=== PATIENT | male | born 1955 | race American Indian/Alaskan Native ===

== ENCOUNTER 2017-05-24 15:01 | Emergency (ER) | payer MEDICAID ==
[2017-05-24] MEDS ORDERED: WATER FOR INJ (PF) 10 ML ONE (19:52)
[2017-05-24 21:01] LABS: Bacteria,Urine 4+ /HPF (Negative); Bilirubin,Urine NEG (Negative); Blood,Urine SM (Negative); Color,Urine Yellow (Yellow); Mucus,Urine 3+ /HPF
[2017-05-24 21:03] LABS: WBC,Urine > 182.0 /HPF (0.0-6.0)
--- NOTE | 2017-05-24 22:23 | Emergency Department Report ---
ED General Adult HPI - General Chief complaint: Tube Replacement Stated complaint: CATH DISPLACED Time Seen by Provider: 05/24/17 19:29 Source: patient, EMS Mode of arrival: Stretcher Limitations: Physical Limitation - History of Present Illness Initial comments: Patient is a 62-year-old Afro-Irish male with a past medical history of advanced MS who is bedbound. Patient has a suprapubic catheter that is no longer draining. Patient complaining of suprapubic fullness. The patient denies fevers chills nausea vomiting diarrhea at this time. The patient has had multiple upper GI bleeds in the past however he is not having a bleeding symptoms at this time. Radiation: abdomen Severity scale (0 -10): 4 Consistency: constant Associated Symptoms: denies: confusion, chest pain, cough, diaphoresis, nausea/ vomiting, rash, shortness of breath, syncope, weakness - Related Data Home Medications Medication Instructions Recorded Confirmed Last Taken ALBUTEROL Inhaler [ProAir HFA 2 puff IH QID PRN 12/20/13 09/10/16 04/14/15 Inhaler] Polyethylene Glycol 3350 [Miralax 17 gm PO QDAY 12/22/14 09/11/16 04/14/15 3350] Ascorbic Acid [Vitamin C] 500 mg PO QDAY 05/04/15 09/11/16 Unknown Multivit with Iron,Minerals 1 each PO QAM 05/04/15 09/11/16 Unknown [Spectravite Senior] Sennosides/Docusate Sodium [Senna 2 each PO QHS 05/04/15 09/11/16 Unknown S Tablet] Carisoprodol [Soma] 350 mg PO TID PRN 01/15/16 09/11/16 Unknown Pregabalin [Lyrica] 100 mg PO BID 01/15/16 09/11/16 Unknown Protein Supplement [Promod] 30 ml PO TID 01/15/16 09/11/16 Unknown guaiFENesin [Guaifenesin ER] 1,200 mg PO Q12H PRN 01/15/16 09/11/16 Unknown Acetaminophen [Acetaminophen TAB] 650 mg PO Q4H PRN 09/10/16 09/10/16 Unknown Baclofen 20 mg PO TID PRN 09/10/16 09/10/16 Unknown Diazepam [Valium] 10 mg PO Q6H PRN 09/11/16 09/11/16 Unknown Furosemide [Lasix TAB] 1 tab PO BID PRN 09/11/16 09/11/16 Unknown Mirtazapine [Remeron] 15 mg PO QHS 09/11/16 09/11/16 Unknown Alpine-3/Dha/Epa/Fish Oil [Alpine 3 1,000 mg PO BID 09/11/16 09/11/16 Unknown 500 Softgel] Potassium Chloride [K-Tab ER] 1 tab PO QDAY 09/11/16 09/11/16 Unknown Warfarin Sodium [Coumadin] 4 mg PO QPM 09/11/16 09/11/16 Unknown Previous Rx's Medication Instructions Recorded Last Taken Type Ciprofloxacin HCl [Cipro] 500 mg PO BID #14 tablet 05/24/17 Unknown Rx Allergies Allergy/AdvReac Type Severity Reaction Status Date / Time carbamazepine [From Tegretol] Allergy Itching Verified 04/27/14 15:30 ketorolac tromethamine Allergy Itching Verified 05/10/14 17:55 [From Toradol] tramadol Allergy Itching Verified 04/27/14 15:30 ED Review of Systems ROS: Stated complaint: CATH DISPLACED Other details as noted in HPI Comment: All other systems reviewed and negative ED Past Medical Hx - Past Medical History Hx Hypertension: Yes Hx Diabetes: Yes Hx Deep Vein Thrombosis: Yes Additional medical history: MS, chronic pain, peripheral neuropathy, upper GI bleed - Surgical History Hx Cholecystectomy: Yes Additional Surgical History: maria del carmen filter, left foot. ana-cath - Social History Smoking Status: Former Smoker Substance Use Type: None - Medications Home Medications: Home Medications Medication Instructions Recorded Confirmed Last Taken Type ALBUTEROL Inhaler [ProAir HFA 2 puff IH QID PRN 12/20/13 09/10/16 04/14/15 History Inhaler] Polyethylene Glycol 3350 [Miralax 17 gm PO QDAY 12/22/14 09/11/16 04/14/15 History 3350] Ascorbic Acid [Vitamin C] 500 mg PO QDAY 05/04/15 09/11/16 Unknown History Multivit with Iron,Minerals 1 each PO QAM 05/04/15 09/11/16 Unknown History [Spectravite Senior] Sennosides/Docusate Sodium [Senna 2 each PO QHS 05/04/15 09/11/16 Unknown History S Tablet] Carisoprodol [Soma] 350 mg PO TID PRN 01/15/16 09/11/16 Unknown History Pregabalin [Lyrica] 100 mg PO BID 01/15/16 09/11/16 Unknown History Protein Supplement [Promod] 30 ml PO TID 01/15/16 09/11/16 Unknown History guaiFENesin [Guaifenesin ER] 1,200 mg PO Q12H PRN 01/15/16 09/11/16 Unknown History Acetaminophen [Acetaminophen TAB] 650 mg PO Q4H PRN 09/10/16 09/10/16 Unknown History Baclofen 20 mg PO TID PRN 09/10/16 09/10/16 Unknown History Diazepam [Valium] 10 mg PO Q6H PRN 09/11/16 09/11/16 Unknown History Furosemide [Lasix TAB] 1 tab PO BID PRN 09/11/16 09/11/16 Unknown History Mirtazapine [Remeron] 15 mg PO QHS 09/11/16 09/11/16 Unknown History Alpine-3/Dha/Epa/Fish Oil [Alpine 3 1,000 mg PO BID 09/11/16 09/11/16 Unknown History 500 Softgel] Potassium Chloride [K-Tab ER] 1 tab PO QDAY 09/11/16 09/11/16 Unknown History Warfarin Sodium [Coumadin] 4 mg PO QPM 09/11/16 09/11/16 Unknown History Ciprofloxacin HCl [Cipro] 500 mg PO BID #14 tablet 05/24/17 Unknown Rx ED Physical Exam - General Limitations: Physical Limitation General appearance: alert, in no apparent distress - Head Head exam: Present: atraumatic, normocephalic - Eye Eye exam: Present: normal appearance - ENT ENT exam: Present: mucous membranes moist - Neck Neck exam: Present: normal inspection - Respiratory Respiratory exam: Present: normal lung sounds bilaterally. Absent: respiratory distress - Cardiovascular Cardiovascular Exam: Present: regular rate, normal rhythm. Absent: systolic murmur, diastolic murmur, rubs, gallop - GI/Abdominal GI/Abdominal exam: Present: soft, tenderness (suprapubic), normal bowel sounds. Absent: distended, guarding, rebound - Rectal Rectal exam: Present: deferred - Extremities Exam Extremities exam: Present: normal inspection - Back Exam Back exam: Present: normal inspection - Neurological Exam Neurological exam: Present: alert, oriented X3 - Psychiatric Psychiatric exam: Present: normal affect, normal mood - Skin Skin exam: Present: warm, dry, intact, normal color. Absent: rash ED Course Vital Signs 05/24/17 05/24/17 05/24/17 16:26 16:30 16:45 Temperature Pulse Rate Respiratory Rate Blood Pressure 125/72 115/72 120/71 Blood Pressure [Right] O2 Sat by Pulse 98 Oximetry 05/24/17 05/24/17 05/24/17 17:00 17:15 17:30 Temperature Pulse Rate Respiratory Rate Blood Pressure 115/70 115/70 111/68 Blood Pressure [Right] O2 Sat by Pulse 96 97 99 Oximetry 05/24/17 05/24/17 05/24/17 17:45 18:00 18:15 Temperature Pulse Rate Respiratory Rate Blood Pressure 113/65 110/73 104/67 Blood Pressure [Right] O2 Sat by Pulse 99 99 Oximetry 05/24/17 05/24/17 05/24/17 18:30 18:45 19:00 Temperature Pulse Rate Respiratory Rate Blood Pressure 102/69 107/67 106/63 Blood Pressure [Right] O2 Sat by Pulse 99 Oximetry 05/24/17 05/24/17 05/24/17 19:05 19:15 19:26 Temperature 98.3 F 98.5 F Pulse Rate 75 Respiratory 17 Rate Blood Pressure 105/68 Blood Pressure 112/74 [Right] O2 Sat by Pulse 97 100 Oximetry 05/24/17 05/24/17 05/24/17 20:00 21:00 22:00 Temperature Pulse Rate Respiratory Rate Blood Pressure 116/77 110/65 109/68 Blood Pressure [Right] O2 Sat by Pulse 98 98 97 Oximetry ED Medical Decision Making - Lab Data Lab Results 05/24/17 Range/Units 20:30 Urine Color Yellow (Yellow) Urine Turbidity Cloudy (Clear) Urine pH 5.0 (5.0-7.0) Ur Specific [place] 1.020 (1.003-1.030) Urine Protein 30 mg/dl (Negative) mg/dL Urine Glucose (UA) Neg (Negative) mg/dL Urine Ketones Neg (Negative) mg/dL Urine Blood Sm (Negative) Urine Nitrite Neg (Negative) Urine Bilirubin Neg (Negative) Urine Urobilinogen 2.0 (<2.0) mg/dL Ur Leukocyte Esterase Lg (Negative) Urine WBC (Auto) > 182.0 H (0.0-6.0) /HPF Urine RBC (Auto) 24.0 (0.0-6.0) /HPF Urine Bacteria (Auto) 4+ (Negative) /HPF Urine WBC Clumps 1+ /HPF Urine Mucus 3+ /HPF - Medical Decision Making Patient suprapubic catheter was exchanged there is good urine flow of clear yellow urine after the exchange. Critical care attestation.: If time is entered above; I have spent that time in minutes in the direct care of this critically ill patient, excluding procedure time. ED Disposition Clinical Impression: UTI (lower urinary tract infection), Urinary retention Disposition: DC- TO HOME OR SELFCARE Is pt being admited?: No Does the pt Need Aspirin: No Condition: Fair Prescriptions: Ciprofloxacin HCl [Cipro] 500 mg PO BID #14 tablet Referrals: PATI PALACIOS MD [Primary Care Provider] - 3-5 Days
[2017-05-25 06:36] VITALS: BP 105/70
== END 2017-05-25 09:00 | disposition home or self-care (01) ==
LOC: ED 15:01
DX: N39.0 Urinary tract infection, site not specified (principal); R33.8 Other retention of urine; I10 Essential (primary) hypertension; E11.42 Type 2 diabetes mellitus with diabetic polyneuropathy; I82.409 Acute embolism and thrombosis of unspecified deep veins of unspecified lower extremity; G89.29 Other chronic pain; Z90.49 Acquired absence of other specified parts of digestive tract; Z88.8 Allergy status to other drugs, medicaments and biological substances; Z87.891 Personal history of nicotine dependence
CPT/HCPCS: 81001; 99283

== ENCOUNTER 2017-06-26 10:32 | Outpatient (CLI) | payer MEDICAID ==
--- NOTE | 2017-06-26 11:30 | Cat Scan Report ---
CT cervical spine without contrast: Neck pain. Transverse images were obtained from the posterior fossa through T2. Coronal and sagittal 2-D reformatted images included. C1-2, C2-3, and C3-4 are unremarkable. Mild degenerative apophyseal joint changes are noted bilaterally at C4-5 with no foraminal stenosis. Anterior bridging spurs however are present with slight narrowing of the interspace. At C5-6 interspace is collapsed and marked apophyseal joint proliferation is noted with moderate bilateral foraminal stenoses. Although the spinal canal may be compromised there does not appear to be significant stenosis. At C6-7 there is also narrowing of the disc space with marked uncal spurring and mild compromise of the left neural foramen. There is no prevertebral swelling. When compared to her comparable exam in December 2015 there are no changes identified. Impressions: Significant degenerative changes at C5-6 and C6-7 as described which appear stable.
== END 2017-06-26 10:33 | disposition home or self-care (01) ==
LOC: CT 10:32
PROVIDERS: ATTEND Internal Medicine
DX: M47.892 Other spondylosis, cervical region (principal)
CPT/HCPCS: 72125

== ENCOUNTER 2019-06-07 13:47 | Emergency (ER) | payer MEDICAID ==
[2019-06-07 16:03] LABS: INR 1.39 (0.87-1.13)
[2019-06-07 16:05] LABS: Basophils % (Auto) 0.5 % (0.0-1.8); Eosinophils # (Auto) 0.1 K/mm3 (0.0-0.4); Lymphocytes # (Auto) 1.7 K/mm3 (1.2-5.4); Lymphocytes % (Auto) 17.5 % (13.4-35.0); Mean Corpuscular HGB Conc 29 % (32-34); Monocytes # (Auto) 0.9 K/mm3 (0.0-0.8); Monocytes % (Auto) 9.2 % (0.0-7.3); Platelet Count 563 K/mm3 (140-440); Red Blood Count 4.51 M/mm3 (3.65-5.03)
[2019-06-07 16:06] LABS: Hematocrit 26.5 % (35.5-45.6); Hemoglobin 7.7 gm/dl (11.8-15.2)
[2019-06-07 16:07] LABS: Mean Corpuscular Volume 59 fl (84-94); Red Cell Distribution Width 20.5 % (13.2-15.2)
[2019-06-07 16:12] LABS: BUN/Creatinine Ratio 34; Blood Urea Nitrogen 17 mg/dL (9-20); Hemolysis Index 2
[2019-06-07] MEDS ORDERED: HYDROcodone/ACETAMINOPHEN 5-325 MG TAB PO ONE (16:15)
[2019-06-07] MEDS ORDERED: diphenhydrAMINE 25 MG CAP PO ONE (16:15)
--- NOTE | 2019-06-07 16:19 | Emergency Department Report ---
ED General Adult HPI - General Chief complaint: Medical Clearance Stated complaint: LOW HEMOGLOBIN Time Seen by Provider: 06/07/19 14:34 Source: EMS Mode of arrival: Stretcher Limitations: No Limitations - History of Present Illness Initial comments: 64-year-old male with a past medical history of multiple sclerosis, chronic pain, chronic pressure ulcers, diabetes, DVT on Coumadin and has a Maria [place] Carmen filter, and hypertension presents to the hospital from [facility] long-term for hemoglobin. As per labs from long-term that were drawn and reported today shows a hemoglobin of 6.7 and a hematocrit of 23.7. Patient complains of chronic back and arm pain secondary to pressure ulcers. No reports from long-term of melena, hematochezia or hematemesis. Patient was sent here for similar complaints in April a repeat hemoglobin was normal and patient was discharged from the ER. Patient states he is [place] and will not accept blood. Severity scale (0 -10): 0 - Related Data Home Medications Medication Instructions Recorded Confirmed Last Taken Albuterol INH(or & Nicu Only) 2 puff IH QID PRN 12/20/13 09/10/16 04/14/15 [ProAir HFA Inhaler] Polyethylene Glycol 3350 [Miralax 17 gm PO QDAY 12/22/14 09/11/16 04/14/15 3350] Ascorbic Acid [Vitamin C] 500 mg PO QDAY 05/04/15 09/11/16 Unknown Multivit with Iron,Minerals 1 each PO QAM 05/04/15 09/11/16 Unknown [Spectravite Senior] Sennosides/Docusate Sodium 2 each PO QHS 05/04/15 09/11/16 Unknown [Senna-S Tablet] Pregabalin [Lyrica] 100 mg PO BID 01/15/16 09/11/16 Unknown Protein Supplement [Promod] 30 ml PO TID 01/15/16 09/11/16 Unknown carisoprodoL [Soma] 350 mg PO TID PRN 01/15/16 09/11/16 Unknown guaiFENesin [Guaifenesin ER] 1,200 mg PO Q12H PRN 01/15/16 09/11/16 Unknown Acetaminophen [Acetaminophen TAB] 650 mg PO Q4H PRN 09/10/16 09/10/16 Unknown Baclofen 20 mg PO TID PRN 09/10/16 09/10/16 Unknown Diazepam [Valium] 10 mg PO Q6H PRN 09/11/16 09/11/16 Unknown Furosemide [Lasix TAB] 1 tab PO BID PRN 09/11/16 09/11/16 Unknown Mirtazapine [Remeron] 15 mg PO QHS 09/11/16 09/11/16 Unknown Caroleen-3/Dha/Epa/Fish Oil [Caroleen 3 1,000 mg PO BID 09/11/16 09/11/16 Unknown 500 Softgel] Potassium Chloride [K-Tab ER] 1 tab PO QDAY 09/11/16 09/11/16 Unknown Warfarin Sodium [Coumadin] 4 mg PO QPM 09/11/16 09/11/16 Unknown Previous Rx's Medication Instructions Recorded Last Taken Type Ciprofloxacin HCl [Cipro] 500 mg PO BID #14 tablet 05/24/17 Unknown Rx Allergies Allergy/AdvReac Type Severity Reaction Status Date / Time carbamazepine [From Tegretol] Allergy Itching Verified 04/27/14 15:30 ketorolac tromethamine Allergy Itching Verified 05/10/14 17:55 [From Toradol] tramadol Allergy Itching Verified 04/27/14 15:30 ED Review of Systems ROS: Stated complaint: LOW HEMOGLOBIN Other details as noted in HPI Comment: All other systems reviewed and negative ED Past Medical Hx - Past Medical History Previous Medical History?: Yes Hx Hypertension: Yes Hx Diabetes: Yes Hx Deep Vein Thrombosis: Yes Additional medical history: MS, chronic pain, peripheral neuropathy, upper GI bleed - Surgical History Past Surgical History?: Yes Hx Cholecystectomy: Yes Additional Surgical History: maria del carmen filter, left foot. ana-cath - Social History Smoking Status: Never Smoker Substance Use Type: None - Medications Home Medications: Home Medications Medication Instructions Recorded Confirmed Last Taken Type Albuterol INH(or & Nicu Only) 2 puff IH QID PRN 12/20/13 09/10/16 04/14/15 History [ProAir HFA Inhaler] Polyethylene Glycol 3350 [Miralax 17 gm PO QDAY 12/22/14 09/11/16 04/14/15 History 3350] Ascorbic Acid [Vitamin C] 500 mg PO QDAY 05/04/15 09/11/16 Unknown History Multivit with Iron,Minerals 1 each PO QAM 05/04/15 09/11/16 Unknown History [Spectravite Senior] Sennosides/Docusate Sodium 2 each PO QHS 05/04/15 09/11/16 Unknown History [Senna-S Tablet] Pregabalin [Lyrica] 100 mg PO BID 01/15/16 09/11/16 Unknown History Protein Supplement [Promod] 30 ml PO TID 01/15/16 09/11/16 Unknown History carisoprodoL [Soma] 350 mg PO TID PRN 01/15/16 09/11/16 Unknown History guaiFENesin [Guaifenesin ER] 1,200 mg PO Q12H PRN 01/15/16 09/11/16 Unknown History Acetaminophen [Acetaminophen TAB] 650 mg PO Q4H PRN 09/10/16 09/10/16 Unknown History Baclofen 20 mg PO TID PRN 09/10/16 09/10/16 Unknown History Diazepam [Valium] 10 mg PO Q6H PRN 09/11/16 09/11/16 Unknown History Furosemide [Lasix TAB] 1 tab PO BID PRN 09/11/16 09/11/16 Unknown History Mirtazapine [Remeron] 15 mg PO QHS 09/11/16 09/11/16 Unknown History Caroleen-3/Dha/Epa/Fish Oil [Caroleen 3 1,000 mg PO BID 09/11/16 09/11/16 Unknown History 500 Softgel] Potassium Chloride [K-Tab ER] 1 tab PO QDAY 09/11/16 09/11/16 Unknown History Warfarin Sodium [Coumadin] 4 mg PO QPM 09/11/16 09/11/16 Unknown History Ciprofloxacin HCl [Cipro] 500 mg PO BID #14 tablet 05/24/17 Unknown Rx ED Physical Exam - General Limitations: No Limitations - Other Other exam information: General: Chronic physical limitation Head exam: Atraumatic, normocephalic Eyes exam: Normal appearance ENT: Moist mucous membrane Neck exam: Normal inspection Respiratory exam: Clear to auscultation bilateral, no wheezes, rales, crackles Cardiovascular: Normal rate and rhythm Abdomen: Soft, nondistended, and nontender, with normal bowel sounds, no rebound, or guarding, suprapubic cath. Rectal: Light brown stool without melena or hematochezia guaiac-negative Extremity: Patient is a functional quadriplegia Back: Sacral pressure ulcer Neurologic: Alert, oriented x3, beats clear, functional quadriplegic with minimal movement of extremities Psychiatric: normal affect, normal mood Skin: Multiple chronic pressure ulcers including sacral area and left arm ED Course Vital Signs 06/07/19 06/07/19 14:22 14:27 Temperature 99.2 F Pulse Rate 107 H 107 H Respiratory 18 18 Rate Blood Pressure 121/74 Blood Pressure 121/74 [Right] O2 Sat by Pulse 94 95 Oximetry - Consultations Consultation #1: 06/07/19 16:25 case d/w Dr palacios, informed pt will be sent back to [place] since h/h normal ED Medical Decision Making - Lab Data Result diagrams: 06/07/19 15:18 06/07/19 15:18 Lab Results 06/07/19 06/07/19 06/07/19 Range/Units 15:18 15:18 15:18 WBC 9.8 (4.5-11.0) K/mm3 RBC 4.51 (3.65-5.03) M/mm3 Hgb 7.7 L (11.8-15.2) gm/dl Hct 26.5 L (35.5-45.6) % MCV 59 L (84-94) fl MCH 17 L (28-32) pg MCHC 29 L (32-34) % RDW 20.5 H (13.2-15.2) % Plt Count 563 H (140-440) K/mm3 Lymph % (Auto) 17.5 (13.4-35.0) % [place] % (Auto) 9.2 H (0.0-7.3) % Eos % (Auto) 1.0 (0.0-4.3) % Baso % (Auto) 0.5 (0.0-1.8) % Lymph # 1.7 (1.2-5.4) K/mm3 [place] # 0.9 H (0.0-0.8) K/mm3 Eos # 0.1 (0.0-0.4) K/mm3 Baso # 0.0 (0.0-0.1) K/mm3 Seg Neutrophils % 71.8 H (40.0-70.0) % Seg Neutrophils # 7.0 (1.8-7.7) K/mm3 PT 17.3 H (12.2-14.9) Sec. INR 1.39 H (0.87-1.13) APTT 39.0 H (24.2-36.6) Sec. Sodium 134 L (137-145) mmol/L Potassium 3.7 (3.6-5.0) mmol/L Chloride 97.4 L (98-107) mmol/L Carbon Dioxide 25 (22-30) mmol/L Anion Gap 15 mmol/L BUN 17 (9-20) mg/dL Creatinine 0.5 L (0.8-1.5) mg/dL Estimated GFR > 60 ml/min BUN/Creatinine Ratio 34 % Glucose 130 H (75-100) mg/dL Calcium 9.0 (8.4-10.2) mg/dL Blood Type 06/07/19 Range/Units 15:18 WBC (4.5-11.0) K/mm3 RBC (3.65-5.03) M/mm3 Hgb (11.8-15.2) gm/dl Hct (35.5-45.6) % MCV (84-94) fl MCH (28-32) pg MCHC (32-34) % RDW (13.2-15.2) % Plt Count (140-440) K/mm3 Lymph % (Auto) (13.4-35.0) % [place] % (Auto) (0.0-7.3) % Eos % (Auto) (0.0-4.3) % Baso % (Auto) (0.0-1.8) % Lymph # (1.2-5.4) K/mm3 [place] # (0.0-0.8) K/mm3 Eos # (0.0-0.4) K/mm3 Baso # (0.0-0.1) K/mm3 Seg Neutrophils % (40.0-70.0) % Seg Neutrophils # (1.8-7.7) K/mm3 PT (12.2-14.9) Sec. INR (0.87-1.13) APTT (24.2-36.6) Sec. Sodium (137-145) mmol/L Potassium (3.6-5.0) mmol/L Chloride (98-107) mmol/L Carbon Dioxide (22-30) mmol/L Anion Gap mmol/L BUN (9-20) mg/dL Creatinine (0.8-1.5) mg/dL Estimated GFR ml/min BUN/Creatinine Ratio % Glucose (75-100) mg/dL Calcium (8.4-10.2) mg/dL Blood Type A POSITIVE - Medical Decision Making Patient's hemoglobin is at his baseline. INR is subtherapeutic. No signs of acute active reading. Patient also would not accept leg due to visible lesion. Patient complaining of chronic pain and provided [place] and Benadryl in the ED. Will be discharged home to follow-up with PMD. - Differential Diagnosis anemia, GI bleed, coagulopathy Critical Care Time: No Critical care attestation.: If time is entered above; I have spent that time in minutes in the direct care of this critically ill patient, excluding procedure time. ED Disposition Clinical Impression: Subtherapeutic international normalized ratio (INR), Chronic anemia, Chronic pain Disposition: DC- TO HOME OR SELFCARE Is pt being admited?: No Does the pt Need Aspirin: No Condition: Stable Instructions: Chronic Pain (ED), Anemia (ED) Additional Instructions: Follow-up with your doctor. Return is symptoms worsen as indicated by your discharge instructions. Referrals: PATI PALACIOS MD [Primary Care Provider] - 3-5 Days Time of Disposition: 16:26
[2019-06-07 17:23] VITALS: BP 104/64
== END 2019-06-07 19:52 | disposition home or self-care (01) ==
LOC: ED 13:47
DX: D53.9 Nutritional anemia, unspecified (principal); G89.29 Other chronic pain; R79.1 Abnormal coagulation profile; I10 Essential (primary) hypertension; E11.21 Type 2 diabetes mellitus with diabetic nephropathy; Z90.49 Acquired absence of other specified parts of digestive tract; Z88.8 Allergy status to other drugs, medicaments and biological substances; Z79.899 Other long term (current) drug therapy; Z98.890 Other specified postprocedural states
CPT/HCPCS: 36415; 80048; 82271; 85025; 85610; 85730; 86850; 86900; 86901; 99283; 99284

== ENCOUNTER 2019-11-30 07:54 | Outpatient (CLI) | payer MEDICAID ==
[2019-12-01 16:39] LABS: INR 4.25 (0.87-1.13)
== END 2019-11-30 07:55 | disposition home or self-care (01) ==
LOC: LABHHL 07:54
PROVIDERS: ATTEND Internal Medicine
DX: I82.502 Chronic embolism and thrombosis of unspecified deep veins of left lower extremity (principal)
CPT/HCPCS: 36415; 85610

== ENCOUNTER 2021-11-13 08:22 | Inpatient (IN) | payer MEDICARE ==
[2021-11-13] MEDS ORDERED: SODIUM CHLORIDE 0.9% 1000 ML 1,000 ML ONE (08:51)
[2021-11-13] MEDS ORDERED: ONDANSETRON 4 MG/2 ML INJ IV ONE (08:54)
[2021-11-13] MEDS ORDERED: SODIUM CHLORIDE 0.9% 1000 ML 1,000 ML IV ONE (08:54)
[2021-11-13] MEDS ORDERED: ETOMIDATE 20 MG/10 ML INJ IV ONE ×2 (09:19→09:31)
[2021-11-13] MEDS ORDERED: MIDAZOLAM 2 MG/2 ML INJ ONE (09:19)
[2021-11-13] MEDS ORDERED: ROCURONIUM 50 MG/5 ML INJ IV ONE ×3 (09:20→09:31)
[2021-11-13] MEDS: PANTOPRAZOLE 80 MG in SODIUM CHLORIDE 0.9% 100 ML IV SCH ×2 (09:21→23:14)
[2021-11-13] MEDS ORDERED: MIDAZOLAM 5 MG/5 ML INJ MDV IV ONE (09:32)
[2021-11-13] MEDS ORDERED: NORepinephrine/NS 8 MG-250 ML 8 MG/250 ML INFUS..BTL IV ONE (09:33)
[2021-11-13 09:35] LABS: Hemoglobin 6.2 gm/dl (11.8-15.2); Mean Corpuscular HGB Conc 31 % (32-34); Mean Corpuscular Volume 73 fl (84-94); Platelet Count 656 K/mm3 (140-440); Red Blood Count 2.74 M/mm3 (3.65-5.03)
[2021-11-13] MEDS: NORepinephrine/NS 8 MG-250 ML 8 MG/250 ML INFUS..BTL IV SCH ×2 (09:40→21:54)
[2021-11-13 09:47] LABS: Red Cell Distribution Width 20.9 % (13.2-15.2)
--- NOTE | 2021-11-13 09:50 | Emergency Department Report ---
ED Shortness of Breath HPI - General Chief Complaint: Dyspnea/Respdistress Stated Complaint: FAILURE TO THRIVE Time Seen by Provider: 11/13/21 08:53 Source: EMS Mode of arrival: Stretcher Limitations: Other - History of Present Illness Initial Comments: 66 yo M with h/o Paraplegia [place] [facility] with difficulty breathing that started yesterday and progressively getting worse. Pt according to NH and EMS aspirate on his food yesterday and symptoms has been worsening since then. He has failed to thrive with h/o Dementia, HTn, DM and GERD. Pt denies any abdominal pain or chest pain but confirm the sob. He initially says no to intubation or resuscitation and immediately said he is not sure. Pt's medical record reviewed from halfway and noted to be full code. No other modifying or associated factors reported. - Related Data Home Medications Medication Instructions Recorded Confirmed Last Taken Albuterol Mdi (or & Nicu Only) 2 puff IH QID PRN 12/20/13 09/10/16 04/14/15 [ProAir HFA Inhaler] polyethylene glycoL 3350 [Miralax 17 gm PO QDAY 12/22/14 09/11/16 04/14/15 3350] Ascorbic Acid [Vitamin C] 500 mg PO QDAY 05/04/15 09/11/16 Unknown Multivit with Iron,Minerals 1 each PO QAM 05/04/15 09/11/16 Unknown [Spectravite Senior] Sennosides/Docusate Sodium 2 each PO QHS 05/04/15 09/11/16 Unknown [Senna-S Tablet] Pregabalin [Lyrica] 100 mg PO BID 01/15/16 09/11/16 Unknown Protein Supplement [Promod] 30 ml PO TID 01/15/16 09/11/16 Unknown carisoprodoL [Soma] 350 mg PO TID PRN 01/15/16 09/11/16 Unknown guaiFENesin [Guaifenesin ER] 1,200 mg PO Q12H PRN 01/15/16 09/11/16 Unknown Acetaminophen [Acetaminophen TAB] 650 mg PO Q4H PRN 09/10/16 09/10/16 Unknown Baclofen 20 mg PO TID PRN 09/10/16 09/10/16 Unknown Diazepam [Valium] 10 mg PO Q6H PRN 09/11/16 09/11/16 Unknown Furosemide [Lasix TAB] 1 tab PO BID PRN 09/11/16 09/11/16 Unknown Mirtazapine [Remeron] 15 mg PO QHS 09/11/16 09/11/16 Unknown [place]-3/Dha/Epa/Fish Oil [[place] 3 1,000 mg PO BID 09/11/16 09/11/16 Unknown 500 Softgel] Potassium Chloride [K-Tab ER] 1 tab PO QDAY 09/11/16 09/11/16 Unknown Warfarin Sodium [Coumadin] 4 mg PO QPM 09/11/16 09/11/16 Unknown Ascorbic Acid [Vitamin C] 500 mg PO BID 02/04/20 02/14/20 Unknown Dextran 70/Hypromellose 1 each OP DAILY 02/04/20 02/14/20 Unknown [Artificial Tears] Ferrous Sulfate [Feosol 325 MG tab] 325 mg PO BID 02/04/20 02/14/20 Unknown Mirtazapine 7.5 mg PO QHS 02/04/20 02/14/20 Unknown Pregabalin [Lyrica] 100 mg PO BID 02/04/20 02/14/20 Unknown Protein Supplement [Promod] 30 ml PO TID 02/04/20 02/14/20 Unknown Warfarin [Coumadin] 5 mg PO QDAY 02/04/20 02/14/20 Unknown fentaNYL [Fentanyl] 1 each TD DAILY 02/04/20 02/14/20 Unknown Previous Rx's Medication Instructions Recorded Last Taken Type Ciprofloxacin HCl [Cipro] 500 mg PO BID #14 tablet 05/24/17 Unknown Rx Pantoprazole [Protonix TAB] 40 mg PO BIDAC #60 tablet 02/18/20 Unknown Rx Vancomycin 125 mg PO Q6HR 10 Days 02/18/20 Unknown Rx Cefepime 1 gm IV Q24H 7 Days vial 02/23/21 Unknown Rx Allergies Allergy/AdvReac Type Severity Reaction Status Date / Time carbamazepine [From Tegretol] Allergy Itching Verified 08/14/21 06:58 ketorolac tromethamine Allergy Itching Verified 08/14/21 06:58 [From Toradol] tramadol Allergy Itching Verified 08/14/21 06:58 hydromorphone AdvReac Unknown Verified 08/14/21 06:58 ketorolac [From Toradol] AdvReac Unknown Verified 08/14/21 06:58 meperidine AdvReac Unknown Verified 08/14/21 06:58 ED Review of Systems ROS: Stated complaint: FAILURE TO THRIVE Other details as noted in HPI Comment: All other systems reviewed and negative Constitutional: weakness Respiratory: orthopnea, shortness of breath ED Past Medical Hx - Past Medical History Hx Hypertension: Yes Hx Diabetes: Yes Hx Deep Vein Thrombosis: Yes Hx GERD: Yes Hx Asthma: Yes Hx Dementia: Yes Additional medical history: Paraplegia. Multiple Sclerosis. Depression. UTI. Dysphagia/Oropharangeal Phase. Constipation - Surgical History Hx Cholecystectomy: Yes Additional Surgical History: [employer]ia [place] [employer] filter, left foot. ana-cath - Social History Smoking Status: Unknown if ever smoked - Medications Home Medications: Home Medications Medication Instructions Recorded Confirmed Last Taken Type Albuterol Mdi (or & Nicu Only) 2 puff IH QID PRN 12/20/13 09/10/16 04/14/15 History [ProAir HFA Inhaler] polyethylene glycoL 3350 [Miralax 17 gm PO QDAY 12/22/14 09/11/16 04/14/15 History 3350] Ascorbic Acid [Vitamin C] 500 mg PO QDAY 05/04/15 09/11/16 Unknown History Multivit with Iron,Minerals 1 each PO QAM 05/04/15 09/11/16 Unknown History [Spectravite Senior] Sennosides/Docusate Sodium 2 each PO QHS 05/04/15 09/11/16 Unknown History [Senna-S Tablet] Pregabalin [Lyrica] 100 mg PO BID 01/15/16 09/11/16 Unknown History Protein Supplement [Promod] 30 ml PO TID 01/15/16 09/11/16 Unknown History carisoprodoL [Soma] 350 mg PO TID PRN 01/15/16 09/11/16 Unknown History guaiFENesin [Guaifenesin ER] 1,200 mg PO Q12H PRN 01/15/16 09/11/16 Unknown History Acetaminophen [Acetaminophen TAB] 650 mg PO Q4H PRN 09/10/16 09/10/16 Unknown History Baclofen 20 mg PO TID PRN 09/10/16 09/10/16 Unknown History Diazepam [Valium] 10 mg PO Q6H PRN 09/11/16 09/11/16 Unknown History Furosemide [Lasix TAB] 1 tab PO BID PRN 09/11/16 09/11/16 Unknown History Mirtazapine [Remeron] 15 mg PO QHS 09/11/16 09/11/16 Unknown History [place]-3/Dha/Epa/Fish Oil [[place] 3 1,000 mg PO BID 09/11/16 09/11/16 Unknown History 500 Softgel] Potassium Chloride [K-Tab ER] 1 tab PO QDAY 09/11/16 09/11/16 Unknown History Warfarin Sodium [Coumadin] 4 mg PO QPM 09/11/16 09/11/16 Unknown History Ciprofloxacin HCl [Cipro] 500 mg PO BID #14 tablet 05/24/17 Unknown Rx Ascorbic Acid [Vitamin C] 500 mg PO BID 02/04/20 02/14/20 Unknown History Dextran 70/Hypromellose 1 each OP DAILY 02/04/20 02/14/20 Unknown History [Artificial Tears] Ferrous Sulfate [Feosol 325 MG tab] 325 mg PO BID 02/04/20 02/14/20 Unknown H istory Mirtazapine 7.5 mg PO QHS 02/04/20 02/14/20 Unknown History Pregabalin [Lyrica] 100 mg PO BID 02/04/20 02/14/20 Unknown History Protein Supplement [Promod] 30 ml PO TID 02/04/20 02/14/20 Unknown History Warfarin [Coumadin] 5 mg PO QDAY 02/04/20 02/14/20 Unknown History fentaNYL [Fentanyl] 1 each TD DAILY 02/04/20 02/14/20 Unknown History Pantoprazole [Protonix TAB] 40 mg PO BIDAC #60 tablet 02/18/20 Unknown Rx Vancomycin 125 mg PO Q6HR 10 Days 02/18/20 Unknown Rx Cefepime 1 gm IV Q24H 7 Days vial 02/23/21 Unknown Rx ED Physical Exam - General Limitations: Other (dementia and clinical presentation ) General appearance: lethargic, in distress (due to dyspnea) - Head Head exam: Present: atraumatic - Eye Eye exam: Present: normal appearance - ENT ENT exam: Present: mucous membranes dry - Neck Neck exam: Absent: tenderness, thyromegaly - Respiratory Respiratory exam: Present: respiratory distress (mild to moderate ), other (distance heart sound ) - Cardiovascular Cardiovascular Exam: Present: tachycardia - GI/Abdominal GI/Abdominal exam: Present: soft, normal bowel sounds. Absent: distended, t enderness, guarding - Extremities Exam Extremities exam: Present: pedal edema (+1 bilaterally with and paraplegic ) - Back Exam Back exam: Absent: tenderness - Neurological Exam Neurological exam: Present: alert, oriented X3 - Psychiatric Psychiatric exam: Present: normal affect - Skin Skin exam: Present: warm, dry ED Course Vital Signs 11/13/21 11/13/21 11/13/21 08:40 08:46 08:49 Temperature Pulse Rate 136 H 135 H 138 H Respiratory 43 H 51 H 48 H Rate Blood Pressure Blood Pressure 81/51 [Left] O2 Sat by Pulse 85 94 85 Oximetry 11/13/21 11/13/21 11/13/21 09:00 09:23 09:25 Temperature Pulse Rate 134 H 135 H 132 H Respiratory 47 H 49 H 42 H Rate Blood Pressure 93/74 Blood Pressure 90/52 [Left] O2 Sat by Pulse 100 Oximetry 11/13/21 11/13/21 11/13/21 09:30 09:45 10:00 Temperature Pulse Rate 123 H 129 H 131 H Respiratory 23 21 17 Rate Blood Pressure 93/49 93/58 110/67 Blood Pressure [Left] O2 Sat by Pulse 100 Oximetry 11/13/21 11/13/21 11/13/21 10:15 10:30 10:45 Temperature 96.5 F L Pulse Rate 133 H 132 H 132 H Respiratory 16 16 16 Rate Blood Pressure 106/70 100/70 105/71 Blood Pressure [Left] O2 Sat by Pulse 100 100 Oximetry 11/13/21 11/13/21 11/13/21 11:00 11:15 11:24 Temperature Pulse Rate 127 H 124 H 124 H Respiratory 15 16 Rate Blood Pressure 102/68 105/69 111/69 Blood Pressure [Left] O2 Sat by Pulse 100 100 100 Oximetry 11/13/21 11/13/21 11/13/21 11:30 11:45 12:00 Temperature Pulse Rate 126 H 117 H 118 H Respiratory 16 16 16 Rate Blood Pressure 117/73 81/50 93/56 Blood Pressure [Left] O2 Sat by Pulse 100 100 Oximetry 11/13/21 11/13/21 11/13/21 12:15 12:30 12:45 Temperature Pulse Rate 119 H 121 H 128 H Respiratory 16 16 16 Rate Blood Pressure 97/62 94/63 80/58 Blood Pressure [Left] O2 Sat by Pulse 100 Oximetry - Consultations Consultation #1: 11/13/21 13:00 Dr Mckeon consulted who wanted Dr Corbin notified-- he was called Consultation #2: 11/13/21 13:00 Dr Corbin consulted who wanted patient started on vancomycin and cefepime--he suggested central line-- but patient already have 2 peripheral IV line,and a Port with IJ. 11/13/21 13:01 11/13/21 13:02 - Intubation Time Out Performed: Yes Sedative: Etomidate Mg Given: 20 Paralytic: Rocuronium Mg Given: 60 Laryngoscope: Johnson Size: 4 ET Tube Size: 7.5 Tube Secured Depth (cm): 23 Tube Secured Location: lips Tube Placement Confirmation: visualized tube passing t Patient Tolerated Procedure: well, no complications Intubation Complications: none Additional Comments: pt tolerated procedure well--with no obvious complication ED Medical Decision Making - Lab Data Result diagrams: 11/13/21 09:03 11/13/21 09:03 - EKG Data -: EKG Interpreted by Ne EKG shows normal: sinus rhythm Rate: tachycardia - EKG Data 11/13/21 10:15 Noted with sinus tachycardia at the rate of 135 beats per minutes, nonspecific ST abnormality with normal QTC in this abnormal ECG. - Radiology Data FINDINGS: SUPPORT DEVICES: ET tube tip is about 7 cm above the sofiya. Right IJ central venous catheter in appropriate position. HEART / MEDIASTINUM: No significant abnormality. LUNGS / PLEURA: There is a moderate left pleural effusion with left basilar a telectasis. No appreciable pneumothorax. ADDITIONAL FINDINGS: No significant additional findings. - Medical Decision Making Here with shortness of breath--this is likely aspirated pneumonia/pneumonitis considering the even during eating yesterday-- but among other differential diagnosis could be but not limited to myocardiac infarction, pulmonary embolism, acute exacerbation of asthma, pneumothorax, pneumonia or Viral or Bacterial Upper/Lower respiratory tract infection or other systemic infection.--To rule out the above will go ahead and order EKG, cardiac enzyme including troponin, BNP, CKMB, chest x-ray, CBC, CMP, UA and or D-dimer. In the meantime we will go ahead and start aggressive ivf hydration with ns considering hypotension with tachycardia--which raises concern for sepsis in this critical patient-- Will also start levophed for the hypotension since it was not responding to the pressured bag ns. I witnessed patient desat on non rebreather with 10 L so after confirming this patient to be full code will immediately plan to intubate. Please see procedure note for details. Will wait for other labs to support sepsis and then start antibiotics. Source is likely pulmonary. CXR shows ET above the sofiya but with no significant pulmonary infiltrate but moderate left pleural effusion-- that could be contributing to his difficulty breathing but not likely the main culprit-- will continue to monitor and digging in for other source-- UA still pending at this time. Noted with leukocytosis with a white count of more than 19,000, BUN and creatinine of 45/0.7 likely as a result of dehydration--also noted with low H&H of 6.2/20--with no sign of bleeding but with history of anemia that likely worsening--we will go ahead and order 1 unit of red blood cells and continue to monitor. At this point Dr. Mckeon who is the hospitalist on-call was paged and patient discussed and accepted patient for further evaluation and treatment. He however wanted Dr. Corbin to be consulted for possible ICU placement. Critical Care Time: Yes (120) Critical care time in (mins) excluding proc time.: 120 Critical care attestation.: If time is entered above; I have spent that time in minutes in the direct care of this critically ill patient, excluding procedure time. Patient brought in with dyspnea and noted to be tachycardic and hypotensive and lethargic and due to high probability of clinically significant, life threatening deterioration, this patient required my highest level of preparedness to intervene emergently and I personally spent this critical care time directly and personally managing this patient. This critical care time included obtaining a history; examining this patient; pulse oximetry ; ordering and review of studies ; arranging urgent treatment with development of a management plan ; evaluation of patient's response to treatment ; frequent reassessment ; and, discussion with other providers. This critical care time was performed to assess and manage the high probability of imminent, life- threatening deterioration that could result in multiple organ damage if not done in a timely fashion. Critical Care Time: 120 ED Disposition Clinical Impression: Tachycardia, Hypotensive episode, Pleural effusion, left Dyspnea Qualifiers: Dyspnea type: acute respiratory distress Qualified Code(s): R06.03 - Acute respiratory distress Anemia Qualifiers: Anemia type: unspecified type Qualified Code(s): D64.9 - Anemia, unspecified Disposition: 09 ADMITTED INPATIENT Is pt being admited?: No Does the pt Need Aspirin: No Condition: Stable Time of Disposition: 13:03 (Dr Mckeon and Emerald consulted )
[2021-11-13 09:51] LABS: Alanine Aminotransferase 10 units/L (7-56); Albumin 2.5 g/dL (3.9-5); Blood Urea Nitrogen 45 mg/dL (9-20); Calcium 8.5 mg/dL (8.4-10.2); Hemolysis Index 2; INR 1.2 (0.87-1.13)
[2021-11-13 09:52] LABS: BUN/Creatinine Ratio 64
--- NOTE | 2021-11-13 09:56 | XRay Report ---
CHEST 1 VIEW 11/13/2021 8:50 AM INDICATION / CLINICAL INFORMATION: Shortness of breath. COMPARISON: 02/21/2021 FINDINGS: SUPPORT DEVICES: ET tube tip is about 7 cm above the sofiya. Right IJ central venous catheter in appr opriate position. HEART / MEDIASTINUM: No significant abnormality. LUNGS / PLEURA: There is a moderate left pleural effusion with left basilar atelectasis. No appreciab le pneumothorax. ADDITIONAL FINDINGS: No significant additional findings. Signer Name: Forrest Webster MD Signed: 11/13/2021 9:52 AM Workstation Name: [id number]
[2021-11-13 09:57] LABS: Free T4 (Free Thyroxine) 1.27 ng/dL (0.76-1.46)
[2021-11-13] MEDS ORDERED: fentaNYL 100 MCG/2 ML INJ IV PRN (10:42)
[2021-11-13 10:52] LABS: ABG Base Excess 1.1 mmol/L (-2.0-3.0); ABG HCO3 25.3 mmol/L (20.0-26.0); ABG Methemoglobin 0.5 % (0.0-1.5); ABG Oxygen Saturation 99.5 % (95.0-99.0); ABG PCO2 37.8 mm Hg; ABG PH 7.443 pH Units (7.350-7.450)
[2021-11-13 10:54] LABS: ABG PO2 284.1 mm Hg (80.0-90.0)
[2021-11-13 11:06] LABS: Basophils % (Manual) 0 % (0.0-1.8); Eosinophils % (Manual) 0 % (0.0-4.3); Total Cells Counted 100
[2021-11-13 11:07] LABS: Anisocytosis 2+; Hypochromasia 1+; Platelet Estimate Consistent w Auto
[2021-11-13] MEDS: fentaNYL DRIP Premix 2,000 MCG/100 ML BAG IV SCH ×2 (11:37→18:00)
[2021-11-13 12:55] LABS: Color,Urine Yellow (Yellow)
[2021-11-13 12:58] LABS: Blood,Urine Large (Negative)
[2021-11-13 13:00] LABS: Bilirubin,Urine Negative (Negative)
[2021-11-13] MEDS ORDERED: CEFEPIME/NS 1 GM/100 ML 1 GM/100 ML BAG IV ONE (13:06)
[2021-11-13] MEDS ORDERED: ACETAMINOPHEN 650 MG RECT SUPP PR PRN (13:07)
[2021-11-13 13:13] LABS: RBC,Urine > 182.0 /HPF (0.0-6.0); WBC,Urine > 182.0 /HPF (0.0-6.0)
[2021-11-13 13:19] LABS: Bacteria,Urine 2+ /HPF (Negative)
[2021-11-13 13:41] LABS: Chol/HDL Ratio 4.1 %
[2021-11-13] MEDS ORDERED: SODIUM CHLORIDE 0.9% 500 ML 500 ML IV ONE (13:41)
--- NOTE | 2021-11-13 14:04 | XRay Report ---
ABDOMEN 1 VIEW(S) INDICATION / CLINICAL INFORMATION: NG tube verification. COMPARISON: None available. FINDINGS: TUBES / LINES: Esophagogastric tube tip and side-port are within the stomach. BOWEL GAS PATTERN: There is mild gaseous distention of small bowel. Mild constipation is noted. FREE AIR / EXTRALUMINAL GAS: None seen. ADDITIONAL FINDINGS: IVC filter is noted. IMPRESSION: 1. Esophagogastric tube is in satisfactory position. 2. In addition to constipation with probable rectal fecal impaction, there is mild gaseous distention of small bowel diffusely. Signer Name: Quincy Bentley MD Signed: 11/13/2021 1:59 PM Workstation Name: [email or web address]
[2021-11-13] MEDS: VANCOMYCIN/NS 1 GM/250 ML 1 GM/250 ML BAG IV ONE ×2 (16:35→22:29)
[2021-11-13] MEDS ORDERED: ONDANSETRON 4 MG/2 ML INJ IV PRN (21:18)
[2021-11-13] MEDS ORDERED: METOCLOPRAMIDE 10 MG/2 ML INJ IV PRN (21:18)
[2021-11-13] MEDS ORDERED: ACETAMINOPHEN 325 MG TAB PO PRN (21:18)
[2021-11-13] MEDS ORDERED: IPRATROPIUM/ALBUTEROL SULFATE 3 ML AMPUL.NEB IH PRN (21:21)
--- NOTE | 2021-11-13 21:22 | History and Physical Report ---
History of Present Illness Date of examination: 11/13/21 Date of admission: 11/13/21 13:11 Chief complaint: Increasing shortness of breath for 1 day History of present illness: 66-year-old male with multiple medical problems and from custodial facility with past medical history of paraplegia severe malnutrition COPD and congestive heart failure sent in for increasing shortness of breath since last night. Patient also has failure to thrive with history of dementia. Patient was in severe respiratory distress and patient was intubated in the emergency room. No fever or chills. Patient was hypoxic at the time of intubation. - Past Medical History --Hypertension: Yes --Diabetes: Yes --Deep Vein Thrombosis: Yes --GERD: Yes --Asthma: Yes --Dementia: Yes --Additional medical history: Paraplegia. Multiple Sclerosis. Depression. UTI. Dysphagia/Oropharangeal Phase. Constipation - Surgical History --Cholecystectomy: Yes --Additional Surgical History: maria del carmen filter, left foot. ana-cath - Social History --Smoking Status: Unknown if ever smoked Review of Systems ROS: Stated complaint: FAILURE TO THRIVE Other details as noted in HPI Comment: All other systems reviewed and negative Constitutional: weakness Respiratory: orthopnea, shortness of breath Medications and Allergies Allergies Allergy/AdvReac Type Severity Reaction Status Date / Time carbamazepine [From Tegretol] Allergy Itching Verified 08/14/21 06:58 ketorolac tromethamine Allergy Itching Verified 08/14/21 06:58 [From Toradol] tramadol Allergy Itching Verified 08/14/21 06:58 hydromorphone AdvReac Unknown Verified 08/14/21 06:58 ketorolac [From Toradol] AdvReac Unknown Verified 08/14/21 06:58 meperidine AdvReac Unknown Verified 08/14/21 06:58 Home Medications Medication Instructions Recorded Confirmed Last Taken Type Albuterol Mdi (or & Nicu Only) 2 puff IH QID PRN 12/20/13 09/10/16 04/14/15 History [ProAir HFA Inhaler] polyethylene glycoL 3350 [Miralax 17 gm PO QDAY 12/22/14 09/11/16 04/14/15 History 3350] Ascorbic Acid [Vitamin C] 500 mg PO QDAY 05/04/15 09/11/16 Unknown History Multivit with Iron,Minerals 1 each PO QAM 05/04/15 09/11/16 Unknown History [Spectravite Senior] Sennosides/Docusate Sodium 2 each PO QHS 05/04/15 09/11/16 Unknown History [Senna-S Tablet] Pregabalin [Lyrica] 100 mg PO BID 01/15/16 09/11/16 Unknown History Protein Supplement [Promod] 30 ml PO TID 01/15/16 09/11/16 Unknown History carisoprodoL [Soma] 350 mg PO TID PRN 01/15/16 09/11/16 Unknown History guaiFENesin [Guaifenesin ER] 1,200 mg PO Q12H PRN 01/15/16 09/11/16 Unknown History Acetaminophen [Acetaminophen TAB] 650 mg PO Q4H PRN 09/10/16 09/10/16 Unknown History Baclofen 20 mg PO TID PRN 09/10/16 09/10/16 Unknown History Diazepam [Valium] 10 mg PO Q6H PRN 09/11/16 09/11/16 Unknown History Furosemide [Lasix TAB] 1 tab PO BID PRN 09/11/16 09/11/16 Unknown History Mirtazapine [Remeron] 15 mg PO QHS 09/11/16 09/11/16 Unknown History [place]-3/Dha/Epa/Fish Oil [[place] 3 1,000 mg PO BID 09/11/16 09/11/16 Unknown History 500 Softgel] Potassium Chloride [K-Tab ER] 1 tab PO QDAY 09/11/16 09/11/16 Unknown History Warfarin Sodium [Coumadin] 4 mg PO QPM 09/11/16 09/11/16 Unknown History Ciprofloxacin HCl [Cipro] 500 mg PO BID #14 tablet 05/24/17 Unknown Rx Ascorbic Acid [Vitamin C] 500 mg PO BID 02/04/20 02/14/20 Unknown History Dextran 70/Hypromellose 1 each OP DAILY 02/04/20 02/14/20 Unknown History [Artificial Tears] Ferrous Sulfate [Feosol 325 MG tab] 325 mg PO BID 02/04/20 02/14/20 Unknown History Mirtazapine 7.5 mg PO QHS 02/04/20 02/14/20 Unknown History Pregabalin [Lyrica] 100 mg PO BID 02/04/20 02/14/20 Unknown History Protein Supplement [Promod] 30 ml PO TID 02/04/20 02/14/20 Unknown History Warfarin [Coumadin] 5 mg PO QDAY 02/04/20 02/14/20 Unknown History fentaNYL [Fentanyl] 1 each TD DAILY 02/04/20 02/14/20 Unknown History Pantoprazole [Protonix TAB] 40 mg PO BIDAC #60 tablet 02/18/20 Unknown Rx Vancomycin 125 mg PO Q6HR 10 Days 02/18/20 Unknown Rx Cefepime 1 gm IV Q24H 7 Days vial 02/23/21 Unknown Rx Active Meds: Active Medications Acetaminophen (Acetaminophen 650 Mg Rect Supp) 650 mg AL Q6H PRN PRN Reason: Pain MILD(1-3)/Fever >100.5/CHIU Fentanyl (Fentanyl 100 Mcg/2 Ml Inj) 50 mcg IV Q10MIN PRN PRN Reason: ANALGESIA Last Admin: 11/13/21 10:49 Dose: 50 mcg Pantoprazole Sodium 80 mg/ (Sodium Chloride) 100 mls @ 10 mls/hr IV DIRECT YE Last Admin: 11/13/21 09:21 Dose: 8 mg/hr, 10 mls/hr NORepinephrine/NS 8 MG-250 ML (Norepinephrine/Ns 8 Mg-250 Ml (Double Conc)) 8 mg in 250 mls @ 3.75 mls/hr IV TITRATE YE; Protocol Last Titration: 11/13/21 19:58 Dose: Infused Propofol (Diprivan 10 Mg/Ml) 1,000 mg in 100 mls @ 2.041 mls/hr IV TITR YE; Pr otocol Last Titration: 11/13/21 13:55 Dose: 20 mcg/kg/min, 8.165 mls/hr Fentanyl Citrate (Fentanyl Drip Premix) 2,000 mcg in 100 mls @ 3.402 mls/hr IV TITR YE; Protocol Last Admin: 11/13/21 18:00 Dose: 3 mcg/kg/hr, 10.206 mls/hr Morphine Sulfate (Morphine 2 Mg/1 Ml Inj) 2 mg IV Q4H PRN PRN Reason: Pain, Moderate (4-6) Sodium Chloride (Sodium Chloride 0.9% 10 Ml Flush Syringe) 10 ml IV PRN PRN PRN Reason: LINE FLUSH Sodium Chloride (Sodium Chloride 0.9% 10 Ml Flush Syringe) 10 ml IV BID YE Exam - Constitutional Vitals: Temp Pulse Resp BP Pulse Ox 99.4 F 126 H 16 86/58 100 11/13/21 20:40 11/13/21 19:45 11/13/21 19:45 11/13/21 19:45 11/13/21 19:45 General appearance: Present: severe distress, well-nourished - EENT Eyes: Present: PERRL ENT: hearing intact, clear oral mucosa - Neck Neck: Present: supple, normal ROM - Respiratory Respiratory effort: normal Respiratory: bilateral: CTA - Cardiovascular Heart rate: 78 Rhythm: regular Heart Sounds: Present: S1 & S2. Absent: rub, click - Extremities Extremities: pulses symmetrical, No edema Peripheral Pulses: within normal limits - Abdominal General gastrointestinal: Present: soft, non-tender, non-distended, normal bowel sounds Male genitourinary: Present: normal - Integumentary Integumentary: Present: clear, warm, dry - Musculoskeletal Musculoskeletal: generalized weakness - Psychiatric Psychiatric: other (Decreased responsiveness) - Neurologic Neurologic: moves all extremities, other (Contractures of both lower extremities) - Allied Health Allied health notes reviewed: nursing, case management HEART Score - HEART Score Troponin: Troponin T 0.050 ng/mL (0.00-0.029) H 11/13/21 11:33 Results - Labs CBC & Chem 7: 11/14/21 05:30 11/14/21 05:30 Labs: Laboratory Last Values WBC 19.5 K/mm3 (4.5-11.0) H 11/13/21 09:03 RBC 2.74 M/mm3 (3.65-5.03) L 11/13/21 09:03 Hgb 6.2 gm/dl (11.8-15.2) L 11/13/21 09:03 Hct 20.0 % (35.5-45.6) L 11/13/21 09:03 MCV 73 fl (84-94) L 11/13/21 09:03 MCH 23 pg (28-32) L 11/13/21 09:03 MCHC 31 % (32-34) L 11/13/21 09:03 RDW 20.9 % (13.2-15.2) H 11/13/21 09:03 Plt Count 656 K/mm3 (140-440) H 11/13/21 09:03 Add Manual Diff Complete 11/13/21 09:03 Total Counted 100 11/13/21 09:03 Seg Neutrophils % [place] [employer] 11/13/21 09:03 Seg Neuts % (Manual) 97.0 % (40.0-70.0) H 11/13/21 09:03 Band Neutrophils % 0 % 11/13/21 09:03 Lymphocytes % (Manual) 1.0 % (13.4-35.0) L 11/13/21 09:03 Reactive Lymphs % (Man) 0 % 11/13/21 09:03 Monocytes % (Manual) 2.0 % (0.0-7.3) 11/13/21 09:03 Eosinophils % (Manual) 0 % (0.0-4.3) 11/13/21 09:03 Basophils % (Manual) 0 % (0.0-1.8) 11/13/21 09:03 Metamyelocytes % 0 % 11/13/21 09:03 Myelocytes % 0 % 11/13/21 09:03 Promyelocytes % 0 % 11/13/21 09:03 Blast Cells % 0 % 11/13/21 09:03 Nucleated RBC % Not Reportable 11/13/21 09:03 Seg Neutrophils # Man 18.9 K/mm3 (1.8-7.7) H 11/13/21 09:03 Band Neutrophils # 0.0 K/mm3 11/13/21 09:03 Lymphocytes # (Manual) 0.2 K/mm3 (1.2-5.4) L 11/13/21 09:03 Abs React Lymphs (Man) 0.0 K/mm3 11/13/21 09:03 Monocytes # (Manual) 0.4 K/mm3 (0.0-0.8) 11/13/21 09:03 Eosinophils # (Manual) 0.0 K/mm3 (0.0-0.4) 11/13/21 09:03 Basophils # (Manual) 0.0 K/mm3 (0.0-0.1) 11/13/21 09:03 Metamyelocytes # 0.0 K/mm3 11/13/21 09:03 Myelocytes # 0.0 K/mm3 11/13/21 09:03 Promyelocytes # 0.0 K/mm3 11/13/21 09:03 Blast Cells # 0.0 K/mm3 11/13/21 09:03 WBC Morphology Not Reportable 11/13/21 09:03 Hypersegmented Neuts Not Reportable 11/13/21 09:03 Hyposegmented Neuts Not Reportable 11/13/21 09:03 Hypogranular Neuts Not Reportable 11/13/21 09:03 Smudge Cells Not Reportable 11/13/21 09:03 Toxic Granulation Not Reportable 11/13/21 09:03 Toxic Vacuolation Not Reportable 11/13/21 09:03 Dohle Bodies Not Reportable 11/13/21 09:03 Pelger-Huet Anomaly Not Reportable 11/13/21 09:03 Agata Rods Not Reportable 11/13/21 09:03 Platelet Estimate Consistent w auto 11/13/21 09:03 Clumped Platelets Not Reportable 11/13/21 09:03 Plt Clumps, EDTA Not Reportable 11/13/21 09:03 Large Platelets Not Reportable 11/13/21 09:03 Giant Platelets Not Reportable 11/13/21 09:03 Platelet Satelliting Not Reportable 11/13/21 09:03 Plt Morphology Comment Not Reportable 11/13/21 09:03 RBC Morphology Not Reportable 11/13/21 09:03 Dimorphic RBCs Not Reportable 11/13/21 09:03 Polychromasia Few 11/13/21 09:03 Hypochromasia 1+ 11/13/21 09:03 Poikilocytosis Not Reportable 11/13/21 09:03 Anisocytosis 2+ 11/13/21 09:03 Microcytosis Not Reportable 11/13/21 09:03 Macrocytosis Not Reportable 11/13/21 09:03 Spherocytes Not Reportable 11/13/21 09:03 Pappenheimer Bodies Not Reportable 11/13/21 09:03 Sickle Cells Not Reportable 11/13/21 09:03 Target Cells Not Reportable 11/13/21 09:03 Tear Drop Cells Not Reportable 11/13/21 09:03 Ovalocytes Not Reportable 11/13/21 09:03 Helmet Cells Not Reportable 11/13/21 09:03 [place] Bodies Not Reportable 11/13/21 09:03 [place] Rings Not Reportable 11/13/21 09:03 [place] Cells Not Reportable 11/13/21 09:03 Bite Cells Not Reportable 11/13/21 09:03 Crenated Cell Not Reportable 11/13/21 09:03 Elliptocytes Not Reportable 11/13/21 09:03 Acanthocytes (Spur) Not Reportable 11/13/21 09:03 Rouleaux Not Reportable 11/13/21 09:03 Hemoglobin C Crystals Not Reportable 11/13/21 09:03 Schistocytes Not Reportable 11/13/21 09:03 Malaria parasites Not Reportable 11/13/21 09:03 [place] Bodies Not Reportable 11/13/21 09:03 Hem Pathologist Commnt No 11/13/21 09:03 PT 16.9 Sec. (12.2-14.9) H 11/13/21 09:03 INR 1.20 (0.87-1.13) H 11/13/21 09:03 APTT 32.0 Sec. (24.2-36.6) 11/13/21 09:03 ABG pH 7.443 pH Units (7.350-7.450) 11/13/21 10:22 ABG pCO2 37.8 mm Hg 11/13/21 10:22 ABG pO2 284.1 mm Hg (80.0-90.0) H 11/13/21 10:22 ABG HCO3 25.3 mmol/L (20.0-26.0) 11/13/21 10:22 ABG O2 Saturation 99.5 % (95.0-99.0) H 11/13/21 10:22 ABG O2 Content 9.3 (0.0-44) 11/13/21 10:22 ABG Base Excess 1.1 mmol/L (-2.0-3.0) 11/13/21 10:22 ABG Hemoglobin 6.2 gm/dl (14.0-18.0) L 11/13/21 10:22 ABG Carboxyhemoglobin 1.5 % (0.0-5.0) 11/13/21 10:22 ABG Methemoglobin 0.5 % (0.0-1.5) 11/13/21 10:22 Oxyhemoglobin 97.5 % (95.0-99.0) 11/13/21 10:22 FiO2 100 % 11/13/21 10:22 Sodium 139 mmol/L (137-145) 11/13/21 09:03 Potassium 4.2 mmol/L (3.6-5.0) 11/13/21 09:03 Chloride 100.6 mmol/L (98-107) 11/13/21 09:03 Carbon Dioxide 21 mmol/L (22-30) L 11/13/21 09:03 Anion Gap 22 mmol/L 11/13/21 09:03 BUN 45 mg/dL (9-20) H 11/13/21 09:03 Creatinine 0.7 mg/dL (0.8-1.3) L 11/13/21 09:03 Estimated GFR > 60 ml/min 11/13/21 09:03 BUN/Creatinine Ratio 64 % 11/13/21 09:03 Glucose 173 mg/dL (75-100) H 11/13/21 09:03 Calcium 8.5 mg/dL (8.4-10.2) 11/13/21 09:03 Total Bilirubin 0.20 mg/dL (0.1-1.2) 11/13/21 09:03 AST 9 units/L (5-40) 11/13/21 09:03 ALT 10 units/L (7-56) 11/13/21 09:03 Alkaline Phosphatase 84 units/L (35-129) 11/13/21 09:03 Troponin T 0.050 ng/mL (0.00-0.029) H 11/13/21 11:33 NT-Pro-B Natriuret Pep 1118 pg/mL (0-900) H 11/13/21 09:03 Total Protein 7.1 g/dL (6.3-8.2) 11/13/21 09:03 Albumin 2.5 g/dL (3.9-5) L 11/13/21 09:03 Albumin/Globulin Ratio 0.5 % 11/13/21 09:03 Triglycerides 96 mg/dL (2-149) 11/13/21 11:33 Cholesterol 115 mg/dL (50-199) 11/13/21 11:33 LDL Cholesterol Direct 61 mg/dL (50-130) 11/13/21 11:33 HDL Cholesterol 28 mg/dL (40-59) L 11/13/21 11:33 Cholesterol/HDL Ratio 4.10 % 11/13/21 11:33 TSH 1.680 mlU/mL (0.270-4.200) 11/13/21 09:03 Free T4 1.27 ng/dL (0.76-1.46) 11/13/21 09:03 Urine Color Yellow (Yellow) 11/13/21 11:12 Urine Turbidity Cloudy (Clear) 11/13/21 11:12 Urine pH 6.0 (5.0-7.0) 11/13/21 11:12 Ur Specific [place] 1.015 (1.003-1.030) 11/13/21 11:12 Urine Protein 100 mg/dl mg/dL (Negative) 11/13/21 11:12 Urine Glucose (UA) Negative mg/dL (Negative) 11/13/21 11:12 Urine Ketones 15 mg/dL (Negative) 11/13/21 11:12 Urine Blood Large (Negative) A 11/13/21 11:12 Urine Nitrite Negative (Negative) 11/13/21 11:12 Urine Bilirubin Negative (Negative) 11/13/21 11:12 Urine Urobilinogen 0.0 mg/dL (<2.0) 11/13/21 11:12 Ur Leukocyte Esterase Moderate (Negative) 11/13/21 11:12 Urine WBC (Auto) > 182.0 /HPF (0.0-6.0) H 11/13/21 11:12 Urine RBC (Auto) > 182.0 /HPF (0.0-6.0) 11/13/21 11:12 Urine Bacteria (Auto) 2+ /HPF (Negative) 11/13/21 11:12 Ur Yeast w [place] Few /HPF 11/13/21 11:12 Urine Yeast (Budding) Few /HPF 11/13/21 11:12 Blood Type A POSITIVE 11/13/21 09:08 Antibody Screen Negative 11/13/21 09:08 Crossmatch See Detail 11/13/21 09:08 Short CBC 11/13/21 11/14/21 Range/Units 09:03 05:30 WBC 19.5 H 26.0 H (4.5-11.0) K/mm3 Hgb 6.2 L 6.4 L (11.8-15.2) gm/dl Hct 20.0 L 21.2 L (35.5-45.6) % Plt Count 656 H 535 H (140-440) K/mm3 BMP 11/13/21 11/14/21 09:03 05:30 Sodium 139 143 Potassium 4.2 3.9 Chloride 100.6 109.3 H Carbon Dioxide 21 L 20 L BUN 45 H 35 H Creatinine 0.7 L 0.5 L Glucose 173 H 149 H Calcium 8.5 7.9 L Cardiac Enzymes 11/13/21 Range/Units 11:33 Troponin T 0.050 H (0.00-0.029) ng/mL Liver Function 11/13/21 11/14/21 Range/Units 09:03 05:30 Total Bilirubin 0.20 0.30 (0.1-1.2) mg/dL AST 9 14 (5-40) units/L ALT 10 9 (7-56) units/L Alkaline Phosphatase 84 80 (35-129) units/L Albumin 2.5 L 2.1 L (3.9-5) g/dL Urine 11/13/21 Range/Units 11:12 Urine Color Yellow (Yellow) Urine pH 6.0 (5.0-7.0) Ur Specific [place] 1.015 (1.003-1.030) Urine Protein 100 mg/dl (Negative) mg/dL Urine Glucose (UA) Negative (Negative) mg/dL - Imaging and Cardiology Imaging and Cardiology: Chest x-ray There is moderate left pleural effusion with left basilar atelectasis No appreciable pneumothorax Abdominal x-ray NG tube in place constipation Probable rectal fecal impaction There is mild gaseous distention of small bowel diffusely Assessment and Plan Assessment and plan: Critical care statement The high probability OF a clinically significant sudden or life-threatening deterioration of the cardiorespiratory system and endocrine system required my full and direct attention, intervention and postoperative management. The aggregate critical care time was 40 minutes. The time is in addition to time spent performing reported procedures but includes the followin: Data review and interpretation 2: Patient assessment and monitoring of vital signs 3: Documentation 4:: Medication orders and management Advance Directives: Yes (Full code) VTE prophylaxis?: Chemical Plan of care discussed with patient/family: Yes - Patient Problems (1) Sepsis Current Visit: Yes Status: Acute Plan to address problem: Patient is septic from his urinary tract infection Patient initiated on cefepime and vancomycin ID consult requested (2) Acute respiratory failure with hypoxia Current Visit: Yes Status: Acute Plan to address problem: Severe hypoxemia Patient intubated Vent management 12 protocol Forest Ranger Technician consult requested (3) Acute metabolic encephalopathy Current Visit: Yes Status: Acute Plan to address problem: Multifactorial secondary to sepsis and respiratory failure Management of sepsis and hypoxia (4) Symptomatic anemia Current Visit: Yes Status: Acute Plan to address problem: Transfuse 1 to 2 units of blood Nutritional Iron studies and B12 and folic acid (5) Paraplegia Current Visit: Yes Status: Chronic Plan to address problem: Supportive care Prevent decubitus ulcers (6) Malnutrition Current Visit: Yes Status: Chronic Qualifiers: Protein-calorie malnutrition severity: moderate Plan to address problem: Dietary consult requested for tube feeding and dietary supplementation (7) DVT prophylaxis Current Visit: Yes Status: Acute Plan to address problem: On heparin and GI prophylaxis (8) Advance care planning Current Visit: Yes Status: Acute Plan to address problem: Could not be done because of the patient's condition
[2021-11-13] MEDS ORDERED: VANCOMYCIN PHARMACY TO DOSE IV SCH (22:00)
[2021-11-13] MEDS: SODIUM CHLORIDE 0.9% 1000 ML 1,000 ML IV SCH (22:06)
[2021-11-13] MEDS: CEFEPIME/NS 2 GM/100 ML 2 GM/100 ML BAG IV SCH (22:41)
[2021-11-13] MEDS: FAMOTIDINE 20 MG/2 ML INJ IV SCH (22:41)
[2021-11-13] MEDS: methylPREDNISolone Sod Succinate 40 MG/1 ML INJ IV SCH (22:41)
[2021-11-14] MEDS: NORepinephrine/NS 8 MG-250 ML 8 MG/250 ML INFUS..BTL IV SCH ×2 (02:38→07:29)
[2021-11-14 04:04] LABS: ABG HCO3 20.7 mmol/L (20.0-26.0); ABG Methemoglobin 0.6 % (0.0-1.5); ABG Oxygen Saturation 98.1 % (95.0-99.0); ABG PCO2 35.5 mm Hg; ABG PH 7.384 pH Units (7.350-7.450); ABG PO2 112.8 mm Hg (80.0-90.0)
[2021-11-14] MEDS: fentaNYL DRIP Premix 2,000 MCG/100 ML BAG IV SCH (05:01)
[2021-11-14] MEDS: methylPREDNISolone Sod Succinate 40 MG/1 ML INJ IV SCH (05:10)
[2021-11-14] MEDS: CEFEPIME/NS 2 GM/100 ML 2 GM/100 ML BAG IV SCH ×3 (05:10→21:11)
[2021-11-14 05:55] LABS: Hematocrit 21.2 % (35.5-45.6); Hemoglobin 6.4 gm/dl (11.8-15.2); Mean Corpuscular HGB Conc 30 % (32-34); Mean Corpuscular Volume 76 fl (84-94); Platelet Count 535 K/mm3 (140-440); Red Blood Count 2.79 M/mm3 (3.65-5.03)
[2021-11-14 05:57] LABS: Red Cell Distribution Width 21.1 % (13.2-15.2)
[2021-11-14] MEDS: VANCOMYCIN/NS 1 GM/250 ML 1 GM/250 ML BAG IV SCH ×2 (06:06→18:05)
[2021-11-14 06:10] LABS: Alanine Aminotransferase 9 units/L (7-56); Albumin 2.1 g/dL (3.9-5); Blood Urea Nitrogen 35 mg/dL (9-20); Calcium 7.9 mg/dL (8.4-10.2); Hemolysis Index 16
[2021-11-14 06:11] LABS: BUN/Creatinine Ratio 70
[2021-11-14 06:39] LABS: Total Cells Counted 100
[2021-11-14 06:40] LABS: Anisocytosis 1+; Basophils % (Manual) 0 % (0.0-1.8); Eosinophils % (Manual) 0 % (0.0-4.3); Hypochromasia 1+; Monocytes % (Manual) 0 % (0.0-7.3)
[2021-11-14 06:41] LABS: Ovalocytes Few; Platelet Estimate Consistent w Auto
[2021-11-14] MEDS: PANTOPRAZOLE 80 MG in SODIUM CHLORIDE 0.9% 100 ML IV SCH (07:49)
[2021-11-14] MEDS: SODIUM CHLORIDE 0.9% 1000 ML 1,000 ML IV SCH ×2 (07:53→18:08)
[2021-11-14] MEDS ORDERED: SODIUM CHLORIDE 0.9% 500 ML 500 ML IV NR (08:42)
[2021-11-14] MEDS: IPRATROPIUM/ALBUTEROL SULFATE 3 ML AMPUL.NEB IH SCH ×4 (08:46→21:45)
[2021-11-14] MEDS ORDERED: LACTATED RINGERS 1,000 ML IV ONE (09:00)
[2021-11-14] MEDS ORDERED: VASOPRESSIN 20 UNIT in SODIUM CHLORIDE 0.9% 100 ML IV SCH (09:00)
--- NOTE | 2021-11-14 09:37 | Electrocardiograph Report ---
[facility], [place] Test Date: 2021-11-13 Test Time: 08:37:04 Pat Name: AKIN MAO Department: Room: A262 1 Gender: M Housekeeping Department Worker: DEEPAK : 1955 Requested By: ZEINAB STEVENS Order Number: [id number] Reading MD: Jorge A Wylie Measurements Intervals [place] Rate: 135 P: 69 OR: 146 QRS: 25 QRSD: 68 T: 194 QT: 283 QTc: 425 Interpretive Statements Sinus tachycardia Low voltage, extremity leads Nonspecific repol abnormality, diffuse leads Compared to ECG 02/23/2021 07:26:28 Low QRS voltage now present Early repolarization now present T-wave abnormality no longer present Prolonged QT interval no longer present Electronically Signed On 11-14-2021 9:37:10 EDT by Jorge A Wylie
[2021-11-14] MEDS: DOCUSATE SODIUM 100 MG/10 ML ORAL LIQD FEEDTUBE SCH ×2 (10:42→21:11)
[2021-11-14] MEDS: SENNOSIDES 8.6 MG TAB FEEDTUBE SCH ×2 (10:42→21:11)
--- NOTE | 2021-11-14 12:08 | Consultation ---
History of Present Illness Consult date: 11/14/21 Requesting physician: ZEINAB STEVENS Reason for consult: hypoxemia, other (sepsis) History of present illness: 66 y/o male paraplegic admitted from senior living with sepsis, acute respiratory failure, hypotension and now possible gi bleed. Patient currently intubated but off sedation. Awake and alert and following commands. Minimal vent settings. HgB is 6. Vitals are stable Past History Past Medical History: other (unable to obtain) Past Surgical History: Other (unable to obtain) Social history: other (unable to obtain) Family history: other (obtain) Medications and Allergies Allergies Allergy/AdvReac Type Severity Reaction Status Date / Time carbamazepine [From Tegretol] Allergy Itching Verified 08/14/21 06:58 ketorolac tromethamine Allergy Itching Verified 08/14/21 06:58 [From Toradol] tramadol Allergy Itching Verified 08/14/21 06:58 hydromorphone AdvReac Unknown Verified 08/14/21 06:58 ketorolac [From Toradol] AdvReac Unknown Verified 08/14/21 06:58 meperidine AdvReac Unknown Verified 08/14/21 06:58 Home Medications Medication Instructions Recorded Confirmed Last Taken Type Albuterol Mdi (or & Nicu Only) 2 puff IH QID PRN 12/20/13 09/10/16 04/14/15 History [ProAir HFA Inhaler] polyethylene glycoL 3350 [Miralax 17 gm PO QDAY 12/22/14 09/11/16 04/14/15 History 3350] Ascorbic Acid [Vitamin C] 500 mg PO QDAY 05/04/15 09/11/16 Unknown History Multivit with Iron,Minerals 1 each PO QAM 05/04/15 09/11/16 Unknown History [Spectravite Senior] Sennosides/Docusate Sodium 2 each PO QHS 05/04/15 09/11/16 Unknown History [Senna-S Tablet] Pregabalin [Lyrica] 100 mg PO BID 01/15/16 09/11/16 Unknown History Protein Supplement [Promod] 30 ml PO TID 01/15/16 09/11/16 Unknown History carisoprodoL [Soma] 350 mg PO TID PRN 01/15/16 09/11/16 Unknown History guaiFENesin [Guaifenesin ER] 1,200 mg PO Q12H PRN 01/15/16 09/11/16 Unknown History Acetaminophen [Acetaminophen TAB] 650 mg PO Q4H PRN 09/10/16 09/10/16 Unknown History Baclofen 20 mg PO TID PRN 09/10/16 09/10/16 Unknown History Diazepam [Valium] 10 mg PO Q6H PRN 09/11/16 09/11/16 Unknown History Furosemide [Lasix TAB] 1 tab PO BID PRN 09/11/16 09/11/16 Unknown History Mirtazapine [Remeron] 15 mg PO QHS 09/11/16 09/11/16 Unknown History [place]-3/Dha/Epa/Fish Oil [[place] 3 1,000 mg PO BID 09/11/16 09/11/16 Unknown History 500 Softgel] Potassium Chloride [K-Tab ER] 1 tab PO QDAY 09/11/16 09/11/16 Unknown History Warfarin Sodium [Coumadin] 4 mg PO QPM 09/11/16 09/11/16 Unknown History Ciprofloxacin HCl [Cipro] 500 mg PO BID #14 tablet 05/24/17 Unknown Rx Ascorbic Acid [Vitamin C] 500 mg PO BID 02/04/20 02/14/20 Unknown History Dextran 70/Hypromellose 1 each OP DAILY 02/04/20 02/14/20 Unknown History [Artificial Tears] Ferrous Sulfate [Feosol 325 MG tab] 325 mg PO BID 02/04/20 02/14/20 Unknown History Mirtazapine 7.5 mg PO QHS 02/04/20 02/14/20 Unknown History Pregabalin [Lyrica] 100 mg PO BID 02/04/20 02/14/20 Unknown History Protein Supplement [Promod] 30 ml PO TID 02/04/20 02/14/20 Unknown History Warfarin [Coumadin] 5 mg PO QDAY 02/04/20 02/14/20 Unknown History fentaNYL [Fentanyl] 1 each TD DAILY 02/04/20 02/14/20 Unknown History Pantoprazole [Protonix TAB] 40 mg PO BIDAC #60 tablet 02/18/20 Unknown Rx Vancomycin 125 mg PO Q6HR 10 Days 02/18/20 Unknown Rx Cefepime 1 gm IV Q24H 7 Days vial 02/23/21 Unknown Rx Active Meds: Active Medications Acetaminophen (Acetaminophen 650 Mg Rect Supp) 650 mg ME Q6H PRN PRN Reason: Pain MILD(1-3)/Fever >100.5/CHIU Acetaminophen (Acetaminophen 325 Mg Tab) 650 mg PO Q4H PRN PRN Reason: Pain MILD(1-3)/Fever >100.5/CHIU Albuterol/Ipratropium (Ipratropium/Albuterol Sulfate 3 Ml Ampul.Neb) 1 ampul IH QIDRT [facility] Last Admin: 11/14/21 08:46 Dose: 1 ampul Bisacodyl (Bisacodyl 10 Mg Rect Supp) 10 mg ME ONCE@1030 [facility] Stop: 11/14/21 14:30 Last Admin: 11/14/21 10:42 Dose: 10 mg Docusate Sodium (Docusate Sodium 100 Mg/10 Ml Oral Liqd) 100 mg FEEDTUBE BID YE Last Admin: 11/14/21 10:42 Dose: 100 mg Fentanyl (Fentanyl 100 Mcg/2 Ml Inj) 50 mcg IV Q10MIN PRN PRN Reason: ANALGESIA Last Admin: 11/13/21 10:49 Dose: 50 mcg Pantoprazole Sodium 80 mg/ (Sodium Chloride) 100 mls @ 10 mls/hr IV DIRECT YE Last Admin: 11/14/21 07:49 Dose: 8 mg/hr, 10 mls/hr NORepinephrine/NS 8 MG-250 ML (Norepinephrine/Ns 8 Mg-250 Ml (Double Conc)) 8 mg in 250 mls @ 3.75 mls/hr IV TITRATE YE; Protocol Last Titration: 11/14/21 10:55 Dose: 4 mcg/min, 7.5 mls/hr Propofol (Diprivan 10 Mg/Ml) 1,000 mg in 100 mls @ 2.041 mls/hr IV TITR YE; Protocol Last Titration: 11/14/21 07:31 Dose: 0 mcg/kg/min, 0 mls/hr Fentanyl Citrate (Fentanyl Drip Premix) 2,000 mcg in 100 mls @ 3.402 mls/hr IV TITR YE; Protocol Last Titration: 11/14/21 07:57 Dose: 0 mcg/kg/hr, 0 mls/hr Sodium Chloride (Nacl 0.9% 1000 Ml) 1,000 mls @ 125 mls/hr IV DIRECT YE Last Admin: 11/14/21 07:53 Dose: 125 mls/hr Cefepime HCl (Cefepime/Ns 2 Gm/100 Ml) 2 gm in 100 mls @ 200 mls/hr IV Q8H [facility]; Protocol Last Infusion: 11/14/21 07:49 Dose: Infused Vancomycin HCl (Vancomycin/Ns 1 Gm/250 Ml) 1 gm in 250 mls @ 250 mls/hr IV Q12H [facility] Last Infusion: 11/14/21 07:49 Dose: Infused Vasopressin 20 unit/ Sodium (Chloride) 101 mls @ 9.09 mls/hr IV TITR [facility]; Protocol Sodium Chloride (Nacl 0.9% 500 Ml) 500 mls @ 0 mls/hr IV ONCE NR Stop: 11/14/21 23:59 Metoclopramide HCl (Metoclopramide 10 Mg/2 Ml Inj) 10 mg IV Q6H PRN PRN Reason: Nausea And Vomiting Morphine Sulfate (Morphine 2 Mg/1 Ml Inj) 2 mg IV Q4H PRN PRN Reason: Pain, Moderate (4-6) Ondansetron HCl (Ondansetron 4 Mg/2 Ml Inj) 4 mg IV Q3H PRN PRN Reason: Nausea And Vomiting Senna (Sennosides 8.6 Mg Tab) 17.2 mg FEEDTUBE BID [facility] Last Admin: 11/14/21 10:42 Dose: 17.2 mg Sodium Chloride (Sodium Chloride 0.9% 10 Ml Flush Syringe) 10 ml IV BID [facility] Last Admin: 11/13/21 22:42 Dose: 10 ml Sodium Chloride (Sodium Chloride 0.9% 10 Ml Flush Syringe) 10 ml IV PRN PRN PRN Reason: LINE FLUSH Review of Systems ROS unobtainable: due to endotracheal tube Physical Examination Vital signs: Vital Signs Pulse Resp Pulse Ox 136 H 48 H 89 11/13/21 08:40 11/13/21 08:40 11/13/21 08:40 General appearance: no acute distress, alert ENT: other (orally intubated, not sedated) Neck: supple Effort: normal Ascultation: Bilateral: clear Results - Laboratory Findings CBC and BMP: 11/14/21 05:30 11/14/21 05:30 ABG ABG pH 7.384 pH Units (7.350-7.450) 11/14/21 03:45 ABG pCO2 35.5 mm Hg 11/14/21 03:45 ABG pO2 112.8 mm Hg (80.0-90.0) H 11/14/21 03:45 ABG O2 Saturation 98.1 % (95.0-99.0) 11/14/21 03:45 PT/INR, D-dimer PT 16.9 Sec. (12.2-14.9) H 11/13/21 09:03 INR 1.20 (0.87-1.13) H 11/13/21 09:03 Abnormal lab findings: Abnormal Labs 11/13/21 11/13/21 11/13/21 09:03 09:03 09:03 WBC 19.5 H RBC 2.74 L Hgb 6.2 L Hct 20.0 L MCV 73 L MCH 23 L MCHC 31 L RDW 20.9 H Plt Count 656 H Seg Neuts % (Manual) 97.0 H Lymphocytes % (Manual) 1.0 L Nucleated RBC % Seg Neutrophils # Man 18.9 H Lymphocytes # (Manual) 0.2 L PT 16.9 H INR 1.20 H ABG pO2 ABG O2 Saturation ABG Base Excess ABG Hemoglobin Chloride Carbon Dioxide 21 L BUN 45 H Creatinine 0.7 L Glucose 173 H Calcium Troponin T NT-Pro-B Natriuret Pep 1118 H Total Protein Albumin 2.5 L HDL Cholesterol Urine Blood Urine WBC (Auto) Crossmatch 11/13/21 11/13/21 11/13/21 09:08 10:22 11:12 WBC RBC Hgb Hct MCV MCH MCHC RDW Plt Count Seg Neuts % (Manual) Lymphocytes % (Manual) Nucleated RBC % Seg Neutrophils # Man Lymphocytes # (Manual) PT INR ABG pO2 284.1 H ABG O2 Saturation 99.5 H ABG Base Excess ABG Hemoglobin 6.2 L Chloride Carbon Dioxide BUN Creatinine Glucose Calcium Troponin T NT-Pro-B Natriuret Pep Total Protein Albumin HDL Cholesterol Urine Blood Large A Urine WBC (Auto) > 182.0 H Crossmatch See Detail 11/13/21 11/14/21 11/14/21 11:33 03:45 05:30 WBC 26.0 H RBC 2.79 L Hgb 6.4 L Hct 21.2 L MCV 76 L MCH 23 L MCHC 30 L RDW 21.1 H Plt Count 535 H Seg Neuts % (Manual) 100.0 H Lymphocytes % (Manual) 0 L Nucleated RBC % 1.0 H Seg Neutrophils # Man 26.0 H Lymphocytes # (Manual) 0.0 L PT INR ABG pO2 112.8 H ABG O2 Saturation ABG Base Excess -4.0 L ABG Hemoglobin 6.6 L Chloride Carbon Dioxide BUN Creatinine Glucose Calcium Troponin T 0.050 H NT-Pro-B Natriuret Pep Total Protein Albumin HDL Cholesterol 28 L Urine Blood Urine WBC (Auto) Crossmatch 11/14/21 05:30 WBC RBC Hgb Hct MCV MCH MCHC RDW Plt Count Seg Neuts % (Manual) Lymphocytes % (Manual) Nucleated RBC % Seg Neutrophils # Man Lymphocytes # (Manual) PT INR ABG pO2 ABG O2 Saturation ABG Base Excess ABG Hemoglobin Chloride 109.3 H Carbon Dioxide 20 L BUN 35 H Creatinine 0.5 L Glucose 149 H Calcium 7.9 L Troponin T NT-Pro-B Natriuret Pep Total Protein 6.2 L Albumin 2.1 L HDL Cholesterol Urine Blood Urine WBC (Auto) Crossmatch - Diagnostic Findings Chest x-ray: image reviewed Assessment and Plan 66 y/o male with acute respiratory failure secondary to sepsis, possibly from infected wounds vs aspiration 1. Extubate today 2. Continue broad spec abx 3. Can likely stop steroids 4. Wound care consult for wounds 5. GI consult, bowel movement given abdominal imaging 6. Guarded prognosis. CCT 31 minutes.
--- NOTE | 2021-11-14 16:22 | Progress Note ---
<CRUZKENDALL LorenaBen - Last Filed: 11/14/21 16:30> Assessment and Plan Assessment and plan: This is a 66-year-old female with paraplegia, HTN, DM, DVT s/p [place] filter, GERD, asthma, dementia, MS, depression, FIT, chronic constipation and dysphagia admitted with sepsis, symptomatic anemia and acute hypoxic respiratory failure Neuro:h/o dementia, MS, paraplegia, depression -Sedation stopped by day RN -Reorientation as needed -Maintain sleep-wake cycle -Aspiration precautions -As needed analgesia -Hold home baclofen, soma, diazepam, fentanyl patch, remeron, lyrica for now -likely restart in AM Cardiac: Hypotension, h/o HTN -Cardiology consulted, appreciate recommendations -Blood pressure monitoring per protocol -Vasopressor support with levophed, vaso if needed -MAP goal greater than 65 -02/22/2021 echocardiogram shows LVEF 50% Respiratory: Acute hypoxic respiratory failure, h/o asthma -CCM consulted, appreciate recommendations -Intubated on 11/13 with 7.5 OETT at 23 at the lips -A.m. vent settings: AC Rate 12, TV 500, Peep 6, 35% FiO2 -See RT notes for titration -extubated 11/14 -A.m. ABG and CXR noted -VAP bundle -SPO2 monitoring GI: GIB, h/o dysphagia, GERD, chronic constipation, Failure to thrive -Per RN note patient had projectile vomiting in care home per EMS report -GI consulted, appreciate recommendations -s/p Protonix gtt -Restarted on lansoprazole -KUB shows severe constipation -NGT -Gastric aspirate occult positive -BR: Senokot S, Colace, MiraLAX, Dulcolax suppository -Patient was digitally disimpacted by GI today who also recommended GoLytely : h/o suprapubic catheter -Monitor intake and output -Renally dose medications -Avoid nephrotoxic medications -Trend BMP ID: Septic shock -Presented with leukocytosis, hypotension, dirty UA, multiple decubitus ulcers scattered on body -S/p 2 L normal saline bolus in the ED, 1 L LR bolus in the ICU -Antibiotic therapy with cefepime and vancomycin -f/u blood culture and urine culture -UA noted -Monitor WBC and temperature curve Endo: h/o DM -Avoid hypoglycemia -SSI -Accu-Cheks q. every 6 Heme: Symptomatic anemia, r/o DVT s/p [place] filter -Presented with H/H of 6.2/20.0 -S/p 1 unit PRBC -H/H 6.4/21.2 -2 unit PRBC -Obtain H/H 2 hours post transfusion -Hold home warfarin -Avoid chemical anticoagulation in setting of severe anemia -q6hr H/H -Trend CBC -Transfuse hemoglobin less than 7 -SCDs to BLE while in bed The high probability of a clinically significant, sudden or life threatening deterioration of the [multi] system(s) required my full and direct attention, intervention and personal management. The aggregate critical care time was [60] minutes. This time is in addition to time spent performing reported procedures but includes the following: [x] Data Review and interpretation [x] Patient assessment and monitoring of vital signs [x] Documentation [x] Medication orders and management Disposition Plan: icu Total Time Spent with Patient (Minutes): 60 History Interval history: This is a 66 year old male who is a paraplegic, HTN, DM, DVT s/p Herlinda filter, GERD, asthma, dementia, MS, depression, UTI, Adult failure to thrive, suprapubic catheter, chronic constipation and dysphagia who presented to emergency department on 11/13 from his care home with increasing shortness of breath. In the emergency department patient received IV hydration per sepsis protocol for hypotension and tachycardia and started on Levophed and he was hypoxic and was placed in nonrebreather. Patient was intubated for respiratory distress. He was also started on antibiotics and CXR showed left pleural effusion. Work-up in the ED also showed leukocytosis and anemia with a hemoglobin of 6.2 and hematocrit of 20 and 1 unit PRBC was ordered. Patient was admitted to the hospitalist service with consults to [facility] with acute hypoxic respiratory failure, symptomatic anemia, sepsis. Hospital course to date: 11/14: H/H did not respond adequately to PRBC and we ordered to 1 unit of PRBC. Was on high-dose Levophed and vasopressin was ordered. 1 L LR bolus. Patient was started on bowel regimen, urine culture was sent. Sitter was discontinued. Patient will be on every 6 H&H and n.p.o. for now however will get meds through [facility] tube. GI was consulted who digitally disimpacted the patient at bedside. Gastric occult positive. Hospitalist Physical - Constitutional Vitals: Temp Pulse Resp BP Pulse Ox 98.4 F 115 H 19 91/58 99 11/14/21 14:37 11/14/21 15:15 11/14/21 15:15 11/14/21 15:15 11/14/21 15:15 General appearance: Present: no acute distress, cachectic - EENT Eyes: Present: PERRL, EOM intact ENT: poor dentition - Neck Neck: Present: normal ROM - Respiratory Respiratory effort: normal Respiratory: bilateral: diminished - Cardiovascular Rhythm: regular Heart Sounds: Present: S1 & S2. Absent: systolic murmur, diastolic murmur - Extremities Extremities: pulses intact, pulses symmetrical Extremity abnormal: ulceration, deformity Peripheral Pulses: within normal limits - Abdominal General gastrointestinal: soft, non-tender, non-distended, normal bowel sounds - Integumentary Integumentary: Present: dry - Psychiatric Psychiatric: other - Neurologic Neurologic: other (intact cough/gag, PERRL, no response to verbal stimuli) - Allied Health Allied health notes reviewed: nursing, RT, social work HEART Score - HEART Score Troponin: Troponin T 0.050 ng/mL (0.00-0.029) H 11/13/21 11:33 Results - Labs CBC & Chem 7: 11/14/21 05:30 11/14/21 05:30 Labs: Laboratory Last Values WBC 26.0 K/mm3 (4.5-11.0) H 11/14/21 05:30 RBC 2.79 M/mm3 (3.65-5.03) L 11/14/21 05:30 Hgb 6.4 gm/dl (11.8-15.2) L 11/14/21 05:30 Hct 21.2 % (35.5-45.6) L 11/14/21 05:30 MCV 76 fl (84-94) L 11/14/21 05:30 MCH 23 pg (28-32) L 11/14/21 05:30 MCHC 30 % (32-34) L 11/14/21 05:30 RDW 21.1 % (13.2-15.2) H 11/14/21 05:30 Plt Count 535 K/mm3 (140-440) H 11/14/21 05:30 Add Manual Diff Complete 11/14/21 05:30 Total Counted 100 11/14/21 05:30 Seg Neutrophils % Change Lead 11/14/21 05:30 Seg Neuts % (Manual) 100.0 % (40.0-70.0) H 11/14/21 05:30 Band Neutrophils % 0 % 11/14/21 05:30 Lymphocytes % (Manual) 0 % (13.4-35.0) L 11/14/21 05:30 Reactive Lymphs % (Man) 0 % 11/14/21 05:30 Monocytes % (Manual) 0 % (0.0-7.3) 11/14/21 05:30 Eosinophils % (Manual) 0 % (0.0-4.3) 11/14/21 05:30 Basophils % (Manual) 0 % (0.0-1.8) 11/14/21 05:30 Metamyelocytes % 0 % 11/14/21 05:30 Myelocytes % 0 % 11/14/21 05:30 Promyelocytes % 0 % 11/14/21 05:30 Blast Cells % 0 % 11/14/21 05:30 Nucleated RBC % 1.0 % (0.0-0.9) H 11/14/21 05:30 Seg Neutrophils # Man 26.0 K/mm3 (1.8-7.7) H 11/14/21 05:30 Band Neutrophils # 0.0 K/mm3 11/14/21 05:30 Lymphocytes # (Manual) 0.0 K/mm3 (1.2-5.4) L 11/14/21 05:30 Abs React Lymphs (Man) 0.0 K/mm3 11/14/21 05:30 Monocytes # (Manual) 0.0 K/mm3 (0.0-0.8) 11/14/21 05:30 Eosinophils # (Manual) 0.0 K/mm3 (0.0-0.4) 11/14/21 05:30 Basophils # (Manual) 0.0 K/mm3 (0.0-0.1) 11/14/21 05:30 Metamyelocytes # 0.0 K/mm3 11/14/21 05:30 Myelocytes # 0.0 K/mm3 11/14/21 05:30 Promyelocytes # 0.0 K/mm3 11/14/21 05:30 Blast Cells # 0.0 K/mm3 11/14/21 05:30 WBC Morphology Not Reportable 11/14/21 05:30 Hypersegmented Neuts Not Reportable 11/14/21 05:30 Hyposegmented Neuts Not Reportable 11/14/21 05:30 Hypogranular Neuts Not Reportable 11/14/21 05:30 Smudge Cells Not Reportable 11/14/21 05:30 Toxic Granulation Not Reportable 11/14/21 05:30 Toxic Vacuolation Not Reportable 11/14/21 05:30 Dohle Bodies Not Reportable 11/14/21 05:30 Pelger-Huet Anomaly Not Reportable 11/14/21 05:30 Agata Rods Not Reportable 11/14/21 05:30 Platelet Estimate Consistent w auto 11/14/21 05:30 Clumped Platelets Not Reportable 11/14/21 05:30 Plt Clumps, EDTA Not Reportable 11/14/21 05:30 Large Platelets Not Reportable 11/14/21 05:30 Giant Platelets Not Reportable 11/14/21 05:30 Platelet Satelliting Not Reportable 11/14/21 05:30 Plt Morphology Comment Not Reportable 11/14/21 05:30 RBC Morphology Not Reportable 11/14/21 05:30 Dimorphic RBCs Not Reportable 11/14/21 05:30 Polychromasia Not Reportable 11/14/21 05:30 Hypochromasia 1+ 11/14/21 05:30 Poikilocytosis Not Reportable 11/14/21 05:30 Anisocytosis 1+ 11/14/21 05:30 Microcytosis Not Reportable 11/14/21 05:30 Macrocytosis Not Reportable 11/14/21 05:30 Spherocytes Not Reportable 11/14/21 05:30 Pappenheimer Bodies Not Reportable 11/14/21 05:30 Sickle Cells Not Reportable 11/14/21 05:30 Target Cells Not Reportable 11/14/21 05:30 Tear Drop Cells Not Reportable 11/14/21 05:30 Ovalocytes Few 11/14/21 05:30 Helmet Cells Not Reportable 11/14/21 05:30 Cha-Poinciana Bodies Not Reportable 11/14/21 05:30 [place] Rings Not Reportable 11/14/21 05:30 [place] Cells Not Reportable 11/14/21 05:30 Bite Cells Not Reportable 11/14/21 05:30 Crenated Cell Not Reportable 11/14/21 05:30 Elliptocytes Not Reportable 11/14/21 05:30 Acanthocytes (Spur) Not Reportable 11/14/21 05:30 Rouleaux Not Reportable 11/14/21 05:30 Hemoglobin C Crystals Not Reportable 11/14/21 05:30 Schistocytes Not Reportable 11/14/21 05:30 Malaria parasites Not Reportable 11/14/21 05:30 Joshua Bodies Not Reportable 11/14/21 05:30 Hem Pathologist Commnt No 11/14/21 05:30 PT 16.9 Sec. (12.2-14.9) H 11/13/21 09:03 INR 1.20 (0.87-1.13) H 11/13/21 09:03 APTT 32.0 Sec. (24.2-36.6) 11/13/21 09:03 ABG pH 7.384 pH Units (7.350-7.450) 11/14/21 03:45 ABG pCO2 35.5 mm Hg 11/14/21 03:45 ABG pO2 112.8 mm Hg (80.0-90.0) H 11/14/21 03:45 ABG HCO3 20.7 mmol/L (20.0-26.0) 11/14/21 03:45 ABG O2 Saturation 98.1 % (95.0-99.0) 11/14/21 03:45 ABG O2 Content 9.1 (0.0-44) 11/14/21 03:45 ABG Base Excess -4.0 mmol/L (-2.0-3.0) L 11/14/21 03:45 ABG Hemoglobin 6.6 gm/dl (14.0-18.0) L 11/14/21 03:45 ABG Carboxyhemoglobin 1.7 % (0.0-5.0) 11/14/21 03:45 ABG Methemoglobin 0.6 % (0.0-1.5) 11/14/21 03:45 Oxyhemoglobin 95.8 % (95.0-99.0) 11/14/21 03:45 FiO2 40 % 11/14/21 03:45 Sodium 143 mmol/L (137-145) 11/14/21 05:30 Potassium 3.9 mmol/L (3.6-5.0) 11/14/21 05:30 Chloride 109.3 mmol/L (98-107) H 11/14/21 05:30 Carbon Dioxide 20 mmol/L (22-30) L 11/14/21 05:30 Anion Gap 18 mmol/L 11/14/21 05:30 BUN 35 mg/dL (9-20) H 11/14/21 05:30 Creatinine 0.5 mg/dL (0.8-1.3) L 11/14/21 05:30 Estimated GFR > 60 ml/min 11/14/21 05:30 BUN/Creatinine Ratio 70 % 11/14/21 05:30 Glucose 149 mg/dL (75-100) H 11/14/21 05:30 Calcium 7.9 mg/dL (8.4-10.2) L 11/14/21 05:30 Total Bilirubin 0.30 mg/dL (0.1-1.2) 11/14/21 05:30 AST 14 units/L (5-40) 11/14/21 05:30 ALT 9 units/L (7-56) 11/14/21 05:30 Alkaline Phosphatase 80 units/L (35-129) 11/14/21 05:30 Troponin T 0.050 ng/mL (0.00-0.029) H 11/13/21 11:33 NT-Pro-B Natriuret Pep 1118 pg/mL (0-900) H 11/13/21 09:03 Total Protein 6.2 g/dL (6.3-8.2) L 11/14/21 05:30 Albumin 2.1 g/dL (3.9-5) L 11/14/21 05:30 Albumin/Globulin Ratio 0.5 % 11/14/21 05:30 Triglycerides 96 mg/dL (2-149) 11/13/21 11:33 Cholesterol 115 mg/dL (50-199) 11/13/21 11:33 LDL Cholesterol Direct 61 mg/dL (50-130) 11/13/21 11:33 HDL Cholesterol 28 mg/dL (40-59) L 11/13/21 11:33 Cholesterol/HDL Ratio 4.10 % 11/13/21 11:33 TSH 1.680 mlU/mL (0.270-4.200) 11/13/21 09:03 Free T4 1.27 ng/dL (0.76-1.46) 11/13/21 09:03 Urine Color Yellow (Yellow) 11/13/21 11:12 Urine Turbidity Cloudy (Clear) 11/13/21 11:12 Urine pH 6.0 (5.0-7.0) 11/13/21 11:12 Ur Specific [place] 1.015 (1.003-1.030) 11/13/21 11:12 Urine Protein 100 mg/dl mg/dL (Negative) 11/13/21 11:12 Urine Glucose (UA) Negative mg/dL (Negative) 11/13/21 11:12 Urine Ketones 15 mg/dL (Negative) 11/13/21 11:12 Urine Blood Large (Negative) A 11/13/21 11:12 Urine Nitrite Negative (Negative) 11/13/21 11:12 Urine Bilirubin Negative (Negative) 11/13/21 11:12 Urine Urobilinogen 0.0 mg/dL (<2.0) 11/13/21 11:12 Ur Leukocyte Esterase Moderate (Negative) 11/13/21 11:12 Urine WBC (Auto) > 182.0 /HPF (0.0-6.0) H 11/13/21 11:12 Urine RBC (Auto) > 182.0 /HPF (0.0-6.0) 11/13/21 11:12 Urine Bacteria (Auto) 2+ /HPF (Negative) 11/13/21 11:12 Ur Yeast w [place] Few /HPF 11/13/21 11:12 Urine Yeast (Budding) Few /HPF 11/13/21 11:12 Blood Type A POSITIVE 11/13/21 09:08 Antibody Screen Negative 11/13/21 09:08 Crossmatch See Detail 11/13/21 09:08 Microbiology: Microbiology 11/14/21 12:31 Gatric Aspirate Gastric Occult Blood - Final 11/14/21 09:25 Peripheral/Venous Blood Culture - Preliminary Culture in Progress 11/14/21 09:25 Peripheral/Venous Blood Culture - Preliminary Culture in Progress [place]/IV: Voiding Method Suprapubic catheter Active Medications - Current Medications Current Medications: Generic Name Dose Route Start Last Admin Trade Name Freq PRN Reason Stop Dose Admin Acetaminophen 650 mg 11/13/21 13:07 Acetaminophen 650 Mg Rect Supp DE Q6H PRN Pain MILD(1-3)/Fever >100.5/CHIU Acetaminophen 650 mg 11/13/21 21:18 Acetaminophen 325 Mg Tab PO Q4H PRN Pain MILD(1-3)/Fever >100.5/CHIU Albuterol/Ipratropium 1 ampul 11/14/21 08:00 11/14/21 13:30 Ipratropium/Albuterol Sulfate 3 Ml Ampul.Neb IH 1 ampul QIDRT YE Administration Docusate Sodium 100 mg 11/14/21 11:00 11/14/21 10:42 Docusate Sodium 100 Mg/10 Ml Oral Liqd FEEDTUBE 100 mg BID YE Administration Fentanyl 50 mcg 11/13/21 10:42 11/13/21 10:49 Fentanyl 100 Mcg/2 Ml Inj IV 50 mcg Q10MIN PRN Administration ANALGESIA Pantoprazole Sodium 80 mg/ 100 mls @ 10 mls/hr 11/13/21 09:30 11/14/21 07:49 Sodium Chloride IV 8 mg/hr DIRECT YE 10 mls/hr Administration 8 MG/HR NORepinephrine/NS 8 MG-250 ML 8 mg in 250 mls @ 3.75 mls/hr 11/13/21 09:30 11/14/21 10:55 Norepinephrine/Ns 8 Mg-250 Ml (Double Conc) IV 4 mcg/min TITRATE YE 7.5 mls/hr Titration Protocol 2 MCG/MIN Propofol 1,000 mg in 100 mls @ 2.041 mls/hr 11/13/21 10:00 11/14/21 07:31 Diprivan 10 Mg/Ml IV 0 mcg/kg/min TITR YE 0 mls/hr Titration Protocol 5 MCG/KG/MIN Fentanyl Citrate 2,000 mcg in 100 mls @ 3.402 mls/hr 11/13/21 11:00 11/14/21 07:57 Fentanyl Drip Premix IV 0 mcg/kg/hr TITR YE 0 mls/hr Titration Protocol 1 MCG/KG/HR Sodium Chloride 1,000 mls @ 125 mls/hr 11/13/21 21:30 11/14/21 07:53 Nacl 0.9% 1000 Ml IV 125 mls/hr DIRECT YE Administration Cefepime HCl 2 gm in 100 mls @ 200 mls/hr 11/13/21 22:00 11/14/21 13:09 Cefepime/Ns 2 Gm/100 Ml IV 200 mls/hr Q8H YE Administration Protocol Vancomycin HCl 1 gm in 250 mls @ 250 mls/hr 11/14/21 06:00 11/14/21 07:49 Vancomycin/Ns 1 Gm/250 Ml IV Infused Q12H YE Infusion Vasopressin 20 unit/ Sodium 101 mls @ 9.09 mls/hr 11/14/21 09:00 Chloride IV TITR YE Protocol 0.03 UNITS/MIN Sodium Chloride 500 mls @ 0 mls/hr 11/14/21 08:42 Nacl 0.9% 500 Ml IV 11/14/21 23:59 ONCE NR As Directed Metoclopramide HCl 10 mg 11/13/21 21:18 Metoclopramide 10 Mg/2 Ml Inj IV Q6H PRN Nausea And Vomiting Morphine Sulfate 2 mg 11/13/21 13:11 Morphine 2 Mg/1 Ml Inj IV Q4H PRN Pain, Moderate (4-6) Ondansetron HCl 4 mg 11/13/21 21:18 Ondansetron 4 Mg/2 Ml Inj IV Q3H PRN Nausea And Vomiting Polyethylene Glycol 17 gm 11/15/21 10:00 Polyethylene Glycol 3350 17 Gm Powder PO QDAY YE Polyethylene Glycol/Electrolytes 4,000 ml 11/14/21 16:05 Polyethylene Glycol/Elect Soln 4000 Ml PO 11/14/21 16:06 ONCE ONE Senna 17.2 mg 11/14/21 11:00 11/14/21 10:42 Sennosides 8.6 Mg Tab FEEDTUBE 17.2 mg BID YE Administration Sodium Chloride 10 ml 11/13/21 22:00 11/14/21 10:05 Sodium Chloride 0.9% 10 Ml Flush Syringe IV 10 ml BID YE Administration Sodium Chloride 10 ml 11/13/21 21:18 Sodium Chloride 0.9% 10 Ml Flush Syringe IV PRN PRN LINE FLUSH <DALTON DE LEON - Last Filed: 11/22/21 12:22> Assessment and Plan Assessment and plan: I saw and evaluated the patient. Discussed with the nurse practitioner and agree with their findings and plan as documented in this note. Hospitalist Physical - Constitutional Vitals: Temp Pulse Resp BP Pulse Ox 97.8 F 112 H 24 92/56 95 11/20/21 16:30 11/20/21 16:30 11/20/21 16:30 11/20/21 16:30 11/20/21 16:30 HEART Score - HEART Score Troponin: Troponin T 0.050 ng/mL (0.00-0.029) H 11/13/21 11:33 Results - Labs CBC & Chem 7: 11/19/21 10:00 11/19/21 10:00 Labs: Laboratory Last Values WBC 9.7 K/mm3 (4.5-11.0) 11/19/21 10:00 RBC 3.54 M/mm3 (3.65-5.03) L 11/19/21 10:00 Hgb 8.9 gm/dl (11.8-15.2) L 11/19/21 10:00 Hct 27.5 % (35.5-45.6) L 11/19/21 10:00 MCV 78 fl (84-94) L 11/19/21 10:00 MCH 25 pg (28-32) L 11/19/21 10:00 MCHC 32 % (32-34) 11/19/21 10:00 RDW 21.8 % (13.2-15.2) H 11/19/21 10:00 Plt Count 519 K/mm3 (140-440) H 11/19/21 10:00 Lymph % (Auto) 11.5 % (13.4-35.0) L 11/19/21 10:00 [place] % (Auto) 8.8 % (0.0-7.3) H 11/19/21 10:00 Eos % (Auto) 1.8 % (0.0-4.3) 11/19/21 10:00 Baso % (Auto) 0.4 % (0.0-1.8) 11/19/21 10:00 Lymph # (Auto) 1.1 K/mm3 (1.2-5.4) L 11/19/21 10:00 [place] # (Auto) 0.9 K/mm3 (0.0-0.8) H 11/19/21 10:00 Eos # (Auto) 0.2 K/mm3 (0.0-0.4) 11/19/21 10:00 Baso # (Auto) 0.0 K/mm3 (0.0-0.1) 11/19/21 10:00 Add Manual Diff Complete 11/14/21 05:30 Total Counted 100 11/14/21 05:30 Seg Neutrophils % 77.5 % (40.0-70.0) H 11/19/21 10:00 Seg Neuts % (Manual) 100.0 % (40.0-70.0) H 11/14/21 05:30 Band Neutrophils % 0 % 11/14/21 05:30 Lymphocytes % (Manual) 0 % (13.4-35.0) L 11/14/21 05:30 Reactive Lymphs % (Man) 0 % 11/14/21 05:30 Monocytes % (Manual) 0 % (0.0-7.3) 11/14/21 05:30 Eosinophils % (Manual) 0 % (0.0-4.3) 11/14/21 05:30 Basophils % (Manual) 0 % (0.0-1.8) 11/14/21 05:30 Metamyelocytes % 0 % 11/14/21 05:30 Myelocytes % 0 % 11/14/21 05:30 Promyelocytes % 0 % 11/14/21 05:30 Blast Cells % 0 % 11/14/21 05:30 Nucleated RBC % 1.0 % (0.0-0.9) H 11/14/21 05:30 Seg Neutrophils # 7.5 K/mm3 (1.8-7.7) 11/19/21 10:00 Seg Neutrophils # Man 26.0 K/mm3 (1.8-7.7) H 11/14/21 05:30 Band Neutrophils # 0.0 K/mm3 11/14/21 05:30 Lymphocytes # (Manual) 0.0 K/mm3 (1.2-5.4) L 11/14/21 05:30 Abs React Lymphs (Man) 0.0 K/mm3 11/14/21 05:30 Monocytes # (Manual) 0.0 K/mm3 (0.0-0.8) 11/14/21 05:30 Eosinophils # (Manual) 0.0 K/mm3 (0.0-0.4) 11/14/21 05:30 Basophils # (Manual) 0.0 K/mm3 (0.0-0.1) 11/14/21 05:30 Metamyelocytes # 0.0 K/mm3 11/14/21 05:30 Myelocytes # 0.0 K/mm3 11/14/21 05:30 Promyelocytes # 0.0 K/mm3 11/14/21 05:30 Blast Cells # 0.0 K/mm3 11/14/21 05:30 WBC Morphology Not Reportable 11/14/21 05:30 Hypersegmented Neuts Not Reportable 11/14/21 05:30 Hyposegmented Neuts Not Reportable 11/14/21 05:30 Hypogranular Neuts Not Reportable 11/14/21 05:30 Smudge Cells Not Reportable 11/14/21 05:30 Toxic Granulation Not Reportable 11/14/21 05:30 Toxic Vacuolation Not Reportable 11/14/21 05:30 Dohle Bodies Not Reportable 11/14/21 05:30 Pelger-Huet Anomaly Not Reportable 11/14/21 05:30 Agata Rods Not Reportable 11/14/21 05:30 Platelet Estimate Consistent w auto 11/14/21 05:30 Clumped Platelets Not Reportable 11/14/21 05:30 Plt Clumps, EDTA Not Reportable 11/14/21 05:30 Large Platelets Not Reportable 11/14/21 05:30 Giant Platelets Not Reportable 11/14/21 05:30 Platelet Satelliting Not Reportable 11/14/21 05:30 Plt Morphology Comment Not Reportable 11/14/21 05:30 RBC Morphology Not Reportable 11/14/21 05:30 Dimorphic RBCs Not Reportable 11/14/21 05:30 Polychromasia Not Reportable 11/14/21 05:30 Hypochromasia 1+ 11/14/21 05:30 Poikilocytosis Not Reportable 11/14/21 05:30 Anisocytosis 1+ 11/14/21 05:30 Microcytosis Not Reportable 11/14/21 05:30 Macrocytosis Not Reportable 11/14/21 05:30 Spherocytes Not Reportable 11/14/21 05:30 Pappenheimer Bodies Not Reportable 11/14/21 05:30 Sickle Cells Not Reportable 11/14/21 05:30 Target Cells Not Reportable 11/14/21 05:30 Tear Drop Cells Not Reportable 11/14/21 05:30 Ovalocytes Few 11/14/21 05:30 Helmet Cells Not Reportable 11/14/21 05:30 Cha-Poinciana Bodies Not Reportable 11/14/21 05:30 [place] Rings Not Reportable 11/14/21 05:30 [place] Cells Not Reportable 11/14/21 05:30 Bite Cells Not Reportable 11/14/21 05:30 Crenated Cell Not Reportable 11/14/21 05:30 Elliptocytes Not Reportable 11/14/21 05:30 Acanthocytes (Spur) Not Reportable 11/14/21 05:30 Rouleaux Not Reportable 11/14/21 05:30 Hemoglobin C Crystals Not Reportable 11/14/21 05:30 Schistocytes Not Reportable 11/14/21 05:30 Malaria parasites Not Reportable 11/14/21 05:30 Joshua Bodies Not Reportable 11/14/21 05:30 Hem Pathologist Commnt No 11/14/21 05:30 PT 16.9 Sec. (12.2-14.9) H 11/13/21 09:03 INR 1.20 (0.87-1.13) H 11/13/21 09:03 APTT 32.0 Sec. (24.2-36.6) 11/13/21 09:03 ABG pH 7.384 pH Units (7.350-7.450) 11/14/21 03:45 ABG pCO2 35.5 mm Hg 11/14/21 03:45 ABG pO2 112.8 mm Hg (80.0-90.0) H 11/14/21 03:45 ABG HCO3 20.7 mmol/L (20.0-26.0) 11/14/21 03:45 ABG O2 Saturation 98.1 % (95.0-99.0) 11/14/21 03:45 ABG O2 Content 9.1 (0.0-44) 11/14/21 03:45 ABG Base Excess -4.0 mmol/L (-2.0-3.0) L 11/14/21 03:45 ABG Hemoglobin 6.6 gm/dl (14.0-18.0) L 11/14/21 03:45 ABG Carboxyhemoglobin 1.7 % (0.0-5.0) 11/14/21 03:45 ABG Methemoglobin 0.6 % (0.0-1.5) 11/14/21 03:45 Oxyhemoglobin 95.8 % (95.0-99.0) 11/14/21 03:45 FiO2 40 % 11/14/21 03:45 Sodium 145 mmol/L (137-145) D 11/19/21 10:00 Potassium 2.9 mmol/L (3.6-5.0) L* 11/19/21 10:00 Chloride 112.0 mmol/L (98-107) H 11/19/21 10:00 Carbon Dioxide 24 mmol/L (22-30) 11/19/21 10:00 Anion Gap 12 mmol/L 11/19/21 10:00 BUN 10 mg/dL (9-20) 11/19/21 10:00 Creatinine 0.4 mg/dL (0.8-1.3) L 11/19/21 10:00 Estimated GFR > 60 ml/min 11/19/21 10:00 BUN/Creatinine Ratio 25 % 11/19/21 10:00 Glucose 85 mg/dL (75-100) 11/19/21 10:00 POC Glucose 70 mg/dL (70-105) 11/20/21 16:02 Calcium 8.3 mg/dL (8.4-10.2) L 11/19/21 10:00 Phosphorus 2.10 mg/dL (2.5-4.5) L 11/16/21 04:00 Magnesium 1.60 mg/dL (1.7-2.3) L 11/16/21 04:00 Iron 9 ug/dL (49-181) L 11/14/21 17:59 TIBC 155 mcg/dL (250-450) L 11/14/21 17:59 Total Bilirubin 0.30 mg/dL (0.1-1.2) 11/14/21 05:30 AST 14 units/L (5-40) 11/14/21 05:30 ALT 9 units/L (7-56) 11/14/21 05:30 Alkaline Phosphatase 80 units/L (35-129) 11/14/21 05:30 Troponin T 0.050 ng/mL (0.00-0.029) H 11/13/21 11:33 NT-Pro-B Natriuret Pep 1118 pg/mL (0-900) H 11/13/21 09:03 Total Protein 6.2 g/dL (6.3-8.2) L 11/14/21 05:30 Albumin 2.1 g/dL (3.9-5) L 11/14/21 05:30 Albumin/Globulin Ratio 0.5 % 11/14/21 05:30 Triglycerides 96 mg/dL (2-149) 11/13/21 11:33 Cholesterol 115 mg/dL (50-199) 11/13/21 11:33 LDL Cholesterol Direct 61 mg/dL (50-130) 11/13/21 11:33 HDL Cholesterol 28 mg/dL (40-59) L 11/13/21 11:33 Cholesterol/HDL Ratio 4.10 % 11/13/21 11:33 Vitamin B12 483.5 pg/mL (211-911) 11/14/21 17:59 TSH 1.680 mlU/mL (0.270-4.200) 11/13/21 09:03 Free T4 1.27 ng/dL (0.76-1.46) 11/13/21 09:03 Urine Color Yellow (Yellow) 11/13/21 11:12 Urine Turbidity Cloudy (Clear) 11/13/21 11:12 Urine pH 6.0 (5.0-7.0) 11/13/21 11:12 Ur Specific [place] 1.015 (1.003-1.030) 11/13/21 11:12 Urine Protein 100 mg/dl mg/dL (Negative) 11/13/21 11:12 Urine Glucose (UA) Negative mg/dL (Negative) 11/13/21 11:12 Urine Ketones 15 mg/dL (Negative) 11/13/21 11:12 Urine Blood Large (Negative) A 11/13/21 11:12 Urine Nitrite Negative (Negative) 11/13/21 11:12 Urine Bilirubin Negative (Negative) 11/13/21 11:12 Urine Urobilinogen 0.0 mg/dL (<2.0) 11/13/21 11:12 Ur Leukocyte Esterase Moderate (Negative) 11/13/21 11:12 Urine WBC (Auto) > 182.0 /HPF (0.0-6.0) H 11/13/21 11:12 Urine RBC (Auto) > 182.0 /HPF (0.0-6.0) 11/13/21 11:12 Urine Bacteria (Auto) 2+ /HPF (Negative) 11/13/21 11:12 Ur Yeast w Hyphae Few /HPF 11/13/21 11:12 Urine Yeast (Budding) Few /HPF 11/13/21 11:12 Vancomycin Trough 26.4 ug/mL (5.0-20.0) H 11/17/21 Unknown SARS-CoV-2 (PCR) Negative (Negative) 11/20/21 11:30 Blood Type A POSITIVE 11/13/21 09:08 Antibody Screen Negative 11/13/21 09:08 Crossmatch See Detail 11/13/21 09:08 [place]/IV: Voiding Method Suprapubic catheter Nutrition/Malnutrition Assess - Dietary Evaluation Nutrition/Malnutrition Findings: Nutrition Notes Start: 11/14/21 16:07 Freq: Status: Discharge Protocol: Document 11/16/21 11:20 MERRY (Rec: 11/16/21 11:39 MERRY [id number]) Nutrition Notes Initial or Follow up Brief Note Current Diagnosis COPD,Sepsis,Hypertension, Respiratory Failure, Malnutrition Other Pertinent Diagnosis COPD, CHF, Metabolic Encephalopathy, Dysphagia, Anemia, Hypotension, ... Current Diet TF-Vital AF 1.2 Darvin @ 65 ml/hr (from D 11/15). Height 6 ft Weight 75.9 kg [place] Body Weight (kg) 80.90 BMI 22.6 Weight change and time frame Discrepancy of 7.861 Kg body weight gain reporterd in 1 day . Weight Status Appropriate Subjective/Other Information RD consult for write/manage TF . TF was prescribed and order yesterday on 11/15. Pt was temporarly on NPO for PEG tube placement today 11/16 , according to RN notes. ADVENTURE THER[employer]IST note on 11/16/21 09:14: Modified Barium Swallow study has been conducted. Patient presents with significantly reduced A-P bolus propulsion with premature spillage of all consistencies. Swallow reflex is delayed with some residuals in the pharynx, however, with a second swallow , residuals cleared. Laryngeal penetration was identified with thins. Although no aspiration was identified, the patient if not fed properly, is at significant risk for aspiration due to the factors stated above. He does not desire to be placed in an upright position and if fed rapidly or with a significant amount of food placed in the oral cavity without adequate clearance, the potential for aspiration is extremely high will will result in aspiration pneumonia. If the patient is fed under ideal conditions with small bolus volumes of food and liquids at a slow rate and allowed to effectively clear, the potential for aspiration is lessened. With the presence of lung diseases, it is vital that these precautions be strictly adhered to in the prevention of aspiration. Recommend a pureed diet with nectar thickened liquids. Patient should be fed upright at 90 degrees regardless of his resistance. Small bites and sips should be given, allowing the him to clear prior to additional boluses. NO STRAWS SHOULD BE USED. Patient must remain upright 30 minutes following the completion of a meal. A swallowing precaution sign will be placed above the patient's bed. THESE GUIDELINES MUST BE STRICTLY FOLLOWED OR THERE IS A POTENTIAL FOR THE PATIENT TO ASPIRATE. The patient's capacity to swallow will progressively digress based on his diagnoses; therefore, he will be followed to ensure continued safety.- END OF NOTE . Percent of energy/protein needs met: Prescribed TF-Vital AF 1.2 Darvin @ 65 ml/hr provides for energy/protein needs (1,885 Kcal/118 g) during LOS, 84% Kcal; 100% AA. #2 Nutrition Diagnosis Swallowing difficulty Diagnosis Progress(for reassessment Continues documentation) #1 Nutrition Diagnosis Malnutrition Diagnosis Progress(for reassessment Continues documentation) Is patient on ventilator? No Is Patient Ambulatory and/or Out of Bed No REE-([facility]-confined to bed) 1891.920 Kcal/Kg value to use for calculation 30 Approximate Energy Requirements Using 2277 kcal/Kg Calculation Used for Recommendations Kcal/kg Additional Notes Protein: 1.2-1.5 g/Kg IBW; 97- 122 g/day. Fluids: 1 ml/Kcal, or as per MD. Nutrition Intervention Nutrition Support: When pertinet (after PEG placement), resume TF-Vital AF 1.2 Darvin @ 65 ml/hr. Flush: 160 ml water Q 4 hr, or as per MD. Kcal 1,885 Protein (gm) 118 Carbohydrates (gm) 174 Fat (gm) 85 Fluid (mL) 1,274 Fiber (gm) 8 % RDI: 84% Kcal; 100% AA. Goal #1 Provide at least 75% of energy /protein needs through Enteral Feeding during LOS. Goal #2 Adjust the dietary intervention to better serve Pt's needs and clinical conditions during LOS. Follow-Up By: 11/23/21 Additional Comments When pertinent, continue monitoring TF tolerance and BM .
[2021-11-14] MEDS ORDERED: ALBUTEROL 8.5 GM MDI INHALATION IH PRN (16:33)
[2021-11-14] MEDS ORDERED: ACETAMINOPHEN 325 MG TAB FEEDTUBE PRN (16:41)
[2021-11-14] MEDS ORDERED: POLYETHYLENE GLYCOL/ELECT SOLN 4000 ML PO SCH (17:00)
--- NOTE | 2021-11-14 17:00 | Consultation ---
History of Present Illness - Reason for Consult Consult date: 11/14/21 Constipation Requesting physician: RAJ MACIAS - History of Present Illness Mr. Umaña is a 66-year-old man with a history of multiple sclerosis, paraplegia, COPD, who is a [facility] resident. He was brought to the hospital after a bout of aspiration, and intubated overnight. He is now extubated and doing well. He has known chronic anemia with a hemoglobin of 6.2-7 routinely. He has undergone an upper endoscopy by me in February 15, 2020 which showed 3 duodenal ulcers. He also has a history of chronic constipation, and was to have been on a bowel regimen previously. Patient states he still has constipation and denies abdominal discomfort. CT scan showed fecal impaction, and GI consultation is obtained. No known history of GI bleed. Medications reviewed. 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) Family history: other (obtain) Medications and Allergies Allergies Allergy/AdvReac Type Severity Reaction Status Date / Time carbamazepine [From Tegretol] Allergy Itching Verified 08/14/21 06:58 ketorolac tromethamine Allergy Itching Verified 08/14/21 06:58 [From Toradol] tramadol Allergy Itching Verified 08/14/21 06:58 hydromorphone AdvReac Unknown Verified 08/14/21 06:58 ketorolac [From Toradol] AdvReac Unknown Verified 08/14/21 06:58 meperidine AdvReac Unknown Verified 08/14/21 06:58 Home Medications Medication Instructions Recorded Confirmed Last Taken Type Albuterol Mdi (or & Nicu Only) 2 puff IH QID PRN 12/20/13 09/10/16 04/14/15 History [ProAir HFA Inhaler] polyethylene glycoL 3350 [Miralax 17 gm PO QDAY 12/22/14 09/11/16 04/14/15 History 3350] Ascorbic Acid [Vitamin C] 500 mg PO QDAY 05/04/15 09/11/16 Unknown History Multivit with Iron,Minerals 1 each PO QAM 05/04/15 09/11/16 Unknown History [Spectravite Senior] Sennosides/Docusate Sodium 2 each PO QHS 05/04/15 09/11/16 Unknown History [Senna-S Tablet] Pregabalin [Lyrica] 100 mg PO BID 01/15/16 09/11/16 Unknown History Protein Supplement [Promod] 30 ml PO TID 01/15/16 09/11/16 Unknown History carisoprodoL [Soma] 350 mg PO TID PRN 01/15/16 09/11/16 Unknown History guaiFENesin [Guaifenesin ER] 1,200 mg PO Q12H PRN 01/15/16 09/11/16 Unknown History Acetaminophen [Acetaminophen TAB] 650 mg PO Q4H PRN 09/10/16 09/10/16 Unknown History Baclofen 20 mg PO TID PRN 09/10/16 09/10/16 Unknown History Diazepam [Valium] 10 mg PO Q6H PRN 09/11/16 09/11/16 Unknown History Furosemide [Lasix TAB] 1 tab PO BID PRN 09/11/16 09/11/16 Unknown History Mirtazapine [Remeron] 15 mg PO QHS 09/11/16 09/11/16 Unknown History Maljamar-3/Dha/Epa/Fish Oil [Maljamar 3 1,000 mg PO BID 09/11/16 09/11/16 Unknown History 500 Softgel] Potassium Chloride [K-Tab ER] 1 tab PO QDAY 09/11/16 09/11/16 Unknown History Warfarin Sodium [Coumadin] 4 mg PO QPM 09/11/16 09/11/16 Unknown History Ciprofloxacin HCl [Cipro] 500 mg PO BID #14 tablet 05/24/17 Unknown Rx Ascorbic Acid [Vitamin C] 500 mg PO BID 02/04/20 02/14/20 Unknown History Dextran 70/Hypromellose 1 each OP DAILY 02/04/20 02/14/20 Unknown History [Artificial Tears] Ferrous Sulfate [Feosol 325 MG tab] 325 mg PO BID 02/04/20 02/14/20 Unknown History Mirtazapine 7.5 mg PO QHS 02/04/20 02/14/20 Unknown History Pregabalin [Lyrica] 100 mg PO BID 02/04/20 02/14/20 Unknown History Protein Supplement [Promod] 30 ml PO TID 02/04/20 02/14/20 Unknown History Warfarin [Coumadin] 5 mg PO QDAY 02/04/20 02/14/20 Unknown History fentaNYL [Fentanyl] 1 each TD DAILY 02/04/20 02/14/20 Unknown History Pantoprazole [Protonix TAB] 40 mg PO BIDAC #60 tablet 02/18/20 Unknown Rx Vancomycin 125 mg PO Q6HR 10 Days 02/18/20 Unknown Rx Cefepime 1 gm IV Q24H 7 Days vial 02/23/21 Unknown Rx Active Meds: Active Medications Acetaminophen (Acetaminophen 650 Mg Rect Supp) 650 mg TN Q6H PRN PRN Reason: Pain MILD(1-3)/Fever >100.5/CHIU Acetaminophen (Acetaminophen 325 Mg Tab) 650 mg FEEDTUBE Q4H PRN PRN Reason: Pain MILD(1-3)/Fever >100.5/CHIU Albuterol (Albuterol 2.5 Mg/3 Ml Nebu) 2.5 mg IH QIDRT PRN PRN Reason: Shortness Of Breath Albuterol/Ipratropium (Ipratropium/Albuterol Sulfate 3 Ml Ampul.Neb) 1 ampul IH QIDRT YE Last Admin: 11/14/21 16:53 Dose: 1 ampul Artificial Tears (Hypromellose 0.5% Ophth Soln 15 Ml) 1 drops OU QDAY YE Ascorbic Acid (Ascorbic Acid 500 Mg Tab) 500 mg FEEDTUBE QDAY YE Docusate Sodium (Docusate Sodium 100 Mg/10 Ml Oral Liqd) 100 mg FEEDTUBE BID YE Last Admin: 11/14/21 10:42 Dose: 100 mg Ferrous Sulfate (Ferrous Sulfate 300 Mg (60mg Elemental Iron) / 5 Ml Oral Liqd) 300 mg PO QDAY YE NORepinephrine/NS 8 MG-250 ML (Norepinephrine/Ns 8 Mg-250 Ml (Double Conc)) 8 mg in 250 mls @ 3.75 mls/hr IV TITRATE YE; Protocol Last Titration: 11/14/21 10:55 Dose: 4 mcg/min, 7.5 mls/hr Sodium Chloride (Nacl 0.9% 1000 Ml) 1,000 mls @ 125 mls/hr IV DIRECT YE Last Admin: 11/14/21 07:53 Dose: 125 mls/hr Cefepime HCl (Cefepime/Ns 2 Gm/100 Ml) 2 gm in 100 mls @ 200 mls/hr IV Q8H [facility]; Protocol Last Infusion: 11/14/21 13:40 Dose: Infused Vancomycin HCl (Vancomycin/Ns 1 Gm/250 Ml) 1 gm in 250 mls @ 250 mls/hr IV Q12H [facility] Last Infusion: 11/14/21 07:49 Dose: Infused Vasopressin 20 unit/ Sodium (Chloride) 101 mls @ 9.09 mls/hr IV TITR YE; Protocol Sodium Chloride (Nacl 0.9% 500 Ml) 500 mls @ 0 mls/hr IV ONCE NR Stop: 11/14/21 23:59 Lansoprazole (Lansoprazole 30 Mg Solutab) 30 mg FEEDTUBE QDAY YE Metoclopramide HCl (Metoclopramide 10 Mg/2 Ml Inj) 10 mg IV Q6H PRN PRN Reason: Nausea And Vomiting Miscellaneous Medication (Multivit With Iron,Minerals [Spectravite Senior]) 1 each PO QAM [facility] Miscellaneous Medication (Maljamar-3/Dha/Epa/Fish Oil [Maljamar 3 500 Softgel]) 1,000 mg FEEDTUBE BID [facility] Morphine Sulfate (Morphine 2 Mg/1 Ml Inj) 2 mg IV Q4H PRN PRN Reason: Pain, Moderate (4-6) Ondansetron HCl (Ondansetron 4 Mg/2 Ml Inj) 4 mg IV Q3H PRN PRN Reason: Nausea And Vomiting Polyethylene Glycol (Polyethylene Glycol 3350 17 Gm Powder) 17 gm FEEDTUBE QDAY [facility] Polyethylene Glycol/Electrolytes (Polyethylene Glycol/Elect Soln 4000 Ml) 4,000 ml PO ONCE@1700 [facility] Stop: 11/14/21 22:00 Senna (Sennosides 8.6 Mg Tab) 17.2 mg FEEDTUBE BID [facility] Last Admin: 11/14/21 10:42 Dose: 17.2 mg Sodium Chloride (Sodium Chloride 0.9% 10 Ml Flush Syringe) 10 ml IV BID [facility] Last Admin: 11/14/21 10:05 Dose: 10 ml Sodium Chloride (Sodium Chloride 0.9% 10 Ml Flush Syringe) 10 ml IV PRN PRN PRN Reason: LINE FLUSH Review of Systems ROS unobtainable: due to mental status Exam - Constitutional Vitals: Temp Pulse Resp BP Pulse Ox 98.0 F 118 H 17 93/53 97 06/29/22 16:55 11/14/21 16:54 11/14/21 16:54 11/14/21 16:30 11/14/21 16:30 General appearance: Present: no acute distress, cachectic, other (Laconic with slow speech) - EENT Eyes: Present: PERRL, EOM intact ENT: hearing intact - Respiratory Respiratory effort: normal Respiratory: negative: other (Gurgling upper airway sounds with) - Cardiovascular Rhythm: regular Heart Sounds: Present: S1 & S2 - Extremities Extremities: No edema - Abdominal General gastrointestinal: Present: soft, non-tender - Rectal Rectal Exam: other (Patient manually disimpacted with copious amounts of dark brown claylike stool removed. No anson blood or masses) Results - Labs CBC & Chem 7: 11/14/21 05:30 11/14/21 05:30 Labs: Abnormal lab results 11/13/21 11/14/21 11/14/21 Range/Units 09:08 03:45 05:30 WBC 26.0 H (4.5-11.0) K/mm3 RBC 2.79 L (3.65-5.03) M/mm3 Hgb 6.4 L (11.8-15.2) gm/dl Hct 21.2 L (35.5-45.6) % MCV 76 L (84-94) fl MCH 23 L (28-32) pg MCHC 30 L (32-34) % RDW 21.1 H (13.2-15.2) % Plt Count 535 H (140-440) K/mm3 Seg Neuts % (Manual) 100.0 H (40.0-70.0) % Lymphocytes % (Manual) 0 L (13.4-35.0) % Nucleated RBC % 1.0 H (0.0-0.9) % Seg Neutrophils # Man 26.0 H (1.8-7.7) K/mm3 Lymphocytes # (Manual) 0.0 L (1.2-5.4) K/mm3 ABG pO2 112.8 H (80.0-90.0) mm Hg ABG Base Excess -4.0 L (-2.0-3.0) mmol/L ABG Hemoglobin 6.6 L (14.0-18.0) gm/dl Chloride (98-107) mmol/L Carbon Dioxide (22-30) mmol/L BUN (9-20) mg/dL Creatinine (0.8-1.3) mg/dL Glucose (75-100) mg/dL Calcium (8.4-10.2) mg/dL Total Protein (6.3-8.2) g/dL Albumin (3.9-5) g/dL Crossmatch See Detail 11/14/21 Range/Units 05:30 WBC (4.5-11.0) K/mm3 RBC (3.65-5.03) M/mm3 Hgb (11.8-15.2) gm/dl Hct (35.5-45.6) % MCV (84-94) fl MCH (28-32) pg MCHC (32-34) % RDW (13.2-15.2) % Plt Count (140-440) K/mm3 Seg Neuts % (Manual) (40.0-70.0) % Lymphocytes % (Manual) (13.4-35.0) % Nucleated RBC % (0.0-0.9) % Seg Neutrophils # Man (1.8-7.7) K/mm3 Lymphocytes # (Manual) (1.2-5.4) K/mm3 ABG pO2 (80.0-90.0) mm Hg ABG Base Excess (-2.0-3.0) mmol/L ABG Hemoglobin (14.0-18.0) gm/dl Chloride 109.3 H (98-107) mmol/L Carbon Dioxide 20 L (22-30) mmol/L BUN 35 H (9-20) mg/dL Creatinine 0.5 L (0.8-1.3) mg/dL Glucose 149 H (75-100) mg/dL Calcium 7.9 L (8.4-10.2) mg/dL Total Protein 6.2 L (6.3-8.2) g/dL Albumin 2.1 L (3.9-5) g/dL Crossmatch - Imaging and Cardiology CT scan - abdomen: report reviewed Assessment and Plan 1. Fecal impactiondisimpacted. Patient needs to be on a better bowel regimen at the [facility] to ensure that he is having bowel movements at least 3 times a week. Here, I would give him GoLytely to ensure that he is well cleaned out. -GoLytely via NG tube to ensure laxation As outpatient, bowel regimen with MiraLAX or suppositories to ensure BMs at least 3 times a week. 2. Anemiathis is chronic. Patient has known history of peptic ulcer disease and should be on pantoprazole daily. Will check iron studies, as patient may well have multifactorial anemia with anemia of chronic diseases as well. Daily PPI Check iron studies and B12 Monitor hemoglobin and transfuse as needed 3. Malnutrition/aspirationspoke with patient about evaluation for feeding tube placement. Also discussed CODE STATUS with patient. He is thinking it over. If he is willing to consider gastrostomy tube placement, I would obtain a modified barium swallow to check for aspiration, and then if appropriate, consider G-tube placement.
[2021-11-14 17:17] LABS: Hematocrit 26.1 % (35.5-45.6); Hemoglobin 8.3 gm/dl (11.8-15.2)
[2021-11-14 18:08] LABS: Hemoglobin 8.3 gm/dl (11.8-15.2)
[2021-11-14 18:43] LABS: Iron 9 ug/dL (49-181); Total Iron Binding Capacity 155 mcg/dL (250-450)
[2021-11-14] MEDS ORDERED: ALBUTEROL 2.5 MG/3 ML NEBU IH PRN (20:00)
[2021-11-14] MEDS: OMEGA-3 FATTY ACIDS/FISH OIL 1 GRAM CAP PO SCH (21:22)
[2021-11-14] MEDS ORDERED: FERROUS SULFATE 325 MG TAB PO SCH (22:00)
[2021-11-14] MEDS ORDERED: NON-FORMULARY EACH (Omega-3/Dha/Epa/Fish Oil [Omega 3 500 Softgel] 1 EACH Capsule) PO SCH (22:00)
[2021-11-14] MEDS ORDERED: DHA FEEDTUBE SCH (22:00)
[2021-11-14] MEDS ORDERED: FISH OIL FEEDTUBE SCH (22:00)
[2021-11-14] MEDS ORDERED: EPA FEEDTUBE SCH (22:00)
[2021-11-14] MEDS ORDERED: OMEGA FEEDTUBE SCH (22:00)
[2021-11-15 00:35] LABS: Hematocrit 24.7 % (35.5-45.6); Hemoglobin 7.8 gm/dl (11.8-15.2)
[2021-11-15] MEDS: SODIUM CHLORIDE 0.9% 1000 ML 1,000 ML IV SCH ×2 (02:42→12:57)
[2021-11-15 04:28] LABS: Hematocrit 24.6 % (35.5-45.6); Hemoglobin 7.7 gm/dl (11.8-15.2); Mean Corpuscular HGB Conc 31 % (32-34); Mean Corpuscular Volume 79 fl (84-94); Platelet Count 344 K/mm3 (140-440); Red Blood Count 3.12 M/mm3 (3.65-5.03)
[2021-11-15 04:32] LABS: Red Cell Distribution Width 21.4 % (13.2-15.2)
[2021-11-15 04:53] LABS: Blood Urea Nitrogen 23 mg/dL (9-20); Hemolysis Index 0
[2021-11-15 04:57] LABS: BUN/Creatinine Ratio 58
[2021-11-15] MEDS: CEFEPIME/NS 2 GM/100 ML 2 GM/100 ML BAG IV SCH ×3 (05:01→22:59)
[2021-11-15] MEDS: VANCOMYCIN/NS 1 GM/250 ML 1 GM/250 ML BAG IV SCH (05:33)
[2021-11-15] MEDS ORDERED: POTASSIUM CHLORIDE 20 MEQ PACKET FEEDTUBE ONE (05:49)
[2021-11-15] MEDS ORDERED: PANTOPRAZOLE 40 MG TAB PO SCH (07:30)
[2021-11-15] MEDS: IPRATROPIUM/ALBUTEROL SULFATE 3 ML AMPUL.NEB IH SCH ×4 (08:28→21:46)
[2021-11-15] MEDS ORDERED: POTASSIUM PHOSPHATE 45 MMOL in SODIUM CHLORIDE 0.9% 500 ML 500 ML IV ONE (09:00)
[2021-11-15] MEDS: FERROUS SULFATE 300 MG (60MG Elemental Iron) / 5 mL ORAL LIQD PO SCH (09:31)
[2021-11-15] MEDS: HYPROMELLOSE 0.5% OPHTH SOLN 15 ML OU SCH (09:31)
[2021-11-15] MEDS: POLYETHYLENE GLYCOL 3350 17 GM POWDER FEEDTUBE SCH (09:31)
[2021-11-15] MEDS: MULTIVITAMINS,THER W-MINERALS TAB PO SCH (09:32)
[2021-11-15] MEDS: ASCORBIC ACID 500 MG TAB FEEDTUBE SCH (09:32)
[2021-11-15] MEDS: LANSOPRAZOLE 30 MG SOLUTAB FEEDTUBE SCH (09:32)
[2021-11-15] MEDS: OMEGA-3 FATTY ACIDS/FISH OIL 1 GRAM CAP PO SCH ×2 (09:33→22:15)
[2021-11-15] MEDS: DOCUSATE SODIUM 100 MG/10 ML ORAL LIQD FEEDTUBE SCH ×2 (09:34→22:14)
[2021-11-15] MEDS: SENNOSIDES 8.6 MG TAB FEEDTUBE SCH ×2 (09:34→22:15)
[2021-11-15] MEDS ORDERED: DEXTRAN OP SCH (10:00)
[2021-11-15] MEDS ORDERED: HYPROMELLOSE OP SCH (10:00)
[2021-11-15] MEDS ORDERED: ASCORBIC ACID 500 MG TAB PO SCH (10:00)
[2021-11-15] MEDS ORDERED: POLYETHYLENE GLYCOL 3350 17 GM POWDER PO SCH ×2 (10:00)
[2021-11-15] MEDS ORDERED: MULTIVIT WITH IRON MINERALS PO SCH (10:00)
[2021-11-15] MEDS ORDERED: D5W 50 ML IVPB IV PRN (11:43)
--- NOTE | 2021-11-15 12:04 | Progress Note ---
Assessment and Plan 66 y/o male with acute respiratory failure secondary to sepsis, possibly from infected wounds vs aspiration 11/15/21: No scope as of now per GI, however may need peg tube if truly aspirating. MBS to assess. Stable on room air and no other acute critical care issues, will transfer to floor. 1. Extubate today 2. Continue broad spec abx 3. Can likely stop steroids 4. Wound care consult for wounds 5. GI consult, bowel movement given abdominal imaging 6. Guarded prognosis. CCT 31 minutes. Subjective Date of service: 11/15/21 Interval history: Successful extubation on yesterday, now on room air. GI following. They did agree with moving bowels given imaging. had several bowel movements on yesterday. None documented as bloody or black. Gurgly voice but stable on room air. Objective Vital Signs - 12hr 11/15/21 11/15/21 11/15/21 00:00 00:06 00:15 Temperature 98.6 F Pulse Rate 109 H 109 H 108 H Pulse Rate [ Anterior Bilateral] Respiratory 16 18 15 Rate Respiratory Rate [Anterior Bilateral] Blood Pressure 96/59 96/59 100/62 O2 Sat by Pulse 80 L 96 99 Oximetry 11/15/21 11/15/21 11/15/21 00:30 00:45 01:00 Temperature Pulse Rate 107 H 109 H 108 H Pulse Rate [ Anterior Bilateral] Respiratory 17 17 17 Rate Respiratory Rate [Anterior Bilateral] Blood Pressure 97/55 88/59 96/55 O2 Sat by Pulse 99 99 99 Oximetry 11/15/21 11/15/21 11/15/21 01:15 01:30 01:45 Temperature Pulse Rate 106 H 107 H 107 H Pulse Rate [ Anterior Bilateral] Respiratory 16 17 20 Rate Respiratory Rate [Anterior Bilateral] Blood Pressure 102/63 97/65 96/63 O2 Sat by Pulse 99 95 97 Oximetry 11/15/21 11/15/21 11/15/21 02:00 02:15 02:30 Temperature Pulse Rate 112 H 106 H 107 H Pulse Rate [ Anterior Bilateral] Respiratory 20 21 19 Rate Respiratory Rate [Anterior Bilateral] Blood Pressure 83/62 105/71 105/71 O2 Sat by Pulse 97 96 97 Oximetry 11/15/21 11/15/21 11/15/21 02:45 03:00 03:15 Temperature Pulse Rate 103 H 102 H 108 H Pulse Rate [ Anterior Bilateral] Respiratory 17 19 18 Rate Respiratory Rate [Anterior Bilateral] Blood Pressure 107/64 106/63 110/72 O2 Sat by Pulse 97 91 Oximetry 11/15/21 11/15/21 11/15/21 03:30 03:40 03:45 Temperature 98.2 F Pulse Rate 104 H 103 H Pulse Rate [ Anterior Bilateral] Respiratory 19 18 Rate Respiratory Rate [Anterior Bilateral] Blood Pressure 109/67 101/59 O2 Sat by Pulse 99 Oximetry 11/15/21 11/15/21 11/15/21 04:00 04:15 04:30 Temperature Pulse Rate 108 H 106 H 105 H Pulse Rate [ Anterior Bilateral] Respiratory 22 21 18 Rate Respiratory Rate [Anterior Bilateral] Blood Pressure 114/73 92/44 103/69 O2 Sat by Pulse 96 97 95 Oximetry 11/15/21 11/15/21 11/15/21 04:45 05:00 05:15 Temperature Pulse Rate 104 H 104 H 105 H Pulse Rate [ Anterior Bilateral] Respiratory 18 17 16 Rate Respiratory Rate [Anterior Bilateral] Blood Pressure 112/70 115/67 105/67 O2 Sat by Pulse 97 97 96 Oximetry 11/15/21 11/15/21 11/15/21 05:30 05:45 06:00 Temperature Pulse Rate 108 H 108 H 109 H Pulse Rate [ Anterior Bilateral] Respiratory 13 18 19 Rate Respiratory Rate [Anterior Bilateral] Blood Pressure 107/69 110/66 104/67 O2 Sat by Pulse 86 94 93 Oximetry 11/15/21 11/15/21 11/15/21 06:15 06:30 06:45 Temperature Pulse Rate 110 H 106 H 106 H Pulse Rate [ Anterior Bilateral] Respiratory 21 17 17 Rate Respiratory Rate [Anterior Bilateral] Blood Pressure 105/65 101/64 103/66 O2 Sat by Pulse 95 95 97 Oximetry 11/15/21 11/15/21 11/15/21 07:00 07:15 07:30 Temperature Pulse Rate 108 H 108 H 106 H Pulse Rate [ Anterior Bilateral] Respiratory 17 18 17 Rate Respiratory Rate [Anterior Bilateral] Blood Pressure 97/66 101/65 106/64 O2 Sat by Pulse 97 97 96 Oximetry 11/15/21 11/15/21 11/15/21 07:45 08:00 08:05 Temperature 97.3 F L Pulse Rate 107 H 108 H Pulse Rate [ Anterior Bilateral] Respiratory 20 20 Rate Respiratory Rate [Anterior Bilateral] Blood Pressure 108/65 100/67 O2 Sat by Pulse 97 97 Oximetry 11/15/21 11/15/21 11/15/21 08:15 08:28 11:45 Temperature 98.6 F Pulse Rate 110 H Pulse Rate [ 105 H Anterior Bilateral] Respiratory 21 Rate Respiratory 20 Rate [Anterior Bilateral] Blood Pressure 108/65 O2 Sat by Pulse 97 96 Oximetry Constitutional: no acute distress, alert Neck: supple Effort: normal Ascultation: Bilateral: clear CBC and BMP: 11/15/21 04:00 11/15/21 04:00 ABG, PT/INR, D-dimer: ABG ABG pH 7.384 pH Units (7.350-7.450) 11/14/21 03:45 ABG pCO2 35.5 mm Hg 11/14/21 03:45 ABG pO2 112.8 mm Hg (80.0-90.0) H 11/14/21 03:45 ABG O2 Saturation 98.1 % (95.0-99.0) 11/14/21 03:45 PT/INR, D-dimer PT 16.9 Sec. (12.2-14.9) H 11/13/21 09:03 INR 1.20 (0.87-1.13) H 11/13/21 09:03 Abnormal lab findings: Abnormal Labs 11/13/21 11/13/21 11/13/21 09:03 09:03 09:03 WBC 19.5 H RBC 2.74 L Hgb 6.2 L Hct 20.0 L MCV 73 L MCH 23 L MCHC 31 L RDW 20.9 H Plt Count 656 H Seg Neuts % (Manual) 97.0 H Lymphocytes % (Manual) 1.0 L Nucleated RBC % Seg Neutrophils # Man 18.9 H Lymphocytes # (Manual) 0.2 L PT 16.9 H INR 1.20 H ABG pO2 ABG O2 Saturation ABG Base Excess ABG Hemoglobin Sodium Potassium Chloride Carbon Dioxide 21 L BUN 45 H Creatinine 0.7 L Glucose 173 H POC Glucose Calcium Phosphorus Iron TIBC Troponin T NT-Pro-B Natriuret Pep 1118 H Total Protein Albumin 2.5 L HDL Cholesterol Urine Blood Urine WBC (Auto) Crossmatch 11/13/21 11/13/21 11/13/21 09:08 10:22 11:12 WBC RBC Hgb Hct MCV MCH MCHC RDW Plt Count Seg Neuts % (Manual) Lymphocytes % (Manual) Nucleated RBC % Seg Neutrophils # Man Lymphocytes # (Manual) PT INR ABG pO2 284.1 H ABG O2 Saturation 99.5 H ABG Base Excess ABG Hemoglobin 6.2 L Sodium Potassium Chloride Carbon Dioxide BUN Creatinine Glucose POC Glucose Calcium Phosphorus Iron TIBC Troponin T NT-Pro-B Natriuret Pep Total Protein Albumin HDL Cholesterol Urine Blood Large A Urine WBC (Auto) > 182.0 H Crossmatch See Detail 11/13/21 11/14/21 11/14/21 11:33 03:45 05:30 WBC 26.0 H RBC 2.79 L Hgb 6.4 L Hct 21.2 L MCV 76 L MCH 23 L MCHC 30 L RDW 21.1 H Plt Count 535 H Seg Neuts % (Manual) 100.0 H Lymphocytes % (Manual) 0 L Nucleated RBC % 1.0 H Seg Neutrophils # Man 26.0 H Lymphocytes # (Manual) 0.0 L PT INR ABG pO2 112.8 H ABG O2 Saturation ABG Base Excess -4.0 L ABG Hemoglobin 6.6 L Sodium Potassium Chloride Carbon Dioxide BUN Creatinine Glucose POC Glucose Calcium Phosphorus Iron TIBC Troponin T 0.050 H NT-Pro-B Natriuret Pep Total Protein Albumin HDL Cholesterol 28 L Urine Blood Urine WBC (Auto) Crossmatch 11/14/21 11/14/21 11/14/21 05:30 16:42 17:59 WBC RBC Hgb 8.3 L 8.3 L Hct 26.1 L 27.0 L MCV MCH MCHC RDW Plt Count Seg Neuts % (Manual) Lymphocytes % (Manual) Nucleated RBC % Seg Neutrophils # Man Lymphocytes # (Manual) PT INR ABG pO2 ABG O2 Saturation ABG Base Excess ABG Hemoglobin Sodium Potassium Chloride 109.3 H Carbon Dioxide 20 L BUN 35 H Creatinine 0.5 L Glucose 149 H POC Glucose Calcium 7.9 L Phosphorus Iron TIBC Troponin T NT-Pro-B Natriuret Pep Total Protein 6.2 L Albumin 2.1 L HDL Cholesterol Urine Blood Urine WBC (Auto) Crossmatch 11/14/21 11/15/21 11/15/21 17:59 00:00 04:00 WBC 15.6 H RBC 3.12 L Hgb 7.8 L 7.7 L Hct 24.7 L 24.6 L MCV 79 L MCH 25 L MCHC 31 L RDW 21.4 H Plt Count Seg Neuts % (Manual) Lymphocytes % (Manual) Nucleated RBC % Seg Neutrophils # Man Lymphocytes # (Manual) PT INR ABG pO2 ABG O2 Saturation ABG Base Excess ABG Hemoglobin Sodium Potassium Chloride Carbon Dioxide BUN Creatinine Glucose POC Glucose Calcium Phosphorus Iron 9 L TIBC 155 L Troponin T NT-Pro-B Natriuret Pep Total Protein Albumin HDL Cholesterol Urine Blood Urine WBC (Auto) Crossmatch 11/15/21 11/15/21 04:00 11:20 WBC RBC Hgb Hct MCV MCH MCHC RDW Plt Count Seg Neuts % (Manual) Lymphocytes % (Manual) Nucleated RBC % Seg Neutrophils # Man Lymphocytes # (Manual) PT INR ABG pO2 ABG O2 Saturation ABG Base Excess ABG Hemoglobin Sodium 147 H Potassium 3.1 L D Chloride 113.8 H Carbon Dioxide 21 L BUN 23 H Creatinine 0.4 L Glucose 101 H POC Glucose 67 L Calcium 8.0 L Phosphorus 1.80 L Iron TIBC Troponin T NT-Pro-B Natriuret Pep Total Protein Albumin HDL Cholesterol Urine Blood Urine WBC (Auto) Crossmatch
[2021-11-15] MEDS ORDERED: DEXTROSE 50% IN WATER (25GM) 50 ML SYRINGE IV PRN (12:05)
--- NOTE | 2021-11-15 12:16 | Progress Note ---
Assessment and Plan 1. Fecal impactiondisimpacted and cleared with the [facility].. Patient needs to be on a better bowel regimen at the [facility] to ensure that he is having bowel movements at least 3 times a week. As outpatient, bowel regimen with MiraLAX or suppositories to ensure BMs at least 3 times a week. 2. Anemiathis is chronic. Patient has known history of peptic ulcer disease and should be on pantoprazole daily. Will check iron studies, as patient may well have multifactorial anemia with anemia of chronic diseases as well. Daily PPI Check iron studies and B12 Monitor hemoglobin and transfuse as needed 3. Malnutrition/aspirationspoke with patient about evaluation for feeding tube placement. Patient has decided to proceed with G-tube placement if appropriate. -obtain a modified barium swallow to check for aspiration, and then if appropriate, G-tube placement. Subjective Date of service: 11/15/21 Interval history: Patient had good results from [facility] yesterday. No other specific complaints. Want something to drink. Objective - Constitutional Vitals: Vital Signs - 12hr 11/15/21 11/15/21 11/15/21 00:15 00:30 00:45 Temperature Pulse Rate 108 H 107 H 109 H Pulse Rate [ Anterior Bilateral] Respiratory 15 17 17 Rate Respiratory Rate [Anterior Bilateral] Blood Pressure 100/62 97/55 88/59 O2 Sat by Pulse 99 99 99 Oximetry 11/15/21 11/15/21 11/15/21 01:00 01:15 01:30 Temperature Pulse Rate 108 H 106 H 107 H Pulse Rate [ Anterior Bilateral] Respiratory 17 16 17 Rate Respiratory Rate [Anterior Bilateral] Blood Pressure 96/55 102/63 97/65 O2 Sat by Pulse 99 99 95 Oximetry 11/15/21 11/15/21 11/15/21 01:45 02:00 02:15 Temperature Pulse Rate 107 H 112 H 106 H Pulse Rate [ Anterior Bilateral] Respiratory 20 20 21 Rate Respiratory Rate [Anterior Bilateral] Blood Pressure 96/63 83/62 105/71 O2 Sat by Pulse 97 97 96 Oximetry 11/15/21 11/15/21 11/15/21 02:30 02:45 03:00 Temperature Pulse Rate 107 H 103 H 102 H Pulse Rate [ Anterior Bilateral] Respiratory 19 17 19 Rate Respiratory Rate [Anterior Bilateral] Blood Pressure 105/71 107/64 106/63 O2 Sat by Pulse 97 97 Oximetry 11/15/21 11/15/21 11/15/21 03:15 03:30 03:40 Temperature 98.2 F Pulse Rate 108 H 104 H Pulse Rate [ Anterior Bilateral] Respiratory 18 19 Rate Respiratory Rate [Anterior Bilateral] Blood Pressure 110/72 109/67 O2 Sat by Pulse 91 Oximetry 11/15/21 11/15/21 11/15/21 03:45 04:00 04:15 Temperature Pulse Rate 103 H 108 H 106 H Pulse Rate [ Anterior Bilateral] Respiratory 18 22 21 Rate Respiratory Rate [Anterior Bilateral] Blood Pressure 101/59 114/73 92/44 O2 Sat by Pulse 99 96 97 Oximetry 11/15/21 11/15/21 11/15/21 04:30 04:45 05:00 Temperature Pulse Rate 105 H 104 H 104 H Pulse Rate [ Anterior Bilateral] Respiratory 18 18 17 Rate Respiratory Rate [Anterior Bilateral] Blood Pressure 103/69 112/70 115/67 O2 Sat by Pulse 95 97 97 Oximetry 11/15/21 11/15/21 11/15/21 05:15 05:30 05:45 Temperature Pulse Rate 105 H 108 H 108 H Pulse Rate [ Anterior Bilateral] Respiratory 16 13 18 Rate Respiratory Rate [Anterior Bilateral] Blood Pressure 105/67 107/69 110/66 O2 Sat by Pulse 96 86 94 Oximetry 11/15/21 11/15/21 11/15/21 06:00 06:15 06:30 Temperature Pulse Rate 109 H 110 H 106 H Pulse Rate [ Anterior Bilateral] Respiratory 19 21 17 Rate Respiratory Rate [Anterior Bilateral] Blood Pressure 104/67 105/65 101/64 O2 Sat by Pulse 93 95 95 Oximetry 11/15/21 11/15/21 11/15/21 06:45 07:00 07:15 Temperature Pulse Rate 106 H 108 H 108 H Pulse Rate [ Anterior Bilateral] Respiratory 17 17 18 Rate Respiratory Rate [Anterior Bilateral] Blood Pressure 103/66 97/66 101/65 O2 Sat by Pulse 97 97 97 Oximetry 11/15/21 11/15/21 11/15/21 07:30 07:45 08:00 Temperature Pulse Rate 106 H 107 H 108 H Pulse Rate [ Anterior Bilateral] Respiratory 17 20 20 Rate Respiratory Rate [Anterior Bilateral] Blood Pressure 106/64 108/65 100/67 O2 Sat by Pulse 96 97 97 Oximetry 11/15/21 11/15/21 11/15/21 08:05 08:15 08:28 Temperature 97.3 F L Pulse Rate 110 H Pulse Rate [ 105 H Anterior Bilateral] Respiratory 21 Rate Respiratory 20 Rate [Anterior Bilateral] Blood Pressure 108/65 O2 Sat by Pulse 97 96 Oximetry 11/15/21 11/15/21 11:45 12:00 Temperature 98.6 F Pulse Rate Pulse Rate [ 114 H Anterior Bilateral] Respiratory Rate Respiratory 20 Rate [Anterior Bilateral] Blood Pressure O2 Sat by Pulse Oximetry General appearance: Present: no acute distress, cachectic - EENT Eyes: PERRL, EOM intact ENT: hearing intact - Respiratory Respiratory effort: normal, other (With upper airway gurgles) - Gastrointestinal General gastrointestinal: Present: soft, non-tender - Labs CBC & Chem 7: 11/15/21 04:00 11/15/21 04:00 Labs: Abnormal lab results 11/13/21 11/14/21 11/14/21 Range/Units 09:08 16:42 17:59 WBC (4.5-11.0) K/mm3 RBC (3.65-5.03) M/mm3 Hgb 8.3 L 8.3 L (11.8-15.2) gm/dl Hct 26.1 L 27.0 L (35.5-45.6) % MCV (84-94) fl MCH (28-32) pg MCHC (32-34) % RDW (13.2-15.2) % Sodium (137-145) mmol/L Potassium (3.6-5.0) mmol/L Chloride (98-107) mmol/L Carbon Dioxide (22-30) mmol/L BUN (9-20) mg/dL Creatinine (0.8-1.3) mg/dL Glucose (75-100) mg/dL POC Glucose (70-105) mg/dL Calcium (8.4-10.2) mg/dL Phosphorus (2.5-4.5) mg/dL Iron (49-181) ug/dL TIBC (250-450) mcg/dL Crossmatch See Detail 11/14/21 11/15/21 11/15/21 Range/Units 17:59 00:00 04:00 WBC 15.6 H (4.5-11.0) K/mm3 RBC 3.12 L (3.65-5.03) M/mm3 Hgb 7.8 L 7.7 L (11.8-15.2) gm/dl Hct 24.7 L 24.6 L (35.5-45.6) % MCV 79 L (84-94) fl MCH 25 L (28-32) pg MCHC 31 L (32-34) % RDW 21.4 H (13.2-15.2) % Sodium (137-145) mmol/L Potassium (3.6-5.0) mmol/L Chloride (98-107) mmol/L Carbon Dioxide (22-30) mmol/L BUN (9-20) mg/dL Creatinine (0.8-1.3) mg/dL Glucose (75-100) mg/dL POC Glucose (70-105) mg/dL Calcium (8.4-10.2) mg/dL Phosphorus (2.5-4.5) mg/dL Iron 9 L (49-181) ug/dL TIBC 155 L (250-450) mcg/dL Crossmatch 11/15/21 11/15/21 Range/Units 04:00 11:20 WBC (4.5-11.0) K/mm3 RBC (3.65-5.03) M/mm3 Hgb (11.8-15.2) gm/dl Hct (35.5-45.6) % MCV (84-94) fl MCH (28-32) pg MCHC (32-34) % RDW (13.2-15.2) % Sodium 147 H (137-145) mmol/L Potassium 3.1 L D (3.6-5.0) mmol/L Chloride 113.8 H (98-107) mmol/L Carbon Dioxide 21 L (22-30) mmol/L BUN 23 H (9-20) mg/dL Creatinine 0.4 L (0.8-1.3) mg/dL Glucose 101 H (75-100) mg/dL POC Glucose 67 L (70-105) mg/dL Calcium 8.0 L (8.4-10.2) mg/dL Phosphorus 1.80 L (2.5-4.5) mg/dL Iron (49-181) ug/dL TIBC (250-450) mcg/dL Crossmatch Medications & Allergies - Medications Allergies/Adverse Reactions: Allergies carbamazepine [From Tegretol] Allergy (Verified 08/14/21 06:58) Itching ketorolac tromethamine [From Toradol] Allergy (Verified 08/14/21 06:58) Itching tramadol Allergy (Verified 08/14/21 06:58) Itching hydromorphone Adverse Reaction (Verified 08/14/21 06:58) Unknown ketorolac [From Toradol] Adverse Reaction (Verified 08/14/21 06:58) Unknown meperidine Adverse Reaction (Verified 08/14/21 06:58) Unknown Home Medications: Home Medications Medication Instructions Recorded Confirmed Last Taken Type Albuterol Mdi (or & Nicu Only) 2 puff IH QID PRN 12/20/13 09/10/16 04/14/15 History [ProAir HFA Inhaler] polyethylene glycoL 3350 [Miralax 17 gm PO QDAY 12/22/14 09/11/16 04/14/15 History 3350] Ascorbic Acid [Vitamin C] 500 mg PO QDAY 05/04/15 09/11/16 Unknown History Multivit with Iron,Minerals 1 each PO QAM 05/04/15 09/11/16 Unknown History [Spectravite Senior] Sennosides/Docusate Sodium 2 each PO QHS 05/04/15 09/11/16 Unknown History [Senna-S Tablet] Pregabalin [Lyrica] 100 mg PO BID 01/15/16 09/11/16 Unknown History Protein Supplement [Promod] 30 ml PO TID 01/15/16 09/11/16 Unknown History carisoprodoL [Soma] 350 mg PO TID PRN 01/15/16 09/11/16 Unknown History guaiFENesin [Guaifenesin ER] 1,200 mg PO Q12H PRN 01/15/16 09/11/16 Unknown History Acetaminophen [Acetaminophen TAB] 650 mg PO Q4H PRN 09/10/16 09/10/16 Unknown History Baclofen 20 mg PO TID PRN 09/10/16 09/10/16 Unknown History Diazepam [Valium] 10 mg PO Q6H PRN 09/11/16 09/11/16 Unknown History Furosemide [Lasix TAB] 1 tab PO BID PRN 09/11/16 09/11/16 Unknown History Mirtazapine [Remeron] 15 mg PO QHS 09/11/16 09/11/16 Unknown History [place]-3/Dha/Epa/Fish Oil [[place] 3 1,000 mg PO BID 09/11/16 09/11/16 Unknown History 500 Softgel] Potassium Chloride [K-Tab ER] 1 tab PO QDAY 09/11/16 09/11/16 Unknown History Warfarin Sodium [Coumadin] 4 mg PO QPM 09/11/16 09/11/16 Unknown History Ciprofloxacin HCl [Cipro] 500 mg PO BID #14 tablet 05/24/17 Unknown Rx Ascorbic Acid [Vitamin C] 500 mg PO BID 02/04/20 02/14/20 Unknown History Dextran 70/Hypromellose 1 each OP DAILY 02/04/20 02/14/20 Unknown History [Artificial Tears] Ferrous Sulfate [Feosol 325 MG tab] 325 mg PO BID 02/04/20 02/14/20 Unknown History Mirtazapine 7.5 mg PO QHS 02/04/20 02/14/20 Unknown History Pregabalin [Lyrica] 100 mg PO BID 02/04/20 02/14/20 Unknown History Protein Supplement [Promod] 30 ml PO TID 02/04/20 02/14/20 Unknown History Warfarin [Coumadin] 5 mg PO QDAY 02/04/20 02/14/20 Unknown History fentaNYL [Fentanyl] 1 each TD DAILY 02/04/20 02/14/20 Unknown History Pantoprazole [Protonix TAB] 40 mg PO BIDAC #60 tablet 02/18/20 Unknown Rx Vancomycin 125 mg PO Q6HR 10 Days 02/18/20 Unknown Rx Cefepime 1 gm IV Q24H 7 Days vial 02/23/21 Unknown Rx Active Medications: Generic Name Dose Route Start Last Admin Trade Name Freq PRN Reason Stop Dose Admin Acetaminophen 650 mg 11/13/21 13:07 Acetaminophen 650 Mg Rect Supp MS Q6H PRN Pain MILD(1-3)/Fever >100.5/CHIU Acetaminophen 650 mg 11/14/21 16:41 Acetaminophen 325 Mg Tab FEEDTUBE Q4H PRN Pain MILD(1-3)/Fever >100.5/CHIU Albuterol 2.5 mg 11/14/21 20:00 Albuterol 2.5 Mg/3 Ml Nebu IH QIDRT PRN Shortness Of Breath Albuterol/Ipratropium 1 ampul 11/14/21 08:00 11/15/21 12:00 Ipratropium/Albuterol Sulfate 3 Ml Ampul.Neb IH 1 ampul QIDRT YE Administration Artificial Tears 1 drops 11/15/21 10:00 11/15/21 09:31 Hypromellose 0.5% Ophth Soln 15 Ml OU 1 drops QDAY YE Administration Ascorbic Acid 500 mg 11/15/21 10:00 11/15/21 09:32 Ascorbic Acid 500 Mg Tab FEEDTUBE 500 mg QDAY YE Administration Dextrose 50 ml 11/15/21 12:05 Dextrose 50% In Water (25gm) 50 Ml Syringe IV Q30MIN PRN Hypoglycemia Protocol Docusate Sodium 100 mg 11/14/21 11:00 11/15/21 09:34 Docusate Sodium 100 Mg/10 Ml Oral Liqd FEEDTUBE Not Given BID YE Ferrous Sulfate 300 mg 11/15/21 10:00 11/15/21 09:31 Ferrous Sulfate 300 Mg (60mg Elemental Iron) / 5 Ml Oral Liqd PO 300 mg QDAY YE Administration Fish Oil 1,000 mg 11/14/21 22:00 11/15/21 09:33 [place]-3 Fatty Acids/Fish Oil 1 Gram Cap PO 1,000 mg BID YE Administration NORepinephrine/NS 8 MG-250 ML 8 mg in 250 mls @ 3.75 mls/hr 11/13/21 09:30 11/15/21 05:03 Norepinephrine/Ns 8 Mg-250 Ml (Double Conc) IV 0 mcg/min TITRATE YE 0 mls/hr Titration Protocol 2 MCG/MIN Sodium Chloride 1,000 mls @ 125 mls/hr 11/13/21 21:30 11/15/21 02:42 Nacl 0.9% 1000 Ml IV 125 mls/hr DIRECT YE Administration Cefepime HCl 2 gm in 100 mls @ 200 mls/hr 11/13/21 22:00 11/15/21 05:01 Cefepime/Ns 2 Gm/100 Ml IV 200 mls/hr Q8H YE Administration Protocol Vancomycin HCl 1 gm in 250 mls @ 250 mls/hr 11/14/21 06:00 11/15/21 05:33 Vancomycin/Ns 1 Gm/250 Ml IV 250 mls/hr Q12H YE Administration Vasopressin 20 unit/ Sodium 101 mls @ 9.09 mls/hr 11/14/21 09:00 Chloride IV TITR YE Protocol 0.03 UNITS/MIN Potassium Phosphate 45 mmol/ 515 mls @ 85 mls/hr 11/15/21 09:00 11/15/21 09:31 Sodium Chloride IV 11/15/21 15:03 85 mls/hr ONCE ONE Administration Lansoprazole 30 mg 11/15/21 10:00 11/15/21 09:32 Lansoprazole 30 Mg Solutab FEEDTUBE 30 mg QDAY YE Administration Metoclopramide HCl 10 mg 11/13/21 21:18 Metoclopramide 10 Mg/2 Ml Inj IV Q6H PRN Nausea And Vomiting Morphine Sulfate 2 mg 11/13/21 13:11 Morphine 2 Mg/1 Ml Inj IV Q4H PRN Pain, Moderate (4-6) Multivitamins/Minerals 1 each 11/15/21 10:00 11/15/21 09:32 Multivitamins,Ther W-Minerals Tab PO 1 each QDAY YE Administration Ondansetron HCl 4 mg 11/13/21 21:18 Ondansetron 4 Mg/2 Ml Inj IV Q3H PRN Nausea And Vomiting Polyethylene Glycol 17 gm 11/15/21 10:00 11/15/21 09:31 Polyethylene Glycol 3350 17 Gm Powder FEEDTUBE 17 gm QDAY YE Administration Senna 17.2 mg 11/14/21 11:00 11/15/21 09:34 Sennosides 8.6 Mg Tab FEEDTUBE Not Given BID YE Sodium Chloride 10 ml 11/13/21 22:00 11/15/21 09:32 Sodium Chloride 0.9% 10 Ml Flush Syringe IV 10 ml BID YE Administration Sodium Chloride 10 ml 11/13/21 21:18 Sodium Chloride 0.9% 10 Ml Flush Syringe IV PRN PRN LINE FLUSH HEART Score - HEART Score Troponin: Troponin T 0.050 ng/mL (0.00-0.029) H 11/13/21 11:33
[2021-11-15] MEDS: DEXTROSE 50% IN WATER (25GM) 50 ML SYRINGE IV PRN ×3 (12:51→20:38)
--- NOTE | 2021-11-15 13:22 | Progress Note ---
<CRUZKENDALL LorenaBen - Last Filed: 11/15/21 13:24> Assessment and Plan Assessment and plan: This is a 66-year-old female with paraplegia, HTN, DM, DVT s/p Herlinda filter, GERD, asthma, dementia, MS, depression, FIT, chronic constipation and dysphagia admitted with sepsis, symptomatic anemia and acute hypoxic respiratory failure Neuro:h/o dementia, MS, paraplegia, depression -Sedation stopped by day RN -Reorientation as needed -Maintain sleep-wake cycle -Aspiration precautions -As needed analgesia -Hold home baclofen, soma, diazepam, fentanyl patch, remeron, lyrica for now -likely restart in AM Cardiac: Hypotension, h/o HTN -Cardiology consulted, appreciate recommendations -Blood pressure monitoring per protocol -Vasopressor support with levophed, vaso if needed -MAP goal greater than 65 -02/22/2021 echocardiogram shows LVEF 50% Respiratory: Acute hypoxic respiratory failure, h/o asthma -CCM consulted, appreciate recommendations -Intubated on 11/13 with 7.5 OETT at 23 at the lips and extubated 11/14 -Supplemental oxygen as needed -Currently on room air -Pulmonary hygiene -SPO2 monitoring per protocol GI: GIB, h/o dysphagia, GERD, chronic constipation, Failure to thrive -Per RN note patient had projectile vomiting in mcc per EMS report -GI consulted, appreciate recommendations -s/p Protonix gtt -Restarted on lansoprazole -KUB shows severe constipation -NGT -Gastric aspirate occult positive -BR: Senokot S, Colace, MiraLAX, Dulcolax suppository -Patient was digitally disimpacted by GI 11/14 -s/p GoLytely -Modified barium swallow pending to evaluate appropriateness for PEG : h/o suprapubic catheter -Monitor intake and output -Renally dose medications -Avoid nephrotoxic medications -Trend BMP ID: Septic shock -Presented with leukocytosis, hypotension, dirty UA, multiple decubitus ulcers scattered on body -S/p 2 L normal saline bolus in the ED, 1 L LR bolus in the ICU -Antibiotic therapy with cefepime and vancomycin -f/u blood culture and urine culture -UA noted -Monitor WBC and temperature curve Endo: h/o DM -Avoid hypoglycemia -SSI -Accu-Cheks q. every 6 Heme: Symptomatic anemia, r/o DVT s/p Herlinda filter -Presented with H/H of 6.2/20.0 -S/p 1 unit PRBC -H/H 6.4/21.2 -2 unit PRBC -Obtain H/H 2 hours post transfusion -Hold home warfarin -Avoid chemical anticoagulation in setting of severe anemia -q6hr H/H -Trend CBC -Transfuse hemoglobin less than 7 -SCDs to BLE while in bed The high probability of a clinically significant, sudden or life threatening deterioration of the [multi] system(s) required my full and direct attention, intervention and personal management. The aggregate critical care time was [60] minutes. This time is in addition to time spent performing reported procedures but includes the following: [x] Data Review and interpretation [x] Patient assessment and monitoring of vital signs [x] Documentation [x] Medication orders and management Disposition Plan: transfer to floor Total Time Spent with Patient (Minutes): 60 History Interval history: This is a 66 year old male who is a paraplegic, HTN, DM, DVT s/p Herlinda filter, GERD, asthma, dementia, MS, depression, UTI, Adult failure to thrive, suprapubic catheter, chronic constipation and dysphagia who presented to emergency department on 11/13 from his [facility] with increasing shortness of breath. In the emergency department patient received IV hydration per sepsis protocol for hypotension and tachycardia and started on Levophed and he was hypoxic and was placed in nonrebreather. Patient was intubated for respiratory distress. He was also started on antibiotics and CXR showed left pleural effusion. Work-up in the ED also showed leukocytosis and anemia with a hemog lobin of 6.2 and hematocrit of 20 and 1 unit PRBC was ordered. Patient was admitted to the hospitalist service with consults to [facility] with acute hypoxic respiratory failure, symptomatic anemia, sepsis. Hospital course to date: 11/14: H/H did not respond adequately to PRBC and we ordered to 1 unit of PRBC. Was on high-dose Levophed and vasopressin was ordered. 1 L LR bolus. Patient was started on bowel regimen, urine culture was sent. Sitter was discontinued. Patient will be on every 6 H&H and n.p.o. for now however will get meds through Dobbhoff tube. GI was consulted who digitally disimpacted the patient at bedside. Gastric occult positive. 11/15: Patient received GoLytely yesterday evening and has had multiple bowel movements. Patient has agreed to PEG placement and will receive a modified barium swallow to evaluate appropriateness for PEG tube. Patient transferred to the floor. Repleted potassium and phosphate. Hospitalist Physical - Constitutional Vitals: Temp Pulse Resp BP Pulse Ox 98.6 F 114 H 20 108/65 96 11/15/21 11:45 11/15/21 12:00 11/15/21 12:00 11/15/21 08:15 11/15/21 08:28 General appearance: Present: no acute distress, cachectic - EENT Eyes: Present: PERRL, EOM intact ENT: poor dentition - Neck Neck: Absent: masses or JVD, cervical LAD - Respiratory Respiratory effort: normal Respiratory: bilateral: diminished - Cardiovascular Rhythm: regular Heart Sounds: Present: S1 & S2. Absent: systolic murmur, diastolic murmur - Extremities Extremities: no ischemia, pulses intact, pulses symmetrical, normal temperature, normal color Peripheral Pulses: within normal limits - Abdominal General gastrointestinal: soft, non-tender, non-distended, normal bowel sounds - Integumentary Integumentary: Present: dry - Psychiatric Psychiatric: cooperative - Neurologic Neurologic: other (To hold conversation, intact cough/gag, pupils equal and reactive. Paraplegic from MS) HEART Score - HEART Score Troponin: Troponin T 0.050 ng/mL (0.00-0.029) H 11/13/21 11:33 Results - Labs CBC & Chem 7: 11/15/21 04:00 11/15/21 04:00 Labs: Laboratory Last Values WBC 15.6 K/mm3 (4.5-11.0) H 11/15/21 04:00 RBC 3.12 M/mm3 (3.65-5.03) L 11/15/21 04:00 Hgb 7.7 gm/dl (11.8-15.2) L 11/15/21 04:00 Hct 24.6 % (35.5-45.6) L 11/15/21 04:00 MCV 79 fl (84-94) L 11/15/21 04:00 MCH 25 pg (28-32) L 11/15/21 04:00 MCHC 31 % (32-34) L 11/15/21 04:00 RDW 21.4 % (13.2-15.2) H 11/15/21 04:00 Plt Count 344 K/mm3 (140-440) 11/15/21 04:00 Add Manual Diff Complete 11/14/21 05:30 Total Counted 100 11/14/21 05:30 Seg Neutrophils % Quill Winder 11/14/21 05:30 Seg Neuts % (Manual) 100.0 % (40.0-70.0) H 11/14/21 05:30 Band Neutrophils % 0 % 11/14/21 05:30 Lymphocytes % (Manual) 0 % (13.4-35.0) L 11/14/21 05:30 Reactive Lymphs % (Man) 0 % 11/14/21 05:30 Monocytes % (Manual) 0 % (0.0-7.3) 11/14/21 05:30 Eosinophils % (Manual) 0 % (0.0-4.3) 11/14/21 05:30 Basophils % (Manual) 0 % (0.0-1.8) 11/14/21 05:30 Metamyelocytes % 0 % 11/14/21 05:30 Myelocytes % 0 % 11/14/21 05:30 Promyelocytes % 0 % 11/14/21 05:30 Blast Cells % 0 % 11/14/21 05:30 Nucleated RBC % 1.0 % (0.0-0.9) H 11/14/21 05:30 Seg Neutrophils # Man 26.0 K/mm3 (1.8-7.7) H 11/14/21 05:30 Band Neutrophils # 0.0 K/mm3 11/14/21 05:30 Lymphocytes # (Manual) 0.0 K/mm3 (1.2-5.4) L 11/14/21 05:30 Abs React Lymphs (Man) 0.0 K/mm3 11/14/21 05:30 Monocytes # (Manual) 0.0 K/mm3 (0.0-0.8) 11/14/21 05:30 Eosinophils # (Manual) 0.0 K/mm3 (0.0-0.4) 11/14/21 05:30 Basophils # (Manual) 0.0 K/mm3 (0.0-0.1) 11/14/21 05:30 Metamyelocytes # 0.0 K/mm3 11/14/21 05:30 Myelocytes # 0.0 K/mm3 11/14/21 05:30 Promyelocytes # 0.0 K/mm3 11/14/21 05:30 Blast Cells # 0.0 K/mm3 11/14/21 05:30 WBC Morphology Not Reportable 11/14/21 05:30 Hypersegmented Neuts Not Reportable 11/14/21 05:30 Hyposegmented Neuts Not Reportable 11/14/21 05:30 Hypogranular Neuts Not Reportable 11/14/21 05:30 Smudge Cells Not Reportable 11/14/21 05:30 Toxic Granulation Not Reportable 11/14/21 05:30 Toxic Vacuolation Not Reportable 11/14/21 05:30 Dohle Bodies Not Reportable 11/14/21 05:30 Pelger-Huet Anomaly Not Reportable 11/14/21 05:30 Agata Rods Not Reportable 11/14/21 05:30 Platelet Estimate Consistent w auto 11/14/21 05:30 Clumped Platelets Not Reportable 11/14/21 05:30 Plt Clumps, EDTA Not Reportable 11/14/21 05:30 Large Platelets Not Reportable 11/14/21 05:30 Giant Platelets Not Reportable 11/14/21 05:30 Platelet Satelliting Not Reportable 11/14/21 05:30 Plt Morphology Comment Not Reportable 11/14/21 05:30 RBC Morphology Not Reportable 11/14/21 05:30 Dimorphic RBCs Not Reportable 11/14/21 05:30 Polychromasia Not Reportable 11/14/21 05:30 Hypochromasia 1+ 11/14/21 05:30 Poikilocytosis Not Reportable 11/14/21 05:30 Anisocytosis 1+ 11/14/21 05:30 Microcytosis Not Reportable 11/14/21 05:30 Macrocytosis Not Reportable 11/14/21 05:30 Spherocytes Not Reportable 11/14/21 05:30 Pappenheimer Bodies Not Reportable 11/14/21 05:30 Sickle Cells Not Reportable 11/14/21 05:30 Target Cells Not Reportable 11/14/21 05:30 Tear Drop Cells Not Reportable 11/14/21 05:30 Ovalocytes Few 11/14/21 05:30 Helmet Cells Not Reportable 11/14/21 05:30 [place] Bodies Not Reportable 11/14/21 05:30 [place] Rings Not Reportable 11/14/21 05:30 Ishan Cells Not Reportable 11/14/21 05:30 Bite Cells Not Reportable 11/14/21 05:30 Crenated Cell Not Reportable 11/14/21 05:30 Elliptocytes Not Reportable 11/14/21 05:30 Acanthocytes (Spur) Not Reportable 11/14/21 05:30 Rouleaux Not Reportable 11/14/21 05:30 Hemoglobin C Crystals Not Reportable 11/14/21 05:30 Schistocytes Not Reportable 11/14/21 05:30 Malaria parasites Not Reportable 11/14/21 05:30 Joshua Bodies Not Reportable 11/14/21 05:30 Hem Pathologist Commnt No 11/14/21 05:30 PT 16.9 Sec. (12.2-14.9) H 11/13/21 09:03 INR 1.20 (0.87-1.13) H 11/13/21 09:03 APTT 32.0 Sec. (24.2-36.6) 11/13/21 09:03 ABG pH 7.384 pH Units (7.350-7.450) 11/14/21 03:45 ABG pCO2 35.5 mm Hg 11/14/21 03:45 ABG pO2 112.8 mm Hg (80.0-90.0) H 11/14/21 03:45 ABG HCO3 20.7 mmol/L (20.0-26.0) 11/14/21 03:45 ABG O2 Saturation 98.1 % (95.0-99.0) 11/14/21 03:45 ABG O2 Content 9.1 (0.0-44) 11/14/21 03:45 ABG Base Excess -4.0 mmol/L (-2.0-3.0) L 11/14/21 03:45 ABG Hemoglobin 6.6 gm/dl (14.0-18.0) L 11/14/21 03:45 ABG Carboxyhemoglobin 1.7 % (0.0-5.0) 11/14/21 03:45 ABG Methemoglobin 0.6 % (0.0-1.5) 11/14/21 03:45 Oxyhemoglobin 95.8 % (95.0-99.0) 11/14/21 03:45 FiO2 40 % 11/14/21 03:45 Sodium 147 mmol/L (137-145) H 11/15/21 04:00 Potassium 3.1 mmol/L (3.6-5.0) L D 11/15/21 04:00 Chloride 113.8 mmol/L (98-107) H 11/15/21 04:00 Carbon Dioxide 21 mmol/L (22-30) L 11/15/21 04:00 Anion Gap 15 mmol/L 11/15/21 04:00 BUN 23 mg/dL (9-20) H 11/15/21 04:00 Creatinine 0.4 mg/dL (0.8-1.3) L 11/15/21 04:00 Estimated GFR > 60 ml/min 11/15/21 04:00 BUN/Creatinine Ratio 58 % 11/15/21 04:00 Glucose 101 mg/dL (75-100) H 11/15/21 04:00 POC Glucose 67 mg/dL (70-105) L 11/15/21 11:20 Calcium 8.0 mg/dL (8.4-10.2) L 11/15/21 04:00 Phosphorus 1.80 mg/dL (2.5-4.5) L 11/15/21 04:00 Magnesium 2.00 mg/dL (1.7-2.3) 11/15/21 04:00 Iron 9 ug/dL (49-181) L 11/14/21 17:59 TIBC 155 mcg/dL (250-450) L 11/14/21 17:59 Total Bilirubin 0.30 mg/dL (0.1-1.2) 11/14/21 05:30 AST 14 units/L (5-40) 11/14/21 05:30 ALT 9 units/L (7-56) 11/14/21 05:30 Alkaline Phosphatase 80 units/L (35-129) 11/14/21 05:30 Troponin T 0.050 ng/mL (0.00-0.029) H 11/13/21 11:33 NT-Pro-B Natriuret Pep 1118 pg/mL (0-900) H 11/13/21 09:03 Total Protein 6.2 g/dL (6.3-8.2) L 11/14/21 05:30 Albumin 2.1 g/dL (3.9-5) L 11/14/21 05:30 Albumin/Globulin Ratio 0.5 % 11/14/21 05:30 Triglycerides 96 mg/dL (2-149) 11/13/21 11:33 Cholesterol 115 mg/dL (50-199) 11/13/21 11:33 LDL Cholesterol Direct 61 mg/dL (50-130) 11/13/21 11:33 HDL Cholesterol 28 mg/dL (40-59) L 11/13/21 11:33 Cholesterol/HDL Ratio 4.10 % 11/13/21 11:33 Vitamin B12 483.5 pg/mL (211-911) 11/14/21 17:59 TSH 1.680 mlU/mL (0.270-4.200) 11/13/21 09:03 Free T4 1.27 ng/dL (0.76-1.46) 11/13/21 09:03 Urine Color Yellow (Yellow) 11/13/21 11:12 Urine Turbidity Cloudy (Clear) 11/13/21 11:12 Urine pH 6.0 (5.0-7.0) 11/13/21 11:12 Ur Specific [place] 1.015 (1.003-1.030) 11/13/21 11:12 Urine Protein 100 mg/dl mg/dL (Negative) 11/13/21 11:12 Urine Glucose (UA) Negative mg/dL (Negative) 11/13/21 11:12 Urine Ketones 15 mg/dL (Negative) 11/13/21 11:12 Urine Blood Large (Negative) A 11/13/21 11:12 Urine Nitrite Negative (Negative) 11/13/21 11:12 Urine Bilirubin Negative (Negative) 11/13/21 11:12 Urine Urobilinogen 0.0 mg/dL (<2.0) 11/13/21 11:12 Ur Leukocyte Esterase Moderate (Negative) 11/13/21 11:12 Urine WBC (Auto) > 182.0 /HPF (0.0-6.0) H 11/13/21 11:12 Urine RBC (Auto) > 182.0 /HPF (0.0-6.0) 11/13/21 11:12 Urine Bacteria (Auto) 2+ /HPF (Negative) 11/13/21 11:12 Ur Yeast w [place]pha[place] Few /HPF 11/13/21 11:12 Urine Yeast (Budding) Few /HPF 11/13/21 11:12 Blood Type A POSITIVE 11/13/21 09:08 Antibody Screen Negative 11/13/21 09:08 Crossmatch See Detail 11/13/21 09:08 Microbiology: Microbiology 11/14/21 09:25 Peripheral/Venous Blood Culture - Preliminary NO GROWTH AFTER 24 HOURS 11/14/21 09:25 Peripheral/Venous Blood Culture - Preliminary NO GROWTH AFTER 24 HOURS 11/13/21 09:55 Tracheal Aspirate Sputum Culture - Preliminary 11/14/21 12:31 Gatric Aspirate Gastric Occult Blood - Final [place]/IV: Voiding Method Suprapubic catheter Active Medications - Current Medications Current Medications: Generic Name Dose Route Start Last Admin Trade Name Freq PRN Reason Stop Dose Admin Acetaminophen 650 mg 11/13/21 13:07 Acetaminophen 650 Mg Rect Supp GA Q6H PRN Pain MILD(1-3)/Fever >100.5/CHIU Acetaminophen 650 mg 11/14/21 16:41 Acetaminophen 325 Mg Tab FEEDTUBE Q4H PRN Pain MILD(1-3)/Fever >100.5/CHIU Albuterol 2.5 mg 11/14/21 20:00 Albuterol 2.5 Mg/3 Ml Nebu IH QIDRT PRN Shortness Of Breath Albuterol/Ipratropium 1 ampul 11/14/21 08:00 11/15/21 12:00 Ipratropium/Albuterol Sulfate 3 Ml Ampul.Neb IH 1 ampul QIDRT YE Administration Artificial Tears 1 drops 11/15/21 10:00 11/15/21 09:31 Hypromellose 0.5% Ophth Soln 15 Ml OU 1 drops QDAY YE Administration Ascorbic Acid 500 mg 11/15/21 10:00 11/15/21 09:32 Ascorbic Acid 500 Mg Tab FEEDTUBE 500 mg QDAY YE Administration Dextrose 50 ml 11/15/21 12:05 11/15/21 12:51 Dextrose 50% In Water (25gm) 50 Ml Syringe IV 15 ml Q30MIN PRN Administration Hypoglycemia Protocol Docusate Sodium 100 mg 11/14/21 11:00 11/15/21 09:34 Docusate Sodium 100 Mg/10 Ml Oral Liqd FEEDTUBE Not Given BID YE Ferrous Sulfate 300 mg 11/15/21 10:00 11/15/21 09:31 Ferrous Sulfate 300 Mg (60mg Elemental Iron) / 5 Ml Oral Liqd PO 300 mg QDAY YE Administration Fish Oil 1,000 mg 11/14/21 22:00 11/15/21 09:33 [place]-3 Fatty Acids/Fish Oil 1 Gram Cap PO 1,000 mg BID YE Administration NORepinephrine/NS 8 MG-250 ML 8 mg in 250 mls @ 3.75 mls/hr 11/13/21 09:30 11/15/21 05:03 Norepinephrine/Ns 8 Mg-250 Ml (Double Conc) IV 0 mcg/min TITRATE YE 0 mls/hr Titration Protocol 2 MCG/MIN Sodium Chloride 1,000 mls @ 125 mls/hr 11/13/21 21:30 11/15/21 12:57 Nacl 0.9% 1000 Ml IV 125 mls/hr DIRECT YE Administration Cefepime HCl 2 gm in 100 mls @ 200 mls/hr 11/13/21 22:00 11/15/21 13:02 Cefepime/Ns 2 Gm/100 Ml IV 200 mls/hr Q8H YE Administration Protocol Vancomycin HCl 1 gm in 250 mls @ 250 mls/hr 11/14/21 06:00 11/15/21 05:33 Vancomycin/Ns 1 Gm/250 Ml IV 250 mls/hr Q12H YE Administration Vasopressin 20 unit/ Sodium 101 mls @ 9.09 mls/hr 11/14/21 09:00 Chloride IV TITR EY Protocol 0.03 UNITS/MIN Potassium Phosphate 45 mmol/ 515 mls @ 85 mls/hr 11/15/21 09:00 11/15/21 09:31 Sodium Chloride IV 11/15/21 15:03 85 mls/hr ONCE ONE Administration Lansoprazole 30 mg 11/15/21 10:00 11/15/21 09:32 Lansoprazole 30 Mg Solutab FEEDTUBE 30 mg QDAY YE Administration Metoclopramide HCl 10 mg 11/13/21 21:18 Metoclopramide 10 Mg/2 Ml Inj IV Q6H PRN Nausea And Vomiting Morphine Sulfate 2 mg 11/13/21 13:11 Morphine 2 Mg/1 Ml Inj IV Q4H PRN Pain, Moderate (4-6) Multivitamins/Minerals 1 each 11/15/21 10:00 11/15/21 09:32 Multivitamins,Ther W-Minerals Tab PO 1 each QDAY YE Administration Ondansetron HCl 4 mg 11/13/21 21:18 Ondansetron 4 Mg/2 Ml Inj IV Q3H PRN Nausea And Vomiting Polyethylene Glycol 17 gm 11/15/21 10:00 11/15/21 09:31 Polyethylene Glycol 3350 17 Gm Powder FEEDTUBE 17 gm QDAY YE Administration Senna 17.2 mg 11/14/21 11:00 11/15/21 09:34 Sennosides 8.6 Mg Tab FEEDTUBE Not Given BID YE Sodium Chloride 10 ml 11/13/21 22:00 11/15/21 09:32 Sodium Chloride 0.9% 10 Ml Flush Syringe IV 10 ml BID YE Administration Sodium Chloride 10 ml 11/13/21 21:18 Sodium Chloride 0.9% 10 Ml Flush Syringe IV PRN PRN LINE FLUSH Nutrition/Malnutrition Assess - Dietary Evaluation Nutrition/Malnutrition Findings: Nutrition Notes Start: 11/14/21 16:07 Freq: Status: Active Protocol: Document 11/15/21 12:32 MERRY (Rec: 11/15/21 12:50 MERRY [id number]) Nutrition Notes Initial or Follow up Brief Note Current Diagnosis COPD,Sepsis,Hypertension, Respiratory Failure, Malnutrition Other Pertinent Diagnosis COPD, CHF, Metabolic Encephalopathy, Dysphagia, Anemia, Hypotension, ... Current Diet TF-Vital AF 1.2 Darvin @ 65 ml/hr (from D 11/15). Height 6 ft Weight 68.039 kg [place] Body Weight (kg) 80.90 BMI 20.3 Weight change and time frame No body weight change reported in 1 day. Weight Status Appropriate Subjective/Other Information RD consult for write/manage TF . Pt continues on NPO. I will prescribe TF to provide Pt with energy/protein needs during LOS. Pt is on Room Air, O2 saturation @ 97%, according to Physical Assessment History notes. Pt resolved fecal impaction and had several BM, none with blood traces noted, according to Progress notes. GI will determine if PEG tube will be placed, according to Progress notes. Percent of energy/protein needs met: Prescribed TF-Vital AF 1.2 Darvin @ 65 ml/hr provides for energy/protein needs (1,885 Kcal/118 g) during LOS, 84% Kcal; 100% AA. #2 Nutrition Diagnosis Swallowing difficulty Diagnosis Progress(for reassessment Continues documentation) #1 Nutrition Diagnosis Malnutrition Diagnosis Progress(for reassessment Continues documentation) Is patient on ventilator? No Is Patient Ambulatory and/or Out of Bed No REE-([place]-St Jeor-confined to bed) 1797.684 Kcal/Kg value to use for calculation 33 Approximate Energy Requirements Using 2245 kcal/Kg Calculation Used for Recommendations Kcal/kg Additional Notes Protein: 1.2-1.5 g/Kg IBW; 97- 122 g/day. Fluids: 1 ml/Kcal, or as per MD. Nutrition Intervention Nutrition Support: Start TF-Vital AF 1.2 Darvin @ 65 ml/hr. Flush: 160 ml water Q 4 hr, or as per MD. Kcal 1,885 Protein (gm) 118 Carbohydrates (gm) 174 Fat (gm) 85 Fluid (mL) 1,274 Fiber (gm) 8 % RDI: 84% Kcal; 100% AA. Goal #1 Provide at least 75% of energy /protein needs through Enteral Feeding during LOS. Goal #2 Adjust the dietary intervention to better serve Pt's needs and clinical conditions during LOS. Follow-Up By: 11/16/21 Additional Comments Start monitoring TF tolerance and BM. <DALTON DE LEON - Last Filed: 11/22/21 12:17> Assessment and Plan Assessment and plan: I saw and evaluated the patient. Discussed with the nurse practitioner and agree with their findings and plan as documented in this note. Hospitalist Physical - Constitutional Vitals: Temp Pulse Resp BP Pulse Ox 97.8 F 112 H 24 92/56 95 11/20/21 16:30 11/20/21 16:30 11/20/21 16:30 11/20/21 16:30 11/20/21 16:30 HEART Score - HEART Score Troponin: Troponin T 0.050 ng/mL (0.00-0.029) H 11/13/21 11:33 Results - Labs CBC & Chem 7: 11/19/21 10:00 11/19/21 10:00 Labs: Laboratory Last Values WBC 9.7 K/mm3 (4.5-11.0) 11/19/21 10:00 RBC 3.54 M/mm3 (3.65-5.03) L 11/19/21 10:00 Hgb 8.9 gm/dl (11.8-15.2) L 11/19/21 10:00 Hct 27.5 % (35.5-45.6) L 11/19/21 10:00 MCV 78 fl (84-94) L 11/19/21 10:00 MCH 25 pg (28-32) L 11/19/21 10:00 MCHC 32 % (32-34) 11/19/21 10:00 RDW 21.8 % (13.2-15.2) H 11/19/21 10:00 Plt Count 519 K/mm3 (140-440) H 11/19/21 10:00 Lymph % (Auto) 11.5 % (13.4-35.0) L 11/19/21 10:00 [place] % (Auto) 8.8 % (0.0-7.3) H 11/19/21 10:00 Eos % (Auto) 1.8 % (0.0-4.3) 11/19/21 10:00 Baso % (Auto) 0.4 % (0.0-1.8) 11/19/21 10:00 Lymph # (Auto) 1.1 K/mm3 (1.2-5.4) L 11/19/21 10:00 [place] # (Auto) 0.9 K/mm3 (0.0-0.8) H 11/19/21 10:00 Eos # (Auto) 0.2 K/mm3 (0.0-0.4) 11/19/21 10:00 Baso # (Auto) 0.0 K/mm3 (0.0-0.1) 11/19/21 10:00 Add Manual Diff Complete 11/14/21 05:30 Total Counted 100 11/14/21 05:30 Seg Neutrophils % 77.5 % (40.0-70.0) H 11/19/21 10:00 Seg Neuts % (Manual) 100.0 % (40.0-70.0) H 11/14/21 05:30 Band Neutrophils % 0 % 11/14/21 05:30 Lymphocytes % (Manual) 0 % (13.4-35.0) L 11/14/21 05:30 Reactive Lymphs % (Man) 0 % 11/14/21 05:30 Monocytes % (Manual) 0 % (0.0-7.3) 11/14/21 05:30 Eosinophils % (Manual) 0 % (0.0-4.3) 11/14/21 05:30 Basophils % (Manual) 0 % (0.0-1.8) 11/14/21 05:30 Metamyelocytes % 0 % 11/14/21 05:30 Myelocytes % 0 % 11/14/21 05:30 Promyelocytes % 0 % 11/14/21 05:30 Blast Cells % 0 % 11/14/21 05:30 Nucleated RBC % 1.0 % (0.0-0.9) H 11/14/21 05:30 Seg Neutrophils # 7.5 K/mm3 (1.8-7.7) 11/19/21 10:00 Seg Neutrophils # Man 26.0 K/mm3 (1.8-7.7) H 11/14/21 05:30 Band Neutrophils # 0.0 K/mm3 11/14/21 05:30 Lymphocytes # (Manual) 0.0 K/mm3 (1.2-5.4) L 11/14/21 05:30 Abs React Lymphs (Man) 0.0 K/mm3 11/14/21 05:30 Monocytes # (Manual) 0.0 K/mm3 (0.0-0.8) 11/14/21 05:30 Eosinophils # (Manual) 0.0 K/mm3 (0.0-0.4) 11/14/21 05:30 Basophils # (Manual) 0.0 K/mm3 (0.0-0.1) 11/14/21 05:30 Metamyelocytes # 0.0 K/mm3 11/14/21 05:30 Myelocytes # 0.0 K/mm3 11/14/21 05:30 Promyelocytes # 0.0 K/mm3 11/14/21 05:30 Blast Cells # 0.0 K/mm3 11/14/21 05:30 WBC Morphology Not Reportable 11/14/21 05:30 Hypersegmented Neuts Not Reportable 11/14/21 05:30 Hyposegmented Neuts Not Reportable 11/14/21 05:30 Hypogranular Neuts Not Reportable 11/14/21 05:30 Smudge Cells Not Reportable 11/14/21 05:30 Toxic Granulation Not Reportable 11/14/21 05:30 Toxic Vacuolation Not Reportable 11/14/21 05:30 Dohle Bodies Not Reportable 11/14/21 05:30 Pelger-Huet Anomaly Not Reportable 11/14/21 05:30 Agata Rods Not Reportable 11/14/21 05:30 Platelet Estimate Consistent w auto 11/14/21 05:30 Clumped Platelets Not Reportable 11/14/21 05:30 Plt Clumps, EDTA Not Reportable 11/14/21 05:30 Large Platelets Not Reportable 11/14/21 05:30 Giant Platelets Not Reportable 11/14/21 05:30 Platelet Satelliting Not Reportable 11/14/21 05:30 Plt Morphology Comment Not Reportable 11/14/21 05:30 RBC Morphology Not Reportable 11/14/21 05:30 Dimorphic RBCs Not Reportable 11/14/21 05:30 Polychromasia Not Reportable 11/14/21 05:30 Hypochromasia 1+ 11/14/21 05:30 Poikilocytosis Not Reportable 11/14/21 05:30 Anisocytosis 1+ 11/14/21 05:30 Microcytosis Not Reportable 11/14/21 05:30 Macrocytosis Not Reportable 11/14/21 05:30 Spherocytes Not Reportable 11/14/21 05:30 Pappenheimer Bodies Not Reportable 11/14/21 05:30 Sickle Cells Not Reportable 11/14/21 05:30 Target Cells Not Reportable 11/14/21 05:30 Tear Drop Cells Not Reportable 11/14/21 05:30 Ovalocytes Few 11/14/21 05:30 Helmet Cells Not Reportable 11/14/21 05:30 [place] Bodies Not Reportable 11/14/21 05:30 [place] Rings Not Reportable 11/14/21 05:30 [place] Cells Not Reportable 11/14/21 05:30 Bite Cells Not Reportable 11/14/21 05:30 Crenated Cell Not Reportable 11/14/21 05:30 Elliptocytes Not Reportable 11/14/21 05:30 Acanthocytes (Spur) Not Reportable 11/14/21 05:30 Rouleaux Not Reportable 11/14/21 05:30 Hemoglobin C Crystals Not Reportable 11/14/21 05:30 Schistocytes Not Reportable 11/14/21 05:30 Malaria parasites Not Reportable 11/14/21 05:30 [place] Bodies Not Reportable 11/14/21 05:30 Hem Pathologist Commnt No 11/14/21 05:30 PT 16.9 Sec. (12.2-14.9) H 11/13/21 09:03 INR 1.20 (0.87-1.13) H 11/13/21 09:03 APTT 32.0 Sec. (24.2-36.6) 11/13/21 09:03 ABG pH 7.384 pH Units (7.350-7.450) 11/14/21 03:45 ABG pCO2 35.5 mm Hg 11/14/21 03:45 ABG pO2 112.8 mm Hg (80.0-90.0) H 11/14/21 03:45 ABG HCO3 20.7 mmol/L (20.0-26.0) 11/14/21 03:45 ABG O2 Saturation 98.1 % (95.0-99.0) 11/14/21 03:45 ABG O2 Content 9.1 (0.0-44) 11/14/21 03:45 ABG Base Excess -4.0 mmol/L (-2.0-3.0) L 11/14/21 03:45 ABG Hemoglobin 6.6 gm/dl (14.0-18.0) L 11/14/21 03:45 ABG Carboxyhemoglobin 1.7 % (0.0-5.0) 11/14/21 03:45 ABG Methemoglobin 0.6 % (0.0-1.5) 11/14/21 03:45 Oxyhemoglobin 95.8 % (95.0-99.0) 11/14/21 03:45 FiO2 40 % 11/14/21 03:45 Sodium 145 mmol/L (137-145) D 11/19/21 10:00 Potassium 2.9 mmol/L (3.6-5.0) L* 11/19/21 10:00 Chloride 112.0 mmol/L (98-107) H 11/19/21 10:00 Carbon Dioxide 24 mmol/L (22-30) 11/19/21 10:00 Anion Gap 12 mmol/L 11/19/21 10:00 BUN 10 mg/dL (9-20) 11/19/21 10:00 Creatinine 0.4 mg/dL (0.8-1.3) L 11/19/21 10:00 Estimated GFR > 60 ml/min 11/19/21 10:00 BUN/Creatinine Ratio 25 % 11/19/21 10:00 Glucose 85 mg/dL (75-100) 11/19/21 10:00 POC Glucose 70 mg/dL (70-105) 11/20/21 16:02 Calcium 8.3 mg/dL (8.4-10.2) L 11/19/21 10:00 Phosphorus 2.10 mg/dL (2.5-4.5) L 11/16/21 04:00 Magnesium 1.60 mg/dL (1.7-2.3) L 11/16/21 04:00 Iron 9 ug/dL (49-181) L 11/14/21 17:59 TIBC 155 mcg/dL (250-450) L 11/14/21 17:59 Total Bilirubin 0.30 mg/dL (0.1-1.2) 11/14/21 05:30 AST 14 units/L (5-40) 11/14/21 05:30 ALT 9 units/L (7-56) 11/14/21 05:30 Alkaline Phosphatase 80 units/L (35-129) 11/14/21 05:30 Troponin T 0.050 ng/mL (0.00-0.029) H 11/13/21 11:33 NT-Pro-B Natriuret Pep 1118 pg/mL (0-900) H 11/13/21 09:03 Total Protein 6.2 g/dL (6.3-8.2) L 11/14/21 05:30 Albumin 2.1 g/dL (3.9-5) L 11/14/21 05:30 Albumin/Globulin Ratio 0.5 % 11/14/21 05:30 Triglycerides 96 mg/dL (2-149) 11/13/21 11:33 Cholesterol 115 mg/dL (50-199) 11/13/21 11:33 LDL Cholesterol Direct 61 mg/dL (50-130) 11/13/21 11:33 HDL Cholesterol 28 mg/dL (40-59) L 11/13/21 11:33 Cholesterol/HDL Ratio 4.10 % 11/13/21 11:33 Vitamin B12 483.5 pg/mL (211-911) 11/14/21 17:59 TSH 1.680 mlU/mL (0.270-4.200) 11/13/21 09:03 Free T4 1.27 ng/dL (0.76-1.46) 11/13/21 09:03 Urine Color Yellow (Yellow) 11/13/21 11:12 Urine Turbidity Cloudy (Clear) 11/13/21 11:12 Urine pH 6.0 (5.0-7.0) 11/13/21 11:12 Ur Specific [place] 1.015 (1.003-1.030) 11/13/21 11:12 Urine Protein 100 mg/dl mg/dL (Negative) 11/13/21 11:12 Urine Glucose (UA) Negative mg/dL (Negative) 11/13/21 11:12 Urine Ketones 15 mg/dL (Negative) 11/13/21 11:12 Urine Blood Large (Negative) A 11/13/21 11:12 Urine Nitrite Negative (Negative) 11/13/21 11:12 Urine Bilirubin Negative (Negative) 11/13/21 11:12 Urine Urobilinogen 0.0 mg/dL (<2.0) 11/13/21 11:12 Ur Leukocyte Esterase Moderate (Negative) 11/13/21 11:12 Urine WBC (Auto) > 182.0 /HPF (0.0-6.0) H 11/13/21 11:12 Urine RBC (Auto) > 182.0 /HPF (0.0-6.0) 11/13/21 11:12 Urine Bacteria (Auto) 2+ /HPF (Negative) 11/13/21 11:12 Ur Yeast w Hyphae Few /HPF 11/13/21 11:12 Urine Yeast (Budding) Few /HPF 11/13/21 11:12 Vancomycin Trough 26.4 ug/mL (5.0-20.0) H 11/17/21 Unknown SARS-CoV-2 (PCR) Negative (Negative) 11/20/21 11:30 Blood Type A POSITIVE 11/13/21 09:08 Antibody Screen Negative 11/13/21 09:08 Crossmatch See Detail 11/13/21 09:08 [place]/IV: Voiding Method Suprapubic catheter Nutrition/Malnutrition Assess - Dietary Evaluation Nutrition/Malnutrition Findings: Nutrition Notes Start: 11/14/21 16:07 Freq: Status: Discharge Protocol: Document 11/16/21 11:20 MERRY (Rec: 11/16/21 11:39 MERRY [id number]) Nutrition Notes Initial or Follow up Brief Note Current Diagnosis COPD,Sepsis,Hypertension, Respiratory Failure, Malnutrition Other Pertinent Diagnosis COPD, CHF, Metabolic Encephalopathy, Dysphagia, Anemia, Hypotension, ... Current Diet TF-Vital AF 1.2 Darvin @ 65 ml/hr (from D 11/15). Height 6 ft Weight 75.9 kg [place] Body Weight (kg) 80.90 BMI 22.6 Weight change and time frame Discrepancy of 7.861 Kg body weight gain reporterd in 1 day . Weight Status Appropriate Subjective/Other Information RD consult for write/manage TF . TF was prescribed and order yesterday on 11/15. Pt was temporarly on NPO for PEG tube placement today 11/16 , according to RN notes. JET INSPECTOR note on 11/16/21 09:14: Modified Barium Swallow study has been conducted. Patient presents with significantly reduced A-P bolus propulsion with premature spillage of all consistencies. Swallow reflex is delayed with some residuals in the pharynx, however, with a second swallow , residuals cleared. Laryngeal penetration was identified with thins. Although no aspiration was identified, the patient if not fed properly, is at significant risk for aspiration due to the factors stated above. He does not desire to be placed in an upright position and if fed rapidly or with a significant amount of food placed in the oral cavity without adequate clearance, the potential for aspiration is extremely high will will result in aspiration pneumonia. If the patient is fed under ideal conditions with small bolus volumes of food and liquids at a slow rate and allowed to effectively clear, the potential for aspiration is lessened. With the presence of lung diseases, it is vital that these precautions be strictly adhered to in the prevention of aspiration. Recommend a pureed diet with nectar thickened liquids. Patient should be fed upright at 90 degrees regardless of his resistance. Small bites and sips should be given, allowing the him to clear prior to additional boluses. NO STRAWS SHOULD BE USED. Patient must remain upright 30 minutes following the completion of a meal. A swallowing precaution sign will be placed above the patient's bed. THESE GUIDELINES MUST BE STRICTLY FOLLOWED OR THERE IS A POTENTIAL FOR THE PATIENT TO ASPIRATE. The patient's capacity to swallow will progressively digress based on his diagnoses; therefore, he will be followed to ensure continued safety.- END OF NOTE . Percent of energy/protein needs met: Prescribed TF-Vital AF 1.2 Darvin @ 65 ml/hr provides for energy/protein needs (1,885 Kcal/118 g) during LOS, 84% Kcal; 100% AA. #2 Nutrition Diagnosis Swallowing difficulty Diagnosis Progress(for reassessment Continues documentation) #1 Nutrition Diagnosis Malnutrition Diagnosis Progress(for reassessment Continues documentation) Is patient on ventilator? No Is Patient Ambulatory and/or Out of Bed No REE-([facility]-confined to bed) 1891.920 Kcal/Kg value to use for calculation 30 Approximate Energy Requirements Using 2277 kcal/Kg Calculation Used for Recommendations Kcal/kg Additional Notes Protein: 1.2-1.5 g/Kg IBW; 97- 122 g/day. Fluids: 1 ml/Kcal, or as per MD. Nutrition Intervention Nutrition Support: When pertinet (after PEG placement), resume TF-Vital AF 1.2 Darvin @ 65 ml/hr. Flush: 160 ml water Q 4 hr, or as per MD. Kcal 1,885 Protein (gm) 118 Carbohydrates (gm) 174 Fat (gm) 85 Fluid (mL) 1,274 Fiber (gm) 8 % RDI: 84% Kcal; 100% AA. Goal #1 Provide at least 75% of energy /protein needs through Enteral Feeding during LOS. Goal #2 Adjust the dietary intervention to better serve Pt's needs and clinical conditions during LOS. Follow-Up By: 11/23/21 Additional Comments When pertinent, continue monitoring TF tolerance and BM .
[2021-11-15 15:25] LABS: Hemoglobin 7.7 gm/dl (11.8-15.2)
[2021-11-16] MEDS: CEFEPIME/NS 2 GM/100 ML 2 GM/100 ML BAG IV SCH ×3 (05:20→21:48)
[2021-11-16] MEDS: SODIUM CHLORIDE 0.9% 1000 ML 1,000 ML IV SCH (05:24)
[2021-11-16] MEDS: VANCOMYCIN/NS 1 GM/250 ML 1 GM/250 ML BAG IV SCH ×3 (06:03→17:34)
[2021-11-16 06:28] LABS: Blood Urea Nitrogen 12 mg/dL (9-20); Calcium 7.4 mg/dL (8.4-10.2); Hemolysis Index 5
[2021-11-16 06:36] LABS: Hematocrit 26.6 % (35.5-45.6); Hemoglobin 8.3 gm/dl (11.8-15.2); Mean Corpuscular HGB Conc 31 % (32-34); Mean Corpuscular Volume 79 fl (84-94); Platelet Count 347 K/mm3 (140-440); Red Blood Count 3.37 M/mm3 (3.65-5.03)
[2021-11-16 06:40] LABS: BUN/Creatinine Ratio 40
[2021-11-16 07:11] LABS: Red Cell Distribution Width 21.9 % (13.2-15.2)
--- NOTE | 2021-11-16 07:45 | Progress Note ---
Assessment and Plan Assessment and plan: History Interval history: This is a 66 year old male who is a paraplegic, HTN, DM, DVT s/p [place] filter, GERD, asthma, dementia, MS, depression, UTI, Adult failure to thrive, suprapubic catheter, chronic constipation and dysphagia who presented to emergency department on 11/13 from his shelter with increasing shortness of breath. In the emergency department patient received IV hydration per sepsis protocol for hypotension and tachycardia and started on Levophed and he was hypoxic and was placed in nonrebreather. Patient was intubated for respiratory distress. He was also started on antibiotics and CXR showed left pleural effusion. Work-up in the ED also showed leukocytosis and anemia with a hemoglobin of 6.2 and hematocrit of 20 and 1 unit PRBC was ordered. Patient was admitted to the hospitalist service with consults to [facility] with acute hypoxic respiratory failure, symptomatic anemia, sepsis. Hospital course to date: 11/14: H/H did not respond adequately to PRBC and we ordered to 1 unit of PRBC. Was on high-dose Levophed and vasopressin was ordered. 1 L LR bolus. Patient was started on bowel regimen, urine culture was sent. Sitter was discontinued. Patient will be on every 6 H&H and n.p.o. for now however will get meds through [place] tube. GI was consulted who digitally disimpacted the patient at bedside. Gastric occult positive. 11/15: Patient received GoLytely yesterday evening and has had multiple bowel movements. Patient has agreed to PEG placement and will receive a modified barium swallow to evaluate appropriateness for PEG tube. Patient transferred to the floor. Repleted potassium and phosphate. 11/16: Modified barium swallow was somehow cancelled yesterday. Re-ordered. Patient has gone back and forth regarding PEG placement. I communicated to the patient that he could potentially aspirate and if he does not get the PEG. D/w Dr. Saxena who is coordinating with family. Final decision to be made by family/patient daughter Erica today. Placement of PEG potentially this afternoon by GI. Assessment and plan: This is a 66-year-old female with paraplegia, HTN, DM, DVT s/p Herlinda filter, GERD, asthma, dementia, MS, depression, FIT, chronic constipation and dysphagia admitted with sepsis, symptomatic anemia and acute hypoxic respiratory failure Neuro:h/o MS, paraplegia, depression -Sedation stopped by day RN -Reorientation as needed -Maintain sleep-wake cycle -Aspiration precautions -As needed analgesia -Hold home baclofen, soma, diazepam, fentanyl patch, remeron, lyrica for now -likely restart in AM -patient does not have dementia, orientedX4 on my exam. Cardiac: Hypotension, h/o HTN -Cardiology consulted, appreciate recommendations -Blood pressure monitoring per protocol -Vasopressor support with levophed, vaso if needed -MAP goal greater than 65 -02/22/2021 echocardiogram shows LVEF 50% Respiratory: Acute hypoxic respiratory failure, h/o asthma -CCM consulted, appreciate recommendations -Intubated on 11/13 with 7.5 OETT at 23 at the lips and extubated 11/14 -Supplemental oxygen as needed -Currently on room air -Pulmonary hygiene -SPO2 monitoring per protocol GI: GIB, h/o dysphagia, GERD, chronic constipation, Failure to thrive -Per RN note patient had projectile vomiting in shelter per EMS report -GI consulted, appreciate recommendations -s/p Protonix gtt -Restarted on lansoprazole -KUB shows severe constipation -NGT -Gastric aspirate occult positive -BR: Senokot S, Colace, MiraLAX, Dulcolax suppository -Patient was digitally disimpacted by GI 11/14 -s/p Xavier -Modified barium swallow to assess for aspiratoin. pending to evaluate appropriateness for PEG : h/o suprapubic catheter -Monitor intake and output -Renally dose medications -Avoid nephrotoxic medications -Trend BMP ID: Septic shock -Presented with leukocytosis, hypotension, dirty UA, multiple decubitus ulcers scattered on body -S/p 2 L normal saline bolus in the ED, 1 L LR bolus in the ICU -Antibiotic therapy with cefepime and vancomycin -f/u blood culture and urine culture -UA noted -Monitor WBC and temperature curve Endo: h/o DM -Avoid hypoglycemia -SSI -Accu-Cheks q. every 6 Heme: Symptomatic anemia, r/o DVT s/p [place] filter -Presented with H/H of 6.2/20.0 -S/p 1 unit PRBC -H/H 6.4/21.2 -2 unit PRBC -Obtain H/H 2 hours post transfusion -Hold home warfarin -Avoid chemical anticoagulation in setting of severe anemia -q6hr H/H -Trend CBC -Transfuse hemoglobin less than 7 -SCDs to BLE while in bed History Interval history: No acute complaints. States he does not want peg placement but appeared unsure on my encounter. he is alert and oriented x4. Good memory recall upon questioning (ie. asking daughter's name) Hospitalist Physical - Physical exam Narrative exam: General appearance: Present: no acute distress, cachectic - EENT Eyes: Present: PERRL, EOM intact ENT: poor dentition - Neck Neck: Absent: masses or JVD, cervical LAD - Respiratory Respiratory effort: normal Respiratory: bilateral: diminished - Cardiovascular Rhythm: regular Heart Sounds: Present: S1 & S2. Absent: systolic murmur, diastolic murmur - Extremities Extremities: no ischemia, pulses intact, pulses symmetrical, normal temperature, normal color Peripheral Pulses: within normal limits - Abdominal General gastrointestinal: soft, non-tender, non-distended, normal bowel sounds - Integumentary Integumentary: Present: dry - Psychiatric Psychiatric: cooperative - Neurologic Neurologic: other (To hold conversation, intact cough/gag, pupils equal and reactive. Paraplegic from MS) - Constitutional Vitals: Temp Pulse Resp BP Pulse Ox 98.6 F 123 H 18 130/80 92 11/16/21 07:35 11/16/21 07:35 11/16/21 07:35 11/16/21 07:35 11/16/21 07:35 General appearance: Present: no acute distress, cachectic HEART Score - HEART Score Troponin: Troponin T 0.050 ng/mL (0.00-0.029) H 11/13/21 11:33 Results - Labs CBC & Chem 7: 11/16/21 04:00 11/16/21 04:00 Labs: Laboratory Last Values WBC 13.2 K/mm3 (4.5-11.0) H 11/16/21 04:00 RBC 3.37 M/mm3 (3.65-5.03) L 11/16/21 04:00 Hgb 8.3 gm/dl (11.8-15.2) L 11/16/21 04:00 Hct 26.6 % (35.5-45.6) L 11/16/21 04:00 MCV 79 fl (84-94) L 11/16/21 04:00 MCH 25 pg (28-32) L 11/16/21 04:00 MCHC 31 % (32-34) L 11/16/21 04:00 RDW 21.9 % (13.2-15.2) H 11/16/21 04:00 Plt Count 347 K/mm3 (140-440) 11/16/21 04:00 Add Manual Diff Complete 11/14/21 05:30 Total Counted 100 11/14/21 05:30 Seg Neutrophils % Youth Officer 11/14/21 05:30 Seg Neuts % (Manual) 100.0 % (40.0-70.0) H 11/14/21 05:30 Band Neutrophils % 0 % 11/14/21 05:30 Lymphocytes % (Manual) 0 % (13.4-35.0) L 11/14/21 05:30 Reactive Lymphs % (Man) 0 % 11/14/21 05:30 Monocytes % (Manual) 0 % (0.0-7.3) 11/14/21 05:30 Eosinophils % (Manual) 0 % (0.0-4.3) 11/14/21 05:30 Basophils % (Manual) 0 % (0.0-1.8) 11/14/21 05:30 Metamyelocytes % 0 % 11/14/21 05:30 Myelocytes % 0 % 11/14/21 05:30 Promyelocytes % 0 % 11/14/21 05:30 Blast Cells % 0 % 11/14/21 05:30 Nucleated RBC % 1.0 % (0.0-0.9) H 11/14/21 05:30 Seg Neutrophils # Man 26.0 K/mm3 (1.8-7.7) H 11/14/21 05:30 Band Neutrophils # 0.0 K/mm3 11/14/21 05:30 Lymphocytes # (Manual) 0.0 K/mm3 (1.2-5.4) L 11/14/21 05:30 Abs React Lymphs (Man) 0.0 K/mm3 11/14/21 05:30 Monocytes # (Manual) 0.0 K/mm3 (0.0-0.8) 11/14/21 05:30 Eosinophils # (Manual) 0.0 K/mm3 (0.0-0.4) 11/14/21 05:30 Basophils # (Manual) 0.0 K/mm3 (0.0-0.1) 11/14/21 05:30 Metamyelocytes # 0.0 K/mm3 11/14/21 05:30 Myelocytes # 0.0 K/mm3 11/14/21 05:30 Promyelocytes # 0.0 K/mm3 11/14/21 05:30 Blast Cells # 0.0 K/mm3 11/14/21 05:30 WBC Morphology Not Reportable 11/14/21 05:30 Hypersegmented Neuts Not Reportable 11/14/21 05:30 Hyposegmented Neuts Not Reportable 11/14/21 05:30 Hypogranular Neuts Not Reportable 11/14/21 05:30 Smudge Cells Not Reportable 11/14/21 05:30 Toxic Granulation Not Reportable 11/14/21 05:30 Toxic Vacuolation Not Reportable 11/14/21 05:30 Dohle Bodies Not Reportable 11/14/21 05:30 Pelger-Huet Anomaly Not Reportable 11/14/21 05:30 Agata Rods Not Reportable 11/14/21 05:30 Platelet Estimate Consistent w auto 11/14/21 05:30 Clumped Platelets Not Reportable 11/14/21 05:30 Plt Clumps, EDTA Not Reportable 11/14/21 05:30 Large Platelets Not Reportable 11/14/21 05:30 Giant Platelets Not Reportable 11/14/21 05:30 Platelet Satelliting Not Reportable 11/14/21 05:30 Plt Morphology Comment Not Reportable 11/14/21 05:30 RBC Morphology Not Reportable 11/14/21 05:30 Dimorphic RBCs Not Reportable 11/14/21 05:30 Polychromasia Not Reportable 11/14/21 05:30 Hypochromasia 1+ 11/14/21 05:30 Poikilocytosis Not Reportable 11/14/21 05:30 Anisocytosis 1+ 11/14/21 05:30 Microcytosis Not Reportable 11/14/21 05:30 Macrocytosis Not Reportable 11/14/21 05:30 Spherocytes Not Reportable 11/14/21 05:30 Pappenheimer Bodies Not Reportable 11/14/21 05:30 Sickle Cells Not Reportable 11/14/21 05:30 Target Cells Not Reportable 11/14/21 05:30 Tear Drop Cells Not Reportable 11/14/21 05:30 Ovalocytes Few 11/14/21 05:30 Helmet Cells Not Reportable 11/14/21 05:30 Cha-Veyo Bodies Not Reportable 11/14/21 05:30 Paoli Rings Not Reportable 11/14/21 05:30 Eure Cells Not Reportable 11/14/21 05:30 Bite Cells Not Reportable 11/14/21 05:30 Crenated Cell Not Reportable 11/14/21 05:30 Elliptocytes Not Reportable 11/14/21 05:30 Acanthocytes (Spur) Not Reportable 11/14/21 05:30 Rouleaux Not Reportable 11/14/21 05:30 Hemoglobin C Crystals Not Reportable 11/14/21 05:30 Schistocytes Not Reportable 11/14/21 05:30 Malaria parasites Not Reportable 11/14/21 05:30 Joshua Bodies Not Reportable 11/14/21 05:30 Hem Pathologist Commnt No 11/14/21 05:30 PT 16.9 Sec. (12.2-14.9) H 11/13/21 09:03 INR 1.20 (0.87-1.13) H 11/13/21 09:03 APTT 32.0 Sec. (24.2-36.6) 11/13/21 09:03 ABG pH 7.384 pH Units (7.350-7.450) 11/14/21 03:45 ABG pCO2 35.5 mm Hg 11/14/21 03:45 ABG pO2 112.8 mm Hg (80.0-90.0) H 11/14/21 03:45 ABG HCO3 20.7 mmol/L (20.0-26.0) 11/14/21 03:45 ABG O2 Saturation 98.1 % (95.0-99.0) 11/14/21 03:45 ABG O2 Content 9.1 (0.0-44) 11/14/21 03:45 ABG Base Excess -4.0 mmol/L (-2.0-3.0) L 11/14/21 03:45 ABG Hemoglobin 6.6 gm/dl (14.0-18.0) L 11/14/21 03:45 ABG Carboxyhemoglobin 1.7 % (0.0-5.0) 11/14/21 03:45 ABG Methemoglobin 0.6 % (0.0-1.5) 11/14/21 03:45 Oxyhemoglobin 95.8 % (95.0-99.0) 11/14/21 03:45 FiO2 40 % 11/14/21 03:45 Sodium 133 mmol/L (137-145) L D 11/16/21 04:00 Potassium 3.3 mmol/L (3.6-5.0) L 11/16/21 04:00 Chloride 104.6 mmol/L (98-107) 11/16/21 04:00 Carbon Dioxide 18 mmol/L (22-30) L 11/16/21 04:00 Anion Gap 14 mmol/L 11/16/21 04:00 BUN 12 mg/dL (9-20) 11/16/21 04:00 Creatinine 0.3 mg/dL (0.8-1.3) L 11/16/21 04:00 Estimated GFR > 60 ml/min 11/16/21 04:00 BUN/Creatinine Ratio 40 % 11/16/21 04:00 Glucose 194 mg/dL (75-100) H 11/16/21 04:00 POC Glucose 78 mg/dL (70-105) 11/16/21 07:38 Calcium 7.4 mg/dL (8.4-10.2) L 11/16/21 04:00 Phosphorus 2.10 mg/dL (2.5-4.5) L 11/16/21 04:00 Magnesium 1.60 mg/dL (1.7-2.3) L 11/16/21 04:00 Iron 9 ug/dL (49-181) L 11/14/21 17:59 TIBC 155 mcg/dL (250-450) L 11/14/21 17:59 Total Bilirubin 0.30 mg/dL (0.1-1.2) 11/14/21 05:30 AST 14 units/L (5-40) 11/14/21 05:30 ALT 9 units/L (7-56) 11/14/21 05:30 Alkaline Phosphatase 80 units/L (35-129) 11/14/21 05:30 Troponin T 0.050 ng/mL (0.00-0.029) H 11/13/21 11:33 NT-Pro-B Natriuret Pep 1118 pg/mL (0-900) H 11/13/21 09:03 Total Protein 6.2 g/dL (6.3-8.2) L 11/14/21 05:30 Albumin 2.1 g/dL (3.9-5) L 11/14/21 05:30 Albumin/Globulin Ratio 0.5 % 11/14/21 05:30 Triglycerides 96 mg/dL (2-149) 11/13/21 11:33 Cholesterol 115 mg/dL (50-199) 11/13/21 11:33 LDL Cholesterol Direct 61 mg/dL (50-130) 11/13/21 11:33 HDL Cholesterol 28 mg/dL (40-59) L 11/13/21 11:33 Cholesterol/HDL Ratio 4.10 % 11/13/21 11:33 Vitamin B12 483.5 pg/mL (211-911) 11/14/21 17:59 TSH 1.680 mlU/mL (0.270-4.200) 11/13/21 09:03 Free T4 1.27 ng/dL (0.76-1.46) 11/13/21 09:03 Urine Color Yellow (Yellow) 11/13/21 11:12 Urine Turbidity Cloudy (Clear) 11/13/21 11:12 Urine pH 6.0 (5.0-7.0) 11/13/21 11:12 Ur Specific [place] 1.015 (1.003-1.030) 11/13/21 11:12 Urine Protein 100 mg/dl mg/dL (Negative) 11/13/21 11:12 Urine Glucose (UA) Negative mg/dL (Negative) 11/13/21 11:12 Urine Ketones 15 mg/dL (Negative) 11/13/21 11:12 Urine Blood Large (Negative) A 11/13/21 11:12 Urine Nitrite Negative (Negative) 11/13/21 11:12 Urine Bilirubin Negative (Negative) 11/13/21 11:12 Urine Urobilinogen 0.0 mg/dL (<2.0) 11/13/21 11:12 Ur Leukocyte Esterase Moderate (Negative) 11/13/21 11:12 Urine WBC (Auto) > 182.0 /HPF (0.0-6.0) H 11/13/21 11:12 Urine RBC (Auto) > 182.0 /HPF (0.0-6.0) 11/13/21 11:12 Urine Bacteria (Auto) 2+ /HPF (Negative) 11/13/21 11:12 Ur Yeast w Hyphae Few /HPF 11/13/21 11:12 Urine Yeast (Budding) Few /HPF 11/13/21 11:12 Blood Type A POSITIVE 11/13/21 09:08 Antibody Screen Negative 11/13/21 09:08 Crossmatch See Detail 11/13/21 09:08 Microbiology: Microbiology 11/13/21 09:55 Tracheal Aspirate Sputum Culture - Preliminary Methicillin Resist S. Aureus 11/14/21 09:25 Peripheral/Venous Blood Culture - Preliminary NO GROWTH AFTER 24 HOURS 11/14/21 09:25 Peripheral/Venous Blood Culture - Preliminary NO GROWTH AFTER 24 HOURS [place]/IV: Voiding Method Suprapubic catheter Active Medications - Current Medications Current Medications: Generic Name Dose Route Start Last Admin Trade Name Freq PRN Reason Stop Dose Admin Acetaminophen 650 mg 11/13/21 13:07 Acetaminophen 650 Mg Rect Supp UT Q6H PRN Pain MILD(1-3)/Fever >100.5/CHIU Acetaminophen 650 mg 11/14/21 16:41 Acetaminophen 325 Mg Tab FEEDTUBE Q4H PRN Pain MILD(1-3)/Fever >100.5/CHIU Albuterol 2.5 mg 11/14/21 20:00 Albuterol 2.5 Mg/3 Ml Nebu IH QIDRT PRN Shortness Of Breath Albuterol/Ipratropium 1 ampul 11/14/21 08:00 11/15/21 21:46 Ipratropium/Albuterol Sulfate 3 Ml Ampul.Neb IH 1 ampul QIDRT YE Administration Artificial Tears 1 drops 11/15/21 10:00 11/15/21 09:31 Hypromellose 0.5% Ophth Soln 15 Ml OU 1 drops QDAY YE Administration Ascorbic Acid 500 mg 11/15/21 10:00 11/15/21 09:32 Ascorbic Acid 500 Mg Tab FEEDTUBE 500 mg QDAY YE Administration Dextrose 50 ml 11/15/21 12:05 06/30/22 20:38 Dextrose 50% In Water (25gm) 50 Ml Syringe IV 50 ml Q30MIN PRN Administration Hypoglycemia Protocol Docusate Sodium 100 mg 11/14/21 11:00 11/15/21 22:14 Docusate Sodium 100 Mg/10 Ml Oral Liqd FEEDTUBE 100 mg BID YE Administration Ferrous Sulfate 300 mg 11/15/21 10:00 11/15/21 09:31 Ferrous Sulfate 300 Mg (60mg Elemental Iron) / 5 Ml Oral Liqd PO 300 mg QDAY YE Administration Fish Oil 1,000 mg 11/14/21 22:00 11/15/21 22:15 [place]-3 Fatty Acids/Fish Oil 1 Gram Cap PO 1,000 mg BID YE Administration NORepinephrine/NS 8 MG-250 ML 8 mg in 250 mls @ 3.75 mls/hr 11/13/21 09:30 11/15/21 05:03 Norepinephrine/Ns 8 Mg-250 Ml (Double Conc) IV 0 mcg/min TITRATE YE 0 mls/hr Titration Protocol 2 MCG/MIN Sodium Chloride 1,000 mls @ 125 mls/hr 11/13/21 21:30 11/16/21 05:24 Nacl 0.9% 1000 Ml IV 125 mls/hr DIRECT YE Administration Cefepime HCl 2 gm in 100 mls @ 200 mls/hr 11/13/21 22:00 11/16/21 05:20 Cefepime/Ns 2 Gm/100 Ml IV 11/18/21 21:59 200 mls/hr Q8H YE Administration Protocol Vancomycin HCl 1 gm in 250 mls @ 250 mls/hr 11/14/21 06:00 11/16/21 06:03 Vancomycin/Ns 1 Gm/250 Ml IV 11/19/21 05:59 250 mls/hr Q12H YE Administration Vasopressin 20 unit/ Sodium 101 mls @ 9.09 mls/hr 11/14/21 09:00 Chloride IV TITR YE Protocol 0.03 UNITS/MIN Lansoprazole 30 mg 11/15/21 10:00 11/15/21 09:32 Lansoprazole 30 Mg Solutab FEEDTUBE 30 mg QDAY YE Administration Metoclopramide HCl 10 mg 11/13/21 21:18 Metoclopramide 10 Mg/2 Ml Inj IV Q6H PRN Nausea And Vomiting Morphine Sulfate 2 mg 11/13/21 13:11 Morphine 2 Mg/1 Ml Inj IV Q4H PRN Pain, Moderate (4-6) Multivitamins/Minerals 1 each 11/15/21 10:00 11/15/21 09:32 Multivitamins,Ther W-Minerals Tab PO 1 each QDAY YE Administration Ondansetron HCl 4 mg 11/13/21 21:18 Ondansetron 4 Mg/2 Ml Inj IV Q3H PRN Nausea And Vomiting Polyethylene Glycol 17 gm 11/15/21 10:00 11/15/21 09:31 Polyethylene Glycol 3350 17 Gm Powder FEEDTUBE 17 gm QDAY YE Administration Senna 17.2 mg 11/14/21 11:00 11/15/21 22:15 Sennosides 8.6 Mg Tab FEEDTUBE 17.2 mg BID YE Administration Sodium Chloride 10 ml 11/13/21 22:00 11/15/21 23:42 Sodium Chloride 0.9% 10 Ml Flush Syringe IV 10 ml BID YE Administration Sodium Chloride 10 ml 11/13/21 21:18 Sodium Chloride 0.9% 10 Ml Flush Syringe IV PRN PRN LINE FLUSH Nutrition/Malnutrition Assess - Dietary Evaluation Nutrition/Malnutrition Findings: Nutrition Notes Start: 11/14/21 16:07 Freq: Status: Active Protocol: Document 11/15/21 12:32 MERRY (Rec: 11/15/21 12:50 MERRY [email or web address]) Nutrition Notes Initial or Follow up Brief Note Current Diagnosis COPD,Sepsis,Hypertension, Respiratory Failure, Malnutrition Other Pertinent Diagnosis COPD, CHF, Metabolic Encephalopathy, Dysphagia, Anemia, Hypotension, ... Current Diet TF-Vital AF 1.2 Darvin @ 65 ml/hr (from D 11/15). Height 6 ft Weight 68.039 kg [place] Body Weight (kg) 80.90 BMI 20.3 Weight change and time frame No body weight change reported in 1 day. Weight Status Appropriate Subjective/Other Information RD consult for write/manage TF . Pt continues on NPO. I will prescribe TF to provide Pt with energy/protein needs during LOS. Pt is on Room Air, O2 saturation @ 97%, according to Physical Assessment History notes. Pt resolved fecal impaction and had several BM, none with blood traces noted, according to Progress notes. GI will determine if PEG tube will be placed, according to Progress notes. Percent of energy/protein needs met: Prescribed TF-Vital AF 1.2 Darvin @ 65 ml/hr provides for energy/protein needs (1,885 Kcal/118 g) during LOS, 84% Kcal; 100% AA. #2 Nutrition Diagnosis Swallowing difficulty Diagnosis Progress(for reassessment Continues documentation) #1 Nutrition Diagnosis Malnutrition Diagnosis Progress(for reassessment Continues documentation) Is patient on ventilator? No Is Patient Ambulatory and/or Out of Bed No REE-([facility]-confined to bed) 1797.684 Kcal/Kg value to use for calculation 33 Approximate Energy Requirements Using 2245 kcal/Kg Calculation Used for Recommendations Kcal/kg Additional Notes Protein: 1.2-1.5 g/Kg IBW; 97- 122 g/day. Fluids: 1 ml/Kcal, or as per MD. Nutrition Intervention Nutrition Support: Start TF-Vital AF 1.2 Darvin @ 65 ml/hr. Flush: 160 ml water Q 4 hr, or as per MD. Kcal 1,885 Protein (gm) 118 Carbohydrates (gm) 174 Fat (gm) 85 Fluid (mL) 1,274 Fiber (gm) 8 % RDI: 84% Kcal; 100% AA. Goal #1 Provide at least 75% of energy /protein needs through Enteral Feeding during LOS. Goal #2 Adjust the dietary intervention to better serve Pt's needs and clinical conditions during LOS. Follow-Up By: 11/16/21 Additional Comments Start monitoring TF tolerance and BM.
[2021-11-16] MEDS: IPRATROPIUM/ALBUTEROL SULFATE 3 ML AMPUL.NEB IH SCH ×4 (08:40→20:04)
--- NOTE | 2021-11-16 09:18 | Fluoroscopy Report ---
MODIFIED BARIUM SWALLOW INDICATION: aspiration TECHNIQUE: Swallowing was evaluated in the lateral position under direct fluoroscopy. FINDINGS: The patient was evaluated with thin liquid, nectar and puree consistencies.. Delayed AP bolus transit was demonstrated with all consistencies. Mild laryngeal penetration was seen with thin liquids and nectar consistencies. No aspiration was seen. Please correlate with the formal report from speech therapy. IMPRESSION: Delayed A-P bolus transit. Mild laryngeal penetration with thin liquids and nectar consi stencies. No anson aspiration witnessed. Fluoroscopic time: 2 minutes Number of fluoroscopic images: 2 Signer Name: Cooper Barrios Jr, MD Signed: 11/16/2021 9:13 AM Workstation Name: [id number]
[2021-11-16] MEDS: OMEGA-3 FATTY ACIDS/FISH OIL 1 GRAM CAP PO SCH ×2 (10:24→21:54)
[2021-11-16] MEDS: LANSOPRAZOLE 30 MG SOLUTAB FEEDTUBE SCH ×2 (10:24→17:34)
[2021-11-16] MEDS: ASCORBIC ACID 500 MG TAB FEEDTUBE SCH ×2 (10:24→17:34)
[2021-11-16] MEDS: POLYETHYLENE GLYCOL 3350 17 GM POWDER FEEDTUBE SCH (10:24)
[2021-11-16] MEDS: MULTIVITAMINS,THER W-MINERALS TAB PO SCH ×2 (10:24→17:34)
[2021-11-16] MEDS: DOCUSATE SODIUM 100 MG/10 ML ORAL LIQD FEEDTUBE SCH ×2 (10:24→21:54)
[2021-11-16] MEDS: FERROUS SULFATE 300 MG (60MG Elemental Iron) / 5 mL ORAL LIQD PO SCH ×2 (10:24→17:37)
[2021-11-16] MEDS: SENNOSIDES 8.6 MG TAB FEEDTUBE SCH ×2 (10:24→21:54)
[2021-11-16] MEDS ORDERED: SIMPLE SYRUP 15 ML FEEDTUBE PRN ×2 (11:34)
[2021-11-16] MEDS ORDERED: LIPASE 10,500/PROTEASE 25,000/AMYLASE 43,750 (UNITS) DR CAP FEEDTUBE PRN (11:34)
[2021-11-16] MEDS ORDERED: SODIUM BICARBONATE 325 MG TAB FEEDTUBE PRN (11:34)
--- NOTE | 2021-11-16 11:52 | Progress Note ---
Assessment and Plan 66 y/o male with acute respiratory failure secondary to sepsis, possibly from infected wounds vs aspiration 11/16/21: Stable pulm status. Will sign off. Call if questions or concerns. 11/15/21: No scope as of now per GI, however may need peg tube if truly aspirating. MBS to assess. Stable on room air and no other acute critical care issues, will transfer to floor. 1. Extubate today 2. Continue broad spec abx 3. Can likely stop steroids 4. Wound care consult for wounds 5. GI consult, bowel movement given abdominal imaging 6. Guarded prognosis. CCT 31 minutes. Subjective Date of service: 11/16/21 Interval history: Successful transition to floor on yesterday. MBS done yesterday as well. Objective Vital Signs - 12hr 11/16/21 11/16/21 11/16/21 00:00 03:54 07:35 Temperature 97.4 F L 98.6 F Pulse Rate 121 H 123 H Respiratory 22 18 Rate Blood Pressure 113/79 130/80 Blood Pressure [Left] O2 Sat by Pulse 94 94 92 Oximetry 11/16/21 11:42 Temperature 97.9 F Pulse Rate 110 H Respiratory 18 Rate Blood Pressure Blood Pressure 110/70 [Left] O2 Sat by Pulse 96 Oximetry Constitutional: no acute distress, alert ENT: other (orally intubated, not sedated) Neck: supple Effort: normal Ascultation: Bilateral: clear CBC and BMP: 11/16/21 04:00 11/16/21 04:00 ABG, PT/INR, D-dimer: ABG ABG pH 7.384 pH Units (7.350-7.450) 11/14/21 03:45 ABG pCO2 35.5 mm Hg 11/14/21 03:45 ABG pO2 112.8 mm Hg (80.0-90.0) H 11/14/21 03:45 ABG O2 Saturation 98.1 % (95.0-99.0) 11/14/21 03:45 PT/INR, D-dimer PT 16.9 Sec. (12.2-14.9) H 11/13/21 09:03 INR 1.20 (0.87-1.13) H 11/13/21 09:03 Abnormal lab findings: Abnormal Labs 11/13/21 11/13/21 11/13/21 09:03 09:03 09:03 WBC 19.5 H RBC 2.74 L Hgb 6.2 L Hct 20.0 L MCV 73 L MCH 23 L MCHC 31 L RDW 20.9 H Plt Count 656 H Seg Neuts % (Manual) 97.0 H Lymphocytes % (Manual) 1.0 L Nucleated RBC % Seg Neutrophils # Man 18.9 H Lymphocytes # (Manual) 0.2 L PT 16.9 H INR 1.20 H ABG pO2 ABG O2 Saturation ABG Base Excess ABG Hemoglobin Sodium Potassium Chloride Carbon Dioxide 21 L BUN 45 H Creatinine 0.7 L Glucose 173 H POC Glucose Calcium Phosphorus Magnesium Iron TIBC Troponin T NT-Pro-B Natriuret Pep 1118 H Total Protein Albumin 2.5 L HDL Cholesterol Urine Blood Urine WBC (Auto) Crossmatch 11/13/21 11/13/21 11/13/21 09:08 10:22 11:12 WBC RBC Hgb Hct MCV MCH MCHC RDW Plt Count Seg Neuts % (Manual) Lymphocytes % (Manual) Nucleated RBC % Seg Neutrophils # Man Lymphocytes # (Manual) PT INR ABG pO2 284.1 H ABG O2 Saturation 99.5 H ABG Base Excess ABG Hemoglobin 6.2 L Sodium Potassium Chloride Carbon Dioxide BUN Creatinine Glucose POC Glucose Calcium Phosphorus Magnesium Iron TIBC Troponin T NT-Pro-B Natriuret Pep Total Protein Albumin HDL Cholesterol Urine Blood Large A Urine WBC (Auto) > 182.0 H Crossmatch See Detail 11/13/21 11/14/21 11/14/21 11:33 03:45 05:30 WBC 26.0 H RBC 2.79 L Hgb 6.4 L Hct 21.2 L MCV 76 L MCH 23 L MCHC 30 L RDW 21.1 H Plt Count 535 H Seg Neuts % (Manual) 100.0 H Lymphocytes % (Manual) 0 L Nucleated RBC % 1.0 H Seg Neutrophils # Man 26.0 H Lymphocytes # (Manual) 0.0 L PT INR ABG pO2 112.8 H ABG O2 Saturation ABG Base Excess -4.0 L ABG Hemoglobin 6.6 L Sodium Potassium Chloride Carbon Dioxide BUN Creatinine Glucose POC Glucose Calcium Phosphorus Magnesium Iron TIBC Troponin T 0.050 H NT-Pro-B Natriuret Pep Total Protein Albumin HDL Cholesterol 28 L Urine Blood Urine WBC (Auto) Crossmatch 11/14/21 11/14/21 11/14/21 05:30 16:42 17:59 WBC RBC Hgb 8.3 L 8.3 L Hct 26.1 L 27.0 L MCV MCH MCHC RDW Plt Count Seg Neuts % (Manual) Lymphocytes % (Manual) Nucleated RBC % Seg Neutrophils # Man Lymphocytes # (Manual) PT INR ABG pO2 ABG O2 Saturation ABG Base Excess ABG Hemoglobin Sodium Potassium Chloride 109.3 H Carbon Dioxide 20 L BUN 35 H Creatinine 0.5 L Glucose 149 H POC Glucose Calcium 7.9 L Phosphorus Magnesium Iron TIBC Troponin T NT-Pro-B Natriuret Pep Total Protein 6.2 L Albumin 2.1 L HDL Cholesterol Urine Blood Urine WBC (Auto) Crossmatch 11/14/21 11/15/21 11/15/21 17:59 00:00 04:00 WBC 15.6 H RBC 3.12 L Hgb 7.8 L 7.7 L Hct 24.7 L 24.6 L MCV 79 L MCH 25 L MCHC 31 L RDW 21.4 H Plt Count Seg Neuts % (Manual) Lymphocytes % (Manual) Nucleated RBC % Seg Neutrophils # Man Lymphocytes # (Manual) PT INR ABG pO2 ABG O2 Saturation ABG Base Excess ABG Hemoglobin Sodium Potassium Chloride Carbon Dioxide BUN Creatinine Glucose POC Glucose Calcium Phosphorus Magnesium Iron 9 L TIBC 155 L Troponin T NT-Pro-B Natriuret Pep Total Protein Albumin HDL Cholesterol Urine Blood Urine WBC (Auto) Crossmatch 11/15/21 11/15/21 11/15/21 04:00 11:20 15:09 WBC RBC Hgb 7.7 L Hct 25.0 L MCV MCH MCHC RDW Plt Count Seg Neuts % (Manual) Lymphocytes % (Manual) Nucleated RBC % Seg Neutrophils # Man Lymphocytes # (Manual) PT INR ABG pO2 ABG O2 Saturation ABG Base Excess ABG Hemoglobin Sodium 147 H Potassium 3.1 L D Chloride 113.8 H Carbon Dioxide 21 L BUN 23 H Creatinine 0.4 L Glucose 101 H POC Glucose 67 L Calcium 8.0 L Phosphorus 1.80 L Magnesium Iron TIBC Troponin T NT-Pro-B Natriuret Pep Total Protein Albumin HDL Cholesterol Urine Blood Urine WBC (Auto) Crossmatch 11/16/21 11/16/21 04:00 04:00 WBC 13.2 H RBC 3.37 L Hgb 8.3 L Hct 26.6 L MCV 79 L MCH 25 L MCHC 31 L RDW 21.9 H Plt Count Seg Neuts % (Manual) Lymphocytes % (Manual) Nucleated RBC % Seg Neutrophils # Man Lymphocytes # (Manual) PT INR ABG pO2 ABG O2 Saturation ABG Base Excess ABG Hemoglobin Sodium 133 L D Potassium 3.3 L Chloride Carbon Dioxide 18 L BUN Creatinine 0.3 L Glucose 194 H POC Glucose Calcium 7.4 L Phosphorus 2.10 L Magnesium 1.60 L Iron TIBC Troponin T NT-Pro-B Natriuret Pep Total Protein Albumin HDL Cholesterol Urine Blood Urine WBC (Auto) Crossmatch
[2021-11-16] MEDS: DEXTROSE 50% IN WATER (25GM) 50 ML SYRINGE IV PRN (13:25)
--- NOTE | 2021-11-16 13:42 | XRay Report ---
CHEST 1 VIEW 11/16/2021 12:35 PM INDICATION / CLINICAL INFORMATION: SOB. COMPARISON: 11/13/2021. FINDINGS: SUPPORT DEVICES: Chest port and NG tube in satisfactory position. Removal of endotracheal tube. HEART / MEDIASTINUM: No significant abnormality. LUNGS / PLEURA: Lung volumes have diminished. Mild increasing pleural fluid and opacity on the right. Development of complete opacification of the left chest. Loculated pneumothorax remains left base. N o pneumothorax. ADDITIONAL FINDINGS: No significant additional findings. IMPRESSION: Interval worsening with complete opacification now present at the left chest. Signer Name: Smooth Hernandez MD Signed: 11/16/2021 1:38 PM Workstation Name: Present
[2021-11-16] MEDS ORDERED: FUROSEMIDE 40 MG/4 ML INJ IV ONE (14:00)
--- NOTE | 2021-11-16 14:38 | Event Note ---
Date: 11/16/21 I spoke with patient's daughter, Yaneth Lieberman, at [phone]. She confirms that her father has no dementia and is fully capable of making decisions. Patient does not want G-tube placement. Speech therapy has now cleared him for a diet with restrictions. Given that patient refuses G-tube, we will sign off. Please call as needed.
[2021-11-16] MEDS: HYPROMELLOSE 0.5% OPHTH SOLN 15 ML OU SCH ×2 (17:35→17:49)
[2021-11-16] MEDS: MORPHINE 2 MG/1 ML INJ IV PRN (20:39)
[2021-11-17] MEDS: CEFEPIME/NS 2 GM/100 ML 2 GM/100 ML BAG IV SCH ×2 (05:53→14:23)
[2021-11-17] MEDS: VANCOMYCIN/NS 1 GM/250 ML 1 GM/250 ML BAG IV SCH ×2 (06:24→18:19)
[2021-11-17] MEDS: FAMOTIDINE 20 MG/2 ML INJ IV SCH (07:31)
[2021-11-17] MEDS: IPRATROPIUM/ALBUTEROL SULFATE 3 ML AMPUL.NEB IH SCH ×3 (08:12→21:04)
[2021-11-17] MEDS ORDERED: ALBUTEROL 2.5 MG/3 ML NEBU IH PRN (09:00)
[2021-11-17] MEDS: FERROUS SULFATE 300 MG (60MG Elemental Iron) / 5 mL ORAL LIQD PO SCH (09:25)
[2021-11-17] MEDS: ASCORBIC ACID 500 MG TAB FEEDTUBE SCH (09:25)
[2021-11-17] MEDS: MULTIVITAMINS,THER W-MINERALS TAB PO SCH (09:25)
[2021-11-17] MEDS: SENNOSIDES 8.6 MG TAB FEEDTUBE SCH ×2 (09:26→21:32)
[2021-11-17] MEDS: DOCUSATE SODIUM 100 MG/10 ML ORAL LIQD FEEDTUBE SCH ×2 (09:26→21:32)
[2021-11-17] MEDS: LANSOPRAZOLE 30 MG SOLUTAB FEEDTUBE SCH (09:26)
[2021-11-17] MEDS: OMEGA-3 FATTY ACIDS/FISH OIL 1 GRAM CAP PO SCH ×2 (09:26→21:32)
[2021-11-17] MEDS: POLYETHYLENE GLYCOL 3350 17 GM POWDER FEEDTUBE SCH (09:26)
[2021-11-17] MEDS: HYPROMELLOSE 0.5% OPHTH SOLN 15 ML OU SCH (09:31)
[2021-11-17] MEDS: MORPHINE 2 MG/1 ML INJ IV PRN ×3 (10:22→21:39)
--- NOTE | 2021-11-17 14:24 | Progress Note ---
Assessment and Plan Assessment and plan: History Interval history: This is a 66 year old male who is a paraplegic, HTN, DM, DVT s/p Herlinda filter, GERD, asthma, dementia, MS, depression, UTI, Adult failure to thrive, suprapubic catheter, chronic constipation and dysphagia who presented to emergency department on 11/13 from his assisted with increasing shortness of breath. In the emergency department patient received IV hydration per sepsis protocol for hypotension and tachycardia and started on Levophed and he was hypoxic and was placed in nonrebreather. Patient was intubated for respiratory distress. He was also started on antibiotics and CXR showed left pleural effusion. Work-up in the ED also showed leukocytosis and anemia with a hemoglobin of 6.2 and hematocrit of 20 and 1 unit PRBC was ordered. Patient was admitted to the hospitalist service with consults to [facility] with acute hypoxic respiratory failure, symptomatic anemia, sepsis. Hospital course to date: 11/14: H/H did not respond adequately to PRBC and we ordered to 1 unit of PRBC. Was on high-dose Levophed and vasopressin was ordered. 1 L LR bolus. Patient was started on bowel regimen, urine culture was sent. Sitter was discontinued. Patient will be on every 6 H&H and n.p.o. for now however will get meds through [place]obb[place] tube. GI was consulted who digitally disimpacted the patient at bedside. Gastric occult positive. 11/15: Patient received GoLytely yesterday evening and has had multiple bowel movements. Patient has agreed to PEG placement and will receive a modified barium swallow to evaluate appropriateness for PEG tube. Patient transferred to the floor. Repleted potassium and phosphate. 11/16: Modified barium swallow was somehow cancelled yesterday. Re-ordered. Patient has gone back and forth regarding PEG placement. I communicated to the patient that he could potentially aspirate and if he does not get the PEG. D/w Dr. Saxena who is coordinating with family. Final decision to be made by family/patient daughter Erica today. Placement of PEG potentially this afternoon by GI. 11/17: PEG cancelled as patient declined yesterday. Advanced diet to puree with specific instructions per FLAG MAKER note. Can discontinue NG if patient tolerating diet well. MRSA in tracheal aspirate noted. Continue Vancomycin. D/c cefepime IV. Assessment and plan: This is a 66-year-old female with paraplegia, HTN, DM, DVT s/p Herlinda filter, GERD, asthma, dementia, MS, depression, FIT, chronic constipation and dysphagia admitted with sepsis, symptomatic anemia and acute hypoxic respiratory failure Neuro:h/o MS, paraplegia, depression -Sedation stopped by day RN -Reorientation as needed -Maintain sleep-wake cycle -Aspiration precautions -As needed analgesia -Hold home baclofen, soma, diazepam, fentanyl patch, remeron, lyrica for now -likely restart in AM -patient does not have dementia, orientedX4 on my exam. Cardiac: Hypotension, h/o HTN -Cardiology consulted, appreciate recommendations -Blood pressure monitoring per protocol -Vasopressor support with levophed, vaso if needed -MAP goal greater than 65 -02/22/2021 echocardiogram shows LVEF 50% Respiratory: Acute hypoxic respiratory failure, h/o asthma -CCM consulted, appreciate recommendations -Intubated on 11/13 with 7.5 OETT at 23 at the lips and extubated 11/14 -Supplemental oxygen as needed -Currently on room air -Pulmonary hygiene -SPO2 monitoring per protocol GI: GIB, h/o dysphagia, GERD, chronic constipation, Failure to thrive -Per RN note patient had projectile vomiting in assisted per EMS report -GI consulted, appreciate recommendations -s/p Protonix gtt -Restarted on lansoprazole -KUB shows severe constipation -NGT -Gastric aspirate occult positive -BR: Senokot S, Colace, MiraLAX, Dulcolax suppository -Patient was digitally disimpacted by GI 11/14 -s/p GoLytely -Modified barium swallow to assess for aspiratoin. pending to evaluate appropriateness for PEG : h/o suprapubic catheter -Monitor intake and output -Renally dose medications -Avoid nephrotoxic medications -Trend BMP ID: Septic shock, MRSA Pneumonia -Presented with leukocytosis, hypotension, dirty UA, multiple decubitus ulcers scattered on body -S/p 2 L normal saline bolus in the ED, 1 L LR bolus in the ICU -Antibiotic therapy with cefepime and vancomycin -f/u blood culture and urine culture -UA noted -Monitor WBC and temperature curve - sputum cx: + MRSA - continue vancomycin ,d/c cefepime. Endo: h/o DM -Avoid hypoglycemia -SSI -Accu-Cheks q. every 6 Heme: Symptomatic anemia, r/o DVT s/p Herlinda filter -Presented with H/H of 6.2/20.0 -S/p 1 unit PRBC -H/H 6.4/21.2 -2 unit PRBC -Obtain H/H 2 hours post transfusion -Hold home warfarin -Avoid chemical anticoagulation in setting of severe anemia -q6hr H/H -Trend CBC -Transfuse hemoglobin less than 7 -SCDs to BLE while in bed #Advance care planning Disease education conducted, care plan discussed, diagnoses discussed, prognosis discussed, patient is full code, patient acknowledges understanding and agree wi th care plan, +30 minutes. History Interval history: No complaints on encounter this AM. Hospitalist Physical - Physical exam Narrative exam: General appearance: Present: no acute distress, cachectic - EENT Eyes: Present: PERRL, EOM intact ENT: poor dentition - Neck Neck: Absent: masses or JVD, cervical LAD - Respiratory Respiratory effort: normal Respiratory: bilateral: diminished - Cardiovascular Rhythm: regular Heart Sounds: Present: S1 & S2. Absent: systolic murmur, diastolic murmur - Extremities Extremities: no ischemia, pulses intact, pulses symmetrical, normal temperature, normal color Peripheral Pulses: within normal limits - Abdominal General gastrointestinal: soft, non-tender, non-distended, normal bowel sounds - Integumentary Integumentary: Present: dry - Psychiatric Psychiatric: cooperative - Neurologic Neurologic: other (To hold conversation, intact cough/gag, pupils equal and reactive. Paraplegic from MS) - Constitutional Vitals: Temp Pulse Resp BP Pulse Ox 98.0 F 120 H 20 102/69 97 11/17/21 09:46 11/17/21 13:58 11/17/21 13:58 11/17/21 09:46 11/17/21 09:46 General appearance: Present: no acute distress, cachectic HEART Score - HEART Score Troponin: Troponin T 0.050 ng/mL (0.00-0.029) H 11/13/21 11:33 Results - Labs CBC & Chem 7: 11/16/21 04:00 11/16/21 04:00 Labs: Laboratory Last Values WBC 13.2 K/mm3 (4.5-11.0) H 11/16/21 04:00 RBC 3.37 M/mm3 (3.65-5.03) L 11/16/21 04:00 Hgb 8.3 gm/dl (11.8-15.2) L 11/16/21 04:00 Hct 26.6 % (35.5-45.6) L 11/16/21 04:00 MCV 79 fl (84-94) L 11/16/21 04:00 MCH 25 pg (28-32) L 11/16/21 04:00 MCHC 31 % (32-34) L 11/16/21 04:00 RDW 21.9 % (13.2-15.2) H 11/16/21 04:00 Plt Count 347 K/mm3 (140-440) 11/16/21 04:00 Add Manual Diff Complete 11/14/21 05:30 Total Counted 100 11/14/21 05:30 Seg Neutrophils % Paving Bed Maker 11/14/21 05:30 Seg Neuts % (Manual) 100.0 % (40.0-70.0) H 11/14/21 05:30 Band Neutrophils % 0 % 11/14/21 05:30 Lymphocytes % (Manual) 0 % (13.4-35.0) L 11/14/21 05:30 Reactive Lymphs % (Man) 0 % 11/14/21 05:30 Monocytes % (Manual) 0 % (0.0-7.3) 11/14/21 05:30 Eosinophils % (Manual) 0 % (0.0-4.3) 11/14/21 05:30 Basophils % (Manual) 0 % (0.0-1.8) 11/14/21 05:30 Metamyelocytes % 0 % 11/14/21 05:30 Myelocytes % 0 % 11/14/21 05:30 Promyelocytes % 0 % 11/14/21 05:30 Blast Cells % 0 % 11/14/21 05:30 Nucleated RBC % 1.0 % (0.0-0.9) H 11/14/21 05:30 Seg Neutrophils # Man 26.0 K/mm3 (1.8-7.7) H 11/14/21 05:30 Band Neutrophils # 0.0 K/mm3 11/14/21 05:30 Lymphocytes # (Manual) 0.0 K/mm3 (1.2-5.4) L 11/14/21 05:30 Abs React Lymphs (Man) 0.0 K/mm3 11/14/21 05:30 Monocytes # (Manual) 0.0 K/mm3 (0.0-0.8) 11/14/21 05:30 Eosinophils # (Manual) 0.0 K/mm3 (0.0-0.4) 11/14/21 05:30 Basophils # (Manual) 0.0 K/mm3 (0.0-0.1) 11/14/21 05:30 Metamyelocytes # 0.0 K/mm3 11/14/21 05:30 Myelocytes # 0.0 K/mm3 11/14/21 05:30 Promyelocytes # 0.0 K/mm3 11/14/21 05:30 Blast Cells # 0.0 K/mm3 11/14/21 05:30 WBC Morphology Not Reportable 11/14/21 05:30 Hypersegmented Neuts Not Reportable 11/14/21 05:30 Hyposegmented Neuts Not Reportable 11/14/21 05:30 Hypogranular Neuts Not Reportable 11/14/21 05:30 Smudge Cells Not Reportable 11/14/21 05:30 Toxic Granulation Not Reportable 11/14/21 05:30 Toxic Vacuolation Not Reportable 11/14/21 05:30 Dohle Bodies Not Reportable 11/14/21 05:30 Pelger-Huet Anomaly Not Reportable 11/14/21 05:30 Agata Rods Not Reportable 11/14/21 05:30 Platelet Estimate Consistent w auto 11/14/21 05:30 Clumped Platelets Not Reportable 11/14/21 05:30 Plt Clumps, EDTA Not Reportable 11/14/21 05:30 Large Platelets Not Reportable 11/14/21 05:30 Giant Platelets Not Reportable 11/14/21 05:30 Platelet Satelliting Not Reportable 11/14/21 05:30 Plt Morphology Comment Not Reportable 11/14/21 05:30 RBC Morphology Not Reportable 11/14/21 05:30 Dimorphic RBCs Not Reportable 11/14/21 05:30 Polychromasia Not Reportable 11/14/21 05:30 Hypochromasia 1+ 11/14/21 05:30 Poikilocytosis Not Reportable 11/14/21 05:30 Anisocytosis 1+ 06/29/22 05:30 Microcytosis Not Reportable 11/14/21 05:30 Macrocytosis Not Reportable 11/14/21 05:30 Spherocytes Not Reportable 11/14/21 05:30 Pappenheimer Bodies Not Reportable 11/14/21 05:30 Sickle Cells Not Reportable 11/14/21 05:30 Target Cells Not Reportable 11/14/21 05:30 Tear Drop Cells Not Reportable 11/14/21 05:30 Ovalocytes Few 11/14/21 05:30 Helmet Cells Not Reportable 11/14/21 05:30 [place] Bodies Not Reportable 11/14/21 05:30 [place] Rings Not Reportable 11/14/21 05:30 [place] Cells Not Reportable 11/14/21 05:30 Bite Cells Not Reportable 11/14/21 05:30 Crenated Cell Not Reportable 11/14/21 05:30 Elliptocytes Not Reportable 11/14/21 05:30 Acanthocytes (Spur) Not Reportable 11/14/21 05:30 Rouleaux Not Reportable 11/14/21 05:30 Hemoglobin C Crystals Not Reportable 11/14/21 05:30 Schistocytes Not Reportable 11/14/21 05:30 Malaria parasites Not Reportable 11/14/21 05:30 Joshua Bodies Not Reportable 11/14/21 05:30 Hem Pathologist Commnt No 11/14/21 05:30 PT 16.9 Sec. (12.2-14.9) H 11/13/21 09:03 INR 1.20 (0.87-1.13) H 11/13/21 09:03 APTT 32.0 Sec. (24.2-36.6) 11/13/21 09:03 ABG pH 7.384 pH Units (7.350-7.450) 11/14/21 03:45 ABG pCO2 35.5 mm Hg 11/14/21 03:45 ABG pO2 112.8 mm Hg (80.0-90.0) H 11/14/21 03:45 ABG HCO3 20.7 mmol/L (20.0-26.0) 11/14/21 03:45 ABG O2 Saturation 98.1 % (95.0-99.0) 11/14/21 03:45 ABG O2 Content 9.1 (0.0-44) 11/14/21 03:45 ABG Base Excess -4.0 mmol/L (-2.0-3.0) L 11/14/21 03:45 ABG Hemoglobin 6.6 gm/dl (14.0-18.0) L 11/14/21 03:45 ABG Carboxyhemoglobin 1.7 % (0.0-5.0) 11/14/21 03:45 ABG Methemoglobin 0.6 % (0.0-1.5) 11/14/21 03:45 Oxyhemoglobin 95.8 % (95.0-99.0) 11/14/21 03:45 FiO2 40 % 11/14/21 03:45 Sodium 133 mmol/L (137-145) L D 11/16/21 04:00 Potassium 3.3 mmol/L (3.6-5.0) L 11/16/21 04:00 Chloride 104.6 mmol/L (98-107) 11/16/21 04:00 Carbon Dioxide 18 mmol/L (22-30) L 11/16/21 04:00 Anion Gap 14 mmol/L 11/16/21 04:00 BUN 12 mg/dL (9-20) 11/16/21 04:00 Creatinine 0.3 mg/dL (0.8-1.3) L 11/16/21 04:00 Estimated GFR > 60 ml/min 11/16/21 04:00 BUN/Creatinine Ratio 40 % 11/16/21 04:00 Glucose 194 mg/dL (75-100) H 11/16/21 04:00 POC Glucose 87 mg/dL (70-105) 11/17/21 11:25 Calcium 7.4 mg/dL (8.4-10.2) L 11/16/21 04:00 Phosphorus 2.10 mg/dL (2.5-4.5) L 11/16/21 04:00 Magnesium 1.60 mg/dL (1.7-2.3) L 11/16/21 04:00 Iron 9 ug/dL (49-181) L 11/14/21 17:59 TIBC 155 mcg/dL (250-450) L 11/14/21 17:59 Total Bilirubin 0.30 mg/dL (0.1-1.2) 11/14/21 05:30 AST 14 units/L (5-40) 11/14/21 05:30 ALT 9 units/L (7-56) 11/14/21 05:30 Alkaline Phosphatase 80 units/L (35-129) 11/14/21 05:30 Troponin T 0.050 ng/mL (0.00-0.029) H 11/13/21 11:33 NT-Pro-B Natriuret Pep 1118 pg/mL (0-900) H 11/13/21 09:03 Total Protein 6.2 g/dL (6.3-8.2) L 11/14/21 05:30 Albumin 2.1 g/dL (3.9-5) L 11/14/21 05:30 Albumin/Globulin Ratio 0.5 % 11/14/21 05:30 Triglycerides 96 mg/dL (2-149) 11/13/21 11:33 Cholesterol 115 mg/dL (50-199) 11/13/21 11:33 LDL Cholesterol Direct 61 mg/dL (50-130) 11/13/21 11:33 HDL Cholesterol 28 mg/dL (40-59) L 11/13/21 11:33 Cholesterol/HDL Ratio 4.10 % 11/13/21 11:33 Vitamin B12 483.5 pg/mL (211-911) 11/14/21 17:59 TSH 1.680 mlU/mL (0.270-4.200) 11/13/21 09:03 Free T4 1.27 ng/dL (0.76-1.46) 11/13/21 09:03 Urine Color Yellow (Yellow) 11/13/21 11:12 Urine Turbidity Cloudy (Clear) 11/13/21 11:12 Urine pH 6.0 (5.0-7.0) 11/13/21 11:12 Ur Specific [place] 1.015 (1.003-1.030) 11/13/21 11:12 Urine Protein 100 mg/dl mg/dL (Negative) 11/13/21 11:12 Urine Glucose (UA) Negative mg/dL (Negative) 11/13/21 11:12 Urine Ketones 15 mg/dL (Negative) 11/13/21 11:12 Urine Blood Large (Negative) A 11/13/21 11:12 Urine Nitrite Negative (Negative) 11/13/21 11:12 Urine Bilirubin Negative (Negative) 11/13/21 11:12 Urine Urobilinogen 0.0 mg/dL (<2.0) 11/13/21 11:12 Ur Leukocyte Esterase Moderate (Negative) 11/13/21 11:12 Urine WBC (Auto) > 182.0 /HPF (0.0-6.0) H 11/13/21 11:12 Urine RBC (Auto) > 182.0 /HPF (0.0-6.0) 11/13/21 11:12 Urine Bacteria (Auto) 2+ /HPF (Negative) 11/13/21 11:12 Ur Yeast w [place]pha[place] Few /HPF 11/13/21 11:12 Urine Yeast (Budding) Few /HPF 11/13/21 11:12 Blood Type A POSITIVE 11/13/21 09:08 Antibody Screen Negative 11/13/21 09:08 Crossmatch See Detail 11/13/21 09:08 Microbiology: Microbiology 11/14/21 12:59 Urine,[place] Urine Culture - Preliminary 11/14/21 09:25 Peripheral/Venous Blood Culture - Preliminary NO GROWTH AFTER 72 HOURS 11/14/21 09:25 Peripheral/Venous Blood Culture - Preliminary NO GROWTH AFTER 72 HOURS [place]/IV: Voiding Method Suprapubic catheter Active Medications - Current Medications Current Medications: Generic Name Dose Route Start Last Admin Trade Name Freq PRN Reason Stop Dose Admin Acetaminophen 650 mg 11/13/21 13:07 Acetaminophen 650 Mg Rect Supp IN Q6H PRN Pain MILD(1-3)/Fever >100.5/CHIU Acetaminophen 650 mg 11/14/21 16:41 Acetaminophen 325 Mg Tab FEEDTUBE Q4H PRN Pain MILD(1-3)/Fever >100.5/CHIU Albuterol 2.5 mg 11/17/21 09:00 Albuterol 2.5 Mg/3 Ml Nebu IH Q4HRT PRN Shortness Of Breath Albuterol/Ipratropium 1 ampul 11/17/21 14:00 11/17/21 13:58 Ipratropium/Albuterol Sulfate 3 Ml Ampul.Neb IH 1 ampul TIDRT YE Administration Lipase/Protease/Amylase 1 each 11/16/21 11:34 Lipase 10,500/Protease 25,000/Amylase 43,750 (Units) Dr Reddy FEEDTUBE PRN PRN For Clogged Feeding Tube Artificial Tears 1 drops 11/15/21 10:00 11/17/21 09:31 Hypromellose 0.5% Ophth Soln 15 Ml OU 1 drops QDAY YE Administration Ascorbic Acid 500 mg 11/15/21 10:00 11/17/21 09:25 Ascorbic Acid 500 Mg Tab FEEDTUBE 500 mg QDAY YE Administration Dextrose 50 ml 11/15/21 12:05 11/16/21 13:25 Dextrose 50% In Water (25gm) 50 Ml Syringe IV 50 ml Q30MIN PRN Administration Hypoglycemia Protocol Docusate Sodium 100 mg 11/14/21 11:00 11/17/21 09:26 Docusate Sodium 100 Mg/10 Ml Oral Liqd FEEDTUBE Not Given BID YE Ferrous Sulfate 300 mg 11/15/21 10:00 11/17/21 09:25 Ferrous Sulfate 300 Mg (60mg Elemental Iron) / 5 Ml Oral Liqd PO 300 mg QDAY YE Administration Fish Oil 1,000 mg 11/14/21 22:00 11/17/21 09:26 Calvin-3 Fatty Acids/Fish Oil 1 Gram Cap PO 1,000 mg BID YE Administration Cefepime HCl 2 gm in 100 mls @ 200 mls/hr 11/13/21 22:00 11/17/21 05:53 Cefepime/Ns 2 Gm/100 Ml IV 11/18/21 22:29 200 mls/hr Q8H YE Administration Protocol Vancomycin HCl 1 gm in 250 mls @ 250 mls/hr 11/14/21 06:00 11/17/21 06:24 Vancomycin/Ns 1 Gm/250 Ml IV 11/19/21 05:59 250 mls/hr Q12H YE Administration Lansoprazole 30 mg 11/15/21 10:00 11/17/21 09:26 Lansoprazole 30 Mg Solutab FEEDTUBE 30 mg QDAY YE Administration Metoclopramide HCl 10 mg 11/13/21 21:18 Metoclopramide 10 Mg/2 Ml Inj IV Q6H PRN Nausea And Vomiting Morphine Sulfate 2 mg 11/13/21 13:11 11/17/21 10:22 Morphine 2 Mg/1 Ml Inj IV 2 mg Q4H PRN Administration Pain, Moderate (4-6) Multivitamins/Minerals 1 each 11/15/21 10:00 11/17/21 09:25 Multivitamins,Ther W-Minerals Tab PO 1 each QDAY YE Administration Ondansetron HCl 4 mg 11/13/21 21:18 Ondansetron 4 Mg/2 Ml Inj IV Q3H PRN Nausea And Vomiting Polyethylene Glycol 17 gm 11/15/21 10:00 11/17/21 09:26 Polyethylene Glycol 3350 17 Gm Powder FEEDTUBE Not Given QDAY YE Senna 17.2 mg 11/14/21 11:00 11/17/21 09:26 Sennosides 8.6 Mg Tab FEEDTUBE Not Given BID YE Simple Syrup 15 ml 11/16/21 11:34 Simple Syrup 15 Ml FEEDTUBE PRN PRN Hypoglycemia Simple Syrup 30 ml 11/16/21 11:34 Simple Syrup 15 Ml FEEDTUBE PRN PRN Hypoglycemia Sodium Bicarbonate 325 mg 11/16/21 11:34 Sodium Bicarbonate 325 Mg Tab FEEDTUBE PRN PRN For Clogged Feeding Tube Sodium Chloride 10 ml 11/13/21 22:00 11/17/21 09:26 Sodium Chloride 0.9% 10 Ml Flush Syringe IV 10 ml BID YE Administration Sodium Chloride 10 ml 11/13/21 21:18 Sodium Chloride 0.9% 10 Ml Flush Syringe IV PRN PRN LINE FLUSH Nutrition/Malnutrition Assess - Dietary Evaluation Nutrition/Malnutrition Findings: Nutrition Notes Start: 11/14/21 16:07 Freq: Status: Active Protocol: Document 11/16/21 11:20 MERRY (Rec: 11/16/21 11:39 MERRY [id number]) Nutrition Notes Initial or Follow up Brief Note Current Diagnosis COPD,Sepsis,Hypertension, Respiratory Failure, Malnutrition Other Pertinent Diagnosis COPD, CHF, Metabolic Encephalopathy, Dysphagia, Anemia, Hypotension, ... Current Diet TF-Vital AF 1.2 Darvin @ 65 ml/hr (from D 11/15). Height 6 ft Weight 75.9 kg [place] Body Weight (kg) 80.90 BMI 22.6 Weight change and time frame Discrepancy of 7.861 Kg body weight gain reporterd in 1 day . Weight Status Appropriate Subjective/Other Information RD consult for write/manage TF . TF was prescribed and order yesterday on 11/15. Pt was temporarly on NPO for PEG tube placement today 11/16 , according to RN notes. FLAG MAKER note on 11/16/21 09:14: Modified Barium Swallow study has been conducted. Patient presents with significantly reduced A-P bolus propulsion with premature spillage of all consistencies. Swallow reflex is delayed with some residuals in the pharynx, however, with a second swallow , residuals cleared. Laryngeal penetration was identified with thins. Although no aspiration was identified, the patient if not fed properly, is at significant risk for aspiration due to the factors stated above. He does not desire to be placed in an upright position and if fed rapidly or with a significant amount of food placed in the oral cavity without adequate clearance, the potential for aspiration is extremely high will will result in aspiration pneumonia. If the patient is fed under ideal conditions with small bolus volumes of food and liquids at a slow rate and allowed to effectively clear, the potential for aspiration is lessened. With the presence of lung diseases, it is vital that these precautions be strictly adhered to in the prevention of aspiration. Recommend a pureed diet with nectar thickened liquids. Patient should be fed upright at 90 degrees regardless of his resistance. Small bites and sips should be given, allowing the him to clear prior to additional boluses. NO STRAWS SHOULD BE USED. Patient must remain upright 30 minutes following the completion of a meal. A swallowing precaution sign will be placed above the patient's bed. THESE GUIDELINES MUST BE STRICTLY FOLLOWED OR THERE IS A POTENTIAL FOR THE PATIENT TO ASPIRATE. The patient's capacity to swallow will progressively digress based on his diagnoses; therefore, he will be followed to ensure continued safety.- END OF NOTE . Percent of energy/protein needs met: Prescribed TF-Vital AF 1.2 Darvin @ 65 ml/hr provides for energy/protein needs (1,885 Kcal/118 g) during LOS, 84% Kcal; 100% AA. #2 Nutrition Diagnosis Swallowing difficulty Diagnosis Progress(for reassessment Continues documentation) #1 Nutrition Diagnosis Malnutrition Diagnosis Progress(for reassessment Continues documentation) Is patient on ventilator? No Is Patient Ambulatory and/or Out of Bed No REE-([facility]-confined to bed) 1891.920 Kcal/Kg value to use for calculation 30 Approximate Energy Requirements Using 2277 kcal/Kg Calculation Used for Recommendations Kcal/kg Additional Notes Protein: 1.2-1.5 g/Kg IBW; 97- 122 g/day. Fluids: 1 ml/Kcal, or as per MD. Nutrition Intervention Nutrition Support: When pertinet (after PEG placement), resume TF-Vital AF 1.2 Darvin @ 65 ml/hr. Flush: 160 ml water Q 4 hr, or as per MD. Kcal 1,885 Protein (gm) 118 Carbohydrates (gm) 174 Fat (gm) 85 Fluid (mL) 1,274 Fiber (gm) 8 % RDI: 84% Kcal; 100% AA. Goal #1 Provide at least 75% of energy /protein needs through Enteral Feeding during LOS. Goal #2 Adjust the dietary intervention to better serve Pt's needs and clinical conditions during LOS. Follow-Up By: 11/23/21 Additional Comments When pertinent, continue monitoring TF tolerance and BM .
[2021-11-18] MEDS: VANCOMYCIN/NS 1 GM/250 ML 1 GM/250 ML BAG IV SCH (06:25)
[2021-11-18] MEDS: DEXTROSE 50% IN WATER (25GM) 50 ML SYRINGE IV PRN (06:28)
--- NOTE | 2021-11-18 08:09 | Progress Note ---
Assessment and Plan Assessment and plan: History Interval history: This is a 66 year old male who is a paraplegic, HTN, DM, DVT s/p [place] filter, GERD, asthma, dementia, MS, depression, UTI, Adult failure to thrive, suprapubic catheter, chronic constipation and dysphagia who presented to emergency department on 11/13 from his residential with increasing shortness of breath. In the emergency department patient received IV hydration per sepsis protocol for hypotension and tachycardia and started on Levophed and he was hypoxic and was placed in nonrebreather. Patient was intubated for respiratory distress. He was also started on antibiotics and CXR showed left pleural effusion. Work-up in the ED also showed leukocytosis and anemia with a hemoglobin of 6.2 and hematocrit of 20 and 1 unit PRBC was ordered. Patient was admitted to the hospitalist service with consults to [facility] with acute hypoxic respiratory failure, symptomatic anemia, sepsis. Hospital course to date: 11/14: H/H did not respond adequately to PRBC and we ordered to 1 unit of PRBC. Was on high-dose Levophed and vasopressin was ordered. 1 L LR bolus. Patient was started on bowel regimen, urine culture was sent. Sitter was discontinued. Patient will be on every 6 H&H and n.p.o. for now however will get meds through [place]obbhoff tube. GI was consulted who digitally disimpacted the patient at bedside. Gastric occult positive. 11/15: Patient received GoLytely yesterday evening and has had multiple bowel movements. Patient has agreed to PEG placement and will receive a modified barium swallow to evaluate appropriateness for PEG tube. Patient transferred to the floor. Repleted potassium and phosphate. 11/16: Modified barium swallow was somehow cancelled yesterday. Re-ordered. Patient has gone back and forth regarding PEG placement. I communicated to the patient that he could potentially aspirate and if he does not get the PEG. D/w Dr. Saxena who is coordinating with family. Final decision to be made by family/patient daughter Erica today. Placement of PEG potentially this afternoon by GI. CXR ordered due to hypoxia in afternoon. Left lung opacified, more interstitial edema apparent. Given Lasix 40 mg IV x 1 with good reponse. Limit fluid. NAD in follow up encounter. 11/17: PEG cancelled as patient declined yesterday. Advanced diet to puree with specific instructions per FLY RAIL OPERATOR note. Can discontinue NG if patient tolerating diet well. MRSA in tracheal aspirate noted. Continue Vancomycin for total of 7 day therapy for MRSA pneumonia (patient has defervesced, wbc ct stabilizing). D/c cefepime IV. 11/18: Continue IV Vancomycin, last does 11/20. Repeat CXR ordered in light of 11/16 s tudy, suspect pulmonary edema. May need diuresis today. AM labs pending, follow wbc count and potassium. Assessment and plan: This is a 66-year-old female with paraplegia, HTN, DM, DVT s/p [place] filter, GERD, asthma, dementia, MS, depression, FIT, chronic constipation and dysphagia admitted with sepsis, symptomatic anemia and acute hypoxic respiratory failure Neuro:h/o MS, paraplegia, depression -Sedation stopped by day RN -Reorientation as needed -Maintain sleep-wake cycle -Aspiration precautions -As needed analgesia -Hold home baclofen, soma, diazepam, fentanyl patch, remeron, lyrica for now -likely restart in AM -patient does not have dementia, orientedX4 on my exam. Cardiac: Hypotension, h/o HTN -Cardiology consulted, appreciate recommendations -Blood pressure monitoring per protocol -Vasopressor support with levophed, vaso if needed -MAP goal greater than 65 -02/22/2021 echocardiogram shows LVEF 50% Respiratory: Acute hypoxic respiratory failure, h/o asthma, MRSA pneumonia -[facility] consulted, appreciate recommendations -Intubated on 11/13 with 7.5 OETT at 23 at the lips and extubated 11/14 -Supplemental oxygen as needed -Currently on room air -Pulmonary hygiene -SPO2 monitoring per protocol -Vancomycin IV x 7 days. last day 11/20 GI: GIB, h/o dysphagia, GERD, chronic constipation, Failure to thrive -Per RN note patient had projectile vomiting in residential per EMS report -GI consulted, appreciate recommendations -s/p Protonix gtt -Restarted on lansoprazole -KUB shows severe constipation -NGT -Gastric aspirate occult positive -BR: Senokot S, Colace, MiraLAX, Dulcolax suppository -Patient was digitally disimpacted by GI 11/14 -s/p GoLytely -Modified barium swallow to assess for aspiratoin. pending to evaluate appropriateness for PEG : h/o suprapubic catheter, hypokalemia -Monitor intake and output -Renally dose medications -Avoid nephrotoxic medications -Trend BMP, ERP for electrolytes ID: Septic shock, MRSA Pneumonia -Presented with leukocytosis, hypotension, cloudy UA, multiple decubitus ulcers scattered on body, hypoxic -S/p 2 L normal saline bolus in the ED, 1 L LR bolus in the ICU -f/u blood culture and urine culture -UA noted -Monitor WBC and temperature curve - Bcx: NGTD - sputum cx: + MRSA - urine cx: rola, does not merit tx. - continue vancomycin IV x 7 day total therapy,d/c cefepime. Endo: h/o DM -Avoid hypoglycemia -SSI -Accu-Cheks q. every 6 Heme: Symptomatic anemia, r/o DVT s/p [place] filter -Presented with H/H of 6.2/20.0 -S/p 1 unit PRBC -H/H 6.4/21.2 -2 unit PRBC -Obtain H/H 2 hours post transfusion -Hold home warfarin -Avoid chemical anticoagulation in setting of severe anemia -q6hr H/H -Trend CBC -Transfuse hemoglobin less than 7 -SCDs to BLE while in bed #Advance care planning Disease education conducted, care plan discussed, diagnoses discussed, prognosis discussed, patient is full code, patient acknowledges understanding and agree with care plan, +30 minutes. History Interval history: no acute complaints. Breathing well. No issues overnight. Hospitalist Physical - Physical exam Narrative exam: General appearance: Present: no acute distress, cachectic - EENT Eyes: Present: PERRL, EOM intact ENT: poor dentition - Neck Neck: Absent: masses or JVD, cervical LAD - Respiratory Respiratory effort: normal Respiratory: bilateral: diminished - Cardiovascular Rhythm: regular Heart Sounds: Present: S1 & S2. Absent: systolic murmur, diastolic murmur - Extremities Extremities: no ischemia, pulses intact, pulses symmetrical, normal temperature, normal color Peripheral Pulses: within normal limits - Abdominal General gastrointestinal: soft, non-tender, non-distended, normal bowel sounds - Integumentary Integumentary: Present: dry - Psychiatric Psychiatric: cooperative - Neurologic Neurologic: other (To hold conversation, intact cough/gag, pupils equal and r eactive. Paraplegic from MS) - Constitutional Vitals: Temp Pulse Resp BP Pulse Ox 98.5 F 105 H 18 102/65 100 11/18/21 05:24 11/18/21 05:24 11/18/21 05:24 11/18/21 05:24 11/18/21 05:24 General appearance: Present: no acute distress, cachectic HEART Score - HEART Score Troponin: Troponin T 0.050 ng/mL (0.00-0.029) H 11/13/21 11:33 Results - Labs CBC & Chem 7: 11/16/21 04:00 11/16/21 04:00 Labs: Laboratory Last Values WBC 13.2 K/mm3 (4.5-11.0) H 11/16/21 04:00 RBC 3.37 M/mm3 (3.65-5.03) L 11/16/21 04:00 Hgb 8.3 gm/dl (11.8-15.2) L 11/16/21 04:00 Hct 26.6 % (35.5-45.6) L 11/16/21 04:00 MCV 79 fl (84-94) L 11/16/21 04:00 MCH 25 pg (28-32) L 11/16/21 04:00 MCHC 31 % (32-34) L 11/16/21 04:00 RDW 21.9 % (13.2-15.2) H 11/16/21 04:00 Plt Count 347 K/mm3 (140-440) 11/16/21 04:00 Add Manual Diff Complete 11/14/21 05:30 Total Counted 100 11/14/21 05:30 Seg Neutrophils % Circle Shear Operator 11/14/21 05:30 Seg Neuts % (Manual) 100.0 % (40.0-70.0) H 11/14/21 05:30 Band Neutrophils % 0 % 11/14/21 05:30 Lymphocytes % (Manual) 0 % (13.4-35.0) L 11/14/21 05:30 Reactive Lymphs % (Man) 0 % 11/14/21 05:30 Monocytes % (Manual) 0 % (0.0-7.3) 11/14/21 05:30 Eosinophils % (Manual) 0 % (0.0-4.3) 11/14/21 05:30 Basophils % (Manual) 0 % (0.0-1.8) 11/14/21 05:30 Metamyelocytes % 0 % 11/14/21 05:30 Myelocytes % 0 % 11/14/21 05:30 Promyelocytes % 0 % 11/14/21 05:30 Blast Cells % 0 % 11/14/21 05:30 Nucleated RBC % 1.0 % (0.0-0.9) H 11/14/21 05:30 Seg Neutrophils # Man 26.0 K/mm3 (1.8-7.7) H 11/14/21 05:30 Band Neutrophils # 0.0 K/mm3 11/14/21 05:30 Lymphocytes # (Manual) 0.0 K/mm3 (1.2-5.4) L 11/14/21 05:30 Abs React Lymphs (Man) 0.0 K/mm3 11/14/21 05:30 Monocytes # (Manual) 0.0 K/mm3 (0.0-0.8) 11/14/21 05:30 Eosinophils # (Manual) 0.0 K/mm3 (0.0-0.4) 11/14/21 05:30 Basophils # (Manual) 0.0 K/mm3 (0.0-0.1) 11/14/21 05:30 Metamyelocytes # 0.0 K/mm3 11/14/21 05:30 Myelocytes # 0.0 K/mm3 11/14/21 05:30 Promyelocytes # 0.0 K/mm3 11/14/21 05:30 Blast Cells # 0.0 K/mm3 11/14/21 05:30 WBC Morphology Not Reportable 11/14/21 05:30 Hypersegmented Neuts Not Reportable 11/14/21 05:30 Hyposegmented Neuts Not Reportable 11/14/21 05:30 Hypogranular Neuts Not Reportable 11/14/21 05:30 Smudge Cells Not Reportable 11/14/21 05:30 Toxic Granulation Not Reportable 11/14/21 05:30 Toxic Vacuolation Not Reportable 11/14/21 05:30 Dohle Bodies Not Reportable 11/14/21 05:30 Pelger-Huet Anomaly Not Reportable 11/14/21 05:30 Agata Rods Not Reportable 11/14/21 05:30 Platelet Estimate Consistent w auto 11/14/21 05:30 Clumped Platelets Not Reportable 11/14/21 05:30 Plt Clumps, EDTA Not Reportable 11/14/21 05:30 Large Platelets Not Reportable 11/14/21 05:30 Giant Platelets Not Reportable 11/14/21 05:30 Platelet Satelliting Not Reportable 11/14/21 05:30 Plt Morphology Comment Not Reportable 11/14/21 05:30 RBC Morphology Not Reportable 11/14/21 05:30 Dimorphic RBCs Not Reportable 11/14/21 05:30 Polychromasia Not Reportable 11/14/21 05:30 Hypochromasia 1+ 11/14/21 05:30 Poikilocytosis Not Reportable 11/14/21 05:30 Anisocytosis 1+ 11/14/21 05:30 Microcytosis Not Reportable 11/14/21 05:30 Macrocytosis Not Reportable 11/14/21 05:30 Spherocytes Not Reportable 11/14/21 05:30 Pappenheimer Bodies Not Reportable 11/14/21 05:30 Sickle Cells Not Reportable 11/14/21 05:30 Target Cells Not Reportable 11/14/21 05:30 Tear Drop Cells Not Reportable 11/14/21 05:30 Ovalocytes Few 11/14/21 05:30 Helmet Cells Not Reportable 11/14/21 05:30 [place] Bodies Not Reportable 11/14/21 05:30 [place] Rings Not Reportable 11/14/21 05:30 [place] Cells Not Reportable 11/14/21 05:30 Bite Cells Not Reportable 11/14/21 05:30 Crenated Cell Not Reportable 11/14/21 05:30 Elliptocytes Not Reportable 11/14/21 05:30 Acanthocytes (Spur) Not Reportable 11/14/21 05:30 Rouleaux Not Reportable 11/14/21 05:30 Hemoglobin C Crystals Not Reportable 11/14/21 05:30 Schistocytes Not Reportable 11/14/21 05:30 Malaria parasites Not Reportable 11/14/21 05:30 [place] Bodies Not Reportable 11/14/21 05:30 Hem Pathologist Commnt No 11/14/21 05:30 PT 16.9 Sec. (12.2-14.9) H 11/13/21 09:03 INR 1.20 (0.87-1.13) H 11/13/21 09:03 APTT 32.0 Sec. (24.2-36.6) 11/13/21 09:03 ABG pH 7.384 pH Units (7.350-7.450) 11/14/21 03:45 ABG pCO2 35.5 mm Hg 11/14/21 03:45 ABG pO2 112.8 mm Hg (80.0-90.0) H 11/14/21 03:45 ABG HCO3 20.7 mmol/L (20.0-26.0) 11/14/21 03:45 ABG O2 Saturation 98.1 % (95.0-99.0) 11/14/21 03:45 ABG O2 Content 9.1 (0.0-44) 11/14/21 03:45 ABG Base Excess -4.0 mmol/L (-2.0-3.0) L 11/14/21 03:45 ABG Hemoglobin 6.6 gm/dl (14.0-18.0) L 11/14/21 03:45 ABG Carboxyhemoglobin 1.7 % (0.0-5.0) 11/14/21 03:45 ABG Methemoglobin 0.6 % (0.0-1.5) 11/14/21 03:45 Oxyhemoglobin 95.8 % (95.0-99.0) 11/14/21 03:45 FiO2 40 % 11/14/21 03:45 Sodium 133 mmol/L (137-145) L D 11/16/21 04:00 Potassium 3.3 mmol/L (3.6-5.0) L 11/16/21 04:00 Chloride 104.6 mmol/L (98-107) 11/16/21 04:00 Carbon Dioxide 18 mmol/L (22-30) L 11/16/21 04:00 Anion Gap 14 mmol/L 11/16/21 04:00 BUN 12 mg/dL (9-20) 11/16/21 04:00 Creatinine 0.3 mg/dL (0.8-1.3) L 11/16/21 04:00 Estimated GFR > 60 ml/min 11/16/21 04:00 BUN/Creatinine Ratio 40 % 11/16/21 04:00 Glucose 194 mg/dL (75-100) H 11/16/21 04:00 POC Glucose 74 mg/dL (70-105) 11/18/21 05:54 Calcium 7.4 mg/dL (8.4-10.2) L 11/16/21 04:00 Phosphorus 2.10 mg/dL (2.5-4.5) L 11/16/21 04:00 Magnesium 1.60 mg/dL (1.7-2.3) L 11/16/21 04:00 Iron 9 ug/dL (49-181) L 11/14/21 17:59 TIBC 155 mcg/dL (250-450) L 11/14/21 17:59 Total Bilirubin 0.30 mg/dL (0.1-1.2) 11/14/21 05:30 AST 14 units/L (5-40) 11/14/21 05:30 ALT 9 units/L (7-56) 11/14/21 05:30 Alkaline Phosphatase 80 units/L (35-129) 11/14/21 05:30 Troponin T 0.050 ng/mL (0.00-0.029) H 11/13/21 11:33 NT-Pro-B Natriuret Pep 1118 pg/mL (0-900) H 11/13/21 09:03 Total Protein 6.2 g/dL (6.3-8.2) L 11/14/21 05:30 Albumin 2.1 g/dL (3.9-5) L 11/14/21 05:30 Albumin/Globulin Ratio 0.5 % 11/14/21 05:30 Triglycerides 96 mg/dL (2-149) 11/13/21 11:33 Cholesterol 115 mg/dL (50-199) 11/13/21 11:33 LDL Cholesterol Direct 61 mg/dL (50-130) 11/13/21 11:33 HDL Cholesterol 28 mg/dL (40-59) L 11/13/21 11:33 Cholesterol/HDL Ratio 4.10 % 11/13/21 11:33 Vitamin B12 483.5 pg/mL (211-911) 11/14/21 17:59 TSH 1.680 mlU/mL (0.270-4.200) 11/13/21 09:03 Free T4 1.27 ng/dL (0.76-1.46) 11/13/21 09:03 Urine Color Yellow (Yellow) 11/13/21 11:12 Urine Turbidity Cloudy (Clear) 11/13/21 11:12 Urine pH 6.0 (5.0-7.0) 11/13/21 11:12 Ur Specific [place] 1.015 (1.003-1.030) 11/13/21 11:12 Urine Protein 100 mg/dl mg/dL (Negative) 11/13/21 11:12 Urine Glucose (UA) Negative mg/dL (Negative) 11/13/21 11:12 Urine Ketones 15 mg/dL (Negative) 11/13/21 11:12 Urine Blood Large (Negative) A 11/13/21 11:12 Urine Nitrite Negative (Negative) 11/13/21 11:12 Urine Bilirubin Negative (Negative) 11/13/21 11:12 Urine Urobilinogen 0.0 mg/dL (<2.0) 11/13/21 11:12 Ur Leukocyte Esterase Moderate (Negative) 11/13/21 11:12 Urine WBC (Auto) > 182.0 /HPF (0.0-6.0) H 11/13/21 11:12 Urine RBC (Auto) > 182.0 /HPF (0.0-6.0) 11/13/21 11:12 Urine Bacteria (Auto) 2+ /HPF (Negative) 11/13/21 11:12 Ur Yeast w Hyphae Few /HPF 11/13/21 11:12 Urine Yeast (Budding) Few /HPF 11/13/21 11:12 Vancomycin Trough 26.4 ug/mL (5.0-20.0) H 11/17/21 Unknown Blood Type A POSITIVE 11/13/21 09:08 Antibody Screen Negative 11/13/21 09:08 Crossmatch See Detail 11/13/21 09:08 Microbiology: Microbiology 11/14/21 12:59 Urine,[place] Urine Culture - Final Rola Albicans 11/14/21 09:25 Peripheral/Venous Blood Culture - Preliminary NO GROWTH AFTER 72 HOURS 11/14/21 09:25 Peripheral/Venous Blood Culture - Preliminary NO GROWTH AFTER 72 HOURS [place]/IV: Voiding Method Suprapubic catheter Active Medications - Current Medications Current Medications: Generic Name Dose Route Start Last Admin Trade Name Freq PRN Reason Stop Dose Admin Acetaminophen 650 mg 11/13/21 13:07 Acetaminophen 650 Mg Rect Supp ID Q6H PRN Pain MILD(1-3)/Fever >100.5/CHIU Albuterol 2.5 mg 11/17/21 09:00 Albuterol 2.5 Mg/3 Ml Nebu IH Q4HRT PRN Shortness Of Breath Albuterol/Ipratropium 1 ampul 11/17/21 14:00 11/17/21 21:04 Ipratropium/Albuterol Sulfate 3 Ml Ampul.Neb IH 1 ampul TIDRT YE Administration Artificial Tears 1 drops 11/15/21 10:00 11/17/21 09:31 Hypromellose 0.5% Ophth Soln 15 Ml OU 1 drops QDAY YE Administration Dextrose 50 ml 11/15/21 12:05 11/18/21 06:28 Dextrose 50% In Water (25gm) 50 Ml Syringe IV 50 ml Q30MIN PRN Administration Hypoglycemia Protocol Ferrous Sulfate 300 mg 11/15/21 10:00 11/17/21 09:25 Ferrous Sulfate 300 Mg (60mg Elemental Iron) / 5 Ml Oral Liqd PO 300 mg QDAY YE Administration Fish Oil 1,000 mg 11/14/21 22:00 11/17/21 21:32 Jack-3 Fatty Acids/Fish Oil 1 Gram Cap PO 1,000 mg BID YE Administration Metoclopramide HCl 10 mg 11/13/21 21:18 Metoclopramide 10 Mg/2 Ml Inj IV Q6H PRN Nausea And Vomiting Morphine Sulfate 2 mg 11/13/21 13:11 11/17/21 21:39 Morphine 2 Mg/1 Ml Inj IV 2 mg Q4H PRN Administration Pain, Moderate (4-6) Multivitamins/Minerals 1 each 11/15/21 10:00 11/17/21 09:25 Multivitamins,Ther W-Minerals Tab PO 1 each QDAY YE Administration Ondansetron HCl 4 mg 11/13/21 21:18 Ondansetron 4 Mg/2 Ml Inj IV Q3H PRN Nausea And Vomiting Pantoprazole Sodium 40 mg 11/18/21 08:00 Pantoprazole 40 Mg Tab PO QDAC YE Polyethylene Glycol 17 gm 11/18/21 07:57 Polyethylene Glycol 3350 17 Gm Powder PO BID PRN Laxative Effect Senna 8.6 mg 11/18/21 07:56 Sennosides 8.6 Mg Tab PO Q12H PRN Laxative Effect Sodium Chloride 10 ml 11/13/21 22:00 11/17/21 21:33 Sodium Chloride 0.9% 10 Ml Flush Syringe IV 10 ml BID YE Administration Sodium Chloride 10 ml 11/13/21 21:18 Sodium Chloride 0.9% 10 Ml Flush Syringe IV PRN PRN LINE FLUSH Nutrition/Malnutrition Assess - Dietary Evaluation Nutrition/Malnutrition Findings: Nutrition Notes Start: 11/14/21 16:07 Freq: Status: Active Protocol: Document 11/16/21 11:20 MERRY (Rec: 11/16/21 11:39 MERRY [id number]) Nutrition Notes Initial or Follow up Brief Note Current Diagnosis COPD,Sepsis,Hypertension, Respiratory Failure, Malnutrition Other Pertinent Diagnosis COPD, CHF, Metabolic Encephalopathy, Dysphagia, Anemia, Hypotension, ... Current Diet TF-Vital AF 1.2 Darvin @ 65 ml/hr (from D 11/15). Height 6 ft Weight 75.9 kg Challenge Body Weight (kg) 80.90 BMI 22.6 Weight change and time frame Discrepancy of 7.861 Kg body weight gain reporterd in 1 day . Weight Status Appropriate Subjective/Other Information RD consult for write/manage TF . TF was prescribed and order yesterday on 11/15. Pt was temporarly on NPO for PEG tube placement today 11/16 , according to RN notes. FLY RAIL OPERATOR note on 11/16/21 09:14: Modified Barium Swallow study has been conducted. Patient presents with significantly reduced A-P bolus propulsion with premature spillage of all consistencies. Swallow reflex is delayed with some residuals in the pharynx, however, with a second swallow , residuals cleared. Laryngeal penetration was identified with thins. Although no aspiration was identified, the patient if not fed properly, is at significant risk for aspiration due to the factors stated above. He does not desire to be placed in an upright position and if fed rapidly or with a significant amount of food placed in the oral cavity without adequate clearance, the potential for aspiration is extremely high will will result in aspiration pneumonia. If the patient is fed under ideal conditions with small bolus volumes of food and liquids at a slow rate and allowed to effectively clear, the potential for aspiration is lessened. With the presence of lung diseases, it is vital that these precautions be strictly adhered to in the prevention of aspiration. Recommend a pureed diet with nectar thickened liquids. Patient should be fed upright at 90 degrees regardless of his resistance. Small bites and sips should be given, allowing the him to clear prior to additional boluses. NO STRAWS SHOULD BE USED. Patient must remain upright 30 minutes following the completion of a meal. A swallowing precaution sign will be placed above the patient's bed. THESE GUIDELINES MUST BE STRICTLY FOLLOWED OR THERE IS A POTENTIAL FOR THE PATIENT TO ASPIRATE. The patient's capacity to swallow will progressively digress based on his diagnoses; therefore, he will be followed to ensure continued safety.- END OF NOTE . Percent of energy/protein needs met: Prescribed TF-Vital AF 1.2 Darvin @ 65 ml/hr provides for energy/protein needs (1,885 Kcal/118 g) during LOS, 84% Kcal; 100% AA. #2 Nutrition Diagnosis Swallowing difficulty Diagnosis Progress(for reassessment Continues documentation) #1 Nutrition Diagnosis Malnutrition Diagnosis Progress(for reassessment Continues documentation) Is patient on ventilator? No Is Patient Ambulatory and/or Out of Bed No REE-([facility] [place]-confined to bed) 1891.920 Kcal/Kg value to use for calculation 30 Approximate Energy Requirements Using 2277 kcal/Kg Calculation Used for Recommendations Kcal/kg Additional Notes Protein: 1.2-1.5 g/Kg IBW; 97- 122 g/day. Fluids: 1 ml/Kcal, or as per MD. Nutrition Intervention Nutrition Support: When pertinet (after PEG placement), resume TF-Vital AF 1.2 Darvin @ 65 ml/hr. Flush: 160 ml water Q 4 hr, or as per MD. Kcal 1,885 Protein (gm) 118 Carbohydrates (gm) 174 Fat (gm) 85 Fluid (mL) 1,274 Fiber (gm) 8 % RDI: 84% Kcal; 100% AA. Goal #1 Provide at least 75% of energy /protein needs through Enteral Feeding during LOS. Goal #2 Adjust the dietary intervention to better serve Pt's needs and clinical conditions during LOS. Follow-Up By: 11/23/21 Additional Comments When pertinent, continue monitoring TF tolerance and BM .
[2021-11-18] MEDS ORDERED: POLYETHYLENE GLYCOL 3350 17 GM POWDER PO PRN (08:30)
[2021-11-18] MEDS ORDERED: SENNOSIDES 8.6 MG TAB PO PRN (08:30)
[2021-11-18] MEDS: IPRATROPIUM/ALBUTEROL SULFATE 3 ML AMPUL.NEB IH SCH ×3 (08:41→20:03)
--- NOTE | 2021-11-18 09:54 | XRay Report ---
CHEST 1 VIEW INDICATION / CLINICAL INFORMATION: pulmonary edema. COMPARISON: 11/16/2021 FINDINGS: SUPPORT DEVICES: Venous access catheter remains in stable and satisfactory position. No other tubes a nd lines are present. HEART / MEDIASTINUM: Stable. LUNGS / PLEURA: There is improving aeration within the left upper lobe. Loculated left basilar pneumo thorax persists unchanged. There is increasing pleural-parenchymal disease within the right lung prob ably representing increasing pleural effusion. ADDITIONAL FINDINGS: No significant additional findings. IMPRESSION: 1. Partial re-aeration of the left upper lobe. 2. Worsening pleural-parenchymal disease, right lung, most likely mostly due to enlarging pleural eff usion. 3. Stable left basilar loculated pneumothorax Signer Name: Jerica Chowdhury MD Signed: 11/18/2021 9:50 AM Workstation Name: [id number]
[2021-11-18] MEDS: MULTIVITAMINS,THER W-MINERALS TAB PO SCH (10:03)
[2021-11-18] MEDS: OMEGA-3 FATTY ACIDS/FISH OIL 1 GRAM CAP PO SCH ×2 (10:03→22:21)
[2021-11-18] MEDS: FERROUS SULFATE 300 MG (60MG Elemental Iron) / 5 mL ORAL LIQD PO SCH (10:03)
[2021-11-18] MEDS: HYPROMELLOSE 0.5% OPHTH SOLN 15 ML OU SCH (10:03)
[2021-11-18] MEDS: PANTOPRAZOLE 40 MG TAB PO SCH (10:03)
[2021-11-18] MEDS ORDERED: VANCOMYCIN 1,500 MG in SODIUM CHLORIDE 0.9% 500 ML 500 ML IV ONE (21:15)
[2021-11-18] MEDS ORDERED: VANCOMYCIN PHARMACY TO DOSE IV SCH (22:00)
[2021-11-19] MEDS: MORPHINE 2 MG/1 ML INJ IV PRN ×2 (00:09→10:09)
--- NOTE | 2021-11-19 08:41 | Progress Note ---
Assessment and Plan Assessment and plan: History Interval history: This is a 66 year old male who is a paraplegic, HTN, DM, DVT s/p Herlinda filter, GERD, asthma, dementia, MS, depression, UTI, Adult failure to thrive, suprapubic catheter, chronic constipation and dysphagia who presented to emergency department on 11/13 from his [facility] with increasing shortness of breath. In the emergency department patient received IV hydration per sepsis protocol for hypotension and tachycardia and started on Levophed and he was hypoxic and was placed in nonrebreather. Patient was intubated for respiratory distress. He was also started on antibiotics and CXR showed left pleural effusion. Work-up in the ED also showed leukocytosis and anemia with a hemoglobin of 6.2 and hematocrit of 20 and 1 unit PRBC was ordered. Patient was admitted to the hospitalist service with consults to [facility] with acute hypoxic respiratory failure, symptomatic anemia, sepsis. Hospital course to date: 11/14: H/H did not respond adequately to PRBC and we ordered to 1 unit of PRBC. Was on high-dose Levophed and vasopressin was ordered. 1 L LR bolus. Patient was started on bowel regimen, urine culture was sent. Sitter was discontinued. Patient will be on every 6 H&H and n.p.o. for now however will get meds through [place]obb[place] tube. GI was consulted who digitally disimpacted the patient at bedside. Gastric occult positive. 11/15: Patient received GoLytely yesterday evening and has had multiple bowel movements. Patient has agreed to PEG placement and will receive a modified barium swallow to evaluate appropriateness for PEG tube. Patient transferred to the floor. Repleted potassium and phosphate. 11/16: Modified barium swallow was somehow cancelled yesterday. Re-ordered. Patient has gone back and forth regarding PEG placement. I communicated to the patient that he could potentially aspirate and if he does not get the PEG. D/w Dr. Saxena who is coordinating with family. Final decision to be made by family/patient daughter Erica today. Placement of PEG potentially this afternoon by GI. CXR ordered due to hypoxia in afternoon. Left lung opacified, more interstitial edema apparent. Given Lasix 40 mg IV x 1 with good reponse. Limit fluid. NAD in follow up encounter. 11/17: PEG cancelled as patient declined yesterday. Advanced diet to puree with specific instructions per HEALTH ADMINISTRATOR note. Can discontinue NG if patient tolerating diet well. MRSA in tracheal aspirate noted. Continue Vancomycin for total of 7 day therapy for MRSA pneumonia (patient has defervesced, wbc ct stabilizing). D/c cefepime IV. 11/18: Continue IV Vancomycin, last does 11/20. Repeat CXR ordered in light of 11/16 s tudy, suspect pulmonary edema. May need diuresis today. AM labs pending, follow wbc count and potassium. 11/19: last dose vancomycin likely tomorrow. Labs ordered still not completed. D/w RN to notify lab of delay. May consider initiating lasix pending BMP. Plan for d/c tomorrow back to SNF. Assessment and plan: This is a 66-year-old female with paraplegia, HTN, DM, DVT s/p [place] filter, GERD, asthma, dementia, MS, depression, FIT, chronic constipation and dysphagia admitted with sepsis, symptomatic anemia and acute hypoxic respiratory failure Neuro:h/o MS, paraplegia, depression -Sedation stopped by day RN -Reorientation as needed -Maintain sleep-wake cycle -Aspiration precautions -As needed analgesia -Hold home baclofen, soma, diazepam, fentanyl patch, remeron, lyrica for now -likely restart in AM -patient does not have dementia, orientedX4 on my exam. Cardiac: Hypotension, h/o HTN -Cardiology consulted, appreciate recommendations -Blood pressure monitoring per protocol -Vasopressor support with levophed, vaso if needed -MAP goal greater than 65 -02/22/2021 echocardiogram shows LVEF 50% Respiratory: Acute hypoxic respiratory failure, h/o asthma, MRSA pneumonia -[facility] consulted, appreciate recommendations -Intubated on 11/13 with 7.5 OETT at 23 at the lips and extubated 11/14 -Supplemental oxygen as needed -Currently on room air -Pulmonary hygiene -SPO2 monitoring per protocol -Vancomycin IV x 7 days. last day 11/20 GI: GIB, h/o dysphagia, GERD, chronic constipation, Failure to thrive -Per RN note patient had projectile vomiting in [facility] per EMS report -GI consulted, appreciate recommendations -s/p Protonix gtt -Restarted on lansoprazole -KUB shows severe constipation -NGT -Gastric aspirate occult positive -BR: Senokot S, Colace, MiraLAX, Dulcolax suppository -Patient was digitally disimpacted by GI 11/14 -s/p GoLytely -Modified barium swallow to assess for aspiratoin. pending to evaluate appropriateness for PEG : h/o suprapubic catheter, hypokalemia -Monitor intake and output -Renally dose medications -Avoid nephrotoxic medications -Trend BMP, ERP for electrolytes ID: Septic shock, MRSA Pneumonia -Presented with leukocytosis, hypotension, cloudy UA, multiple decubitus ulcers scattered on body, hypoxic -S/p 2 L normal saline bolus in the ED, 1 L LR bolus in the ICU -f/u blood culture and urine culture -UA noted -Monitor WBC and temperature curve - Bcx: NGTD - sputum cx: + MRSA - urine cx: rola, does not merit tx. - continue vancomycin IV x 7 day total therapy,d/c cefepime. Endo: h/o DM -Avoid hypoglycemia -SSI -Accu-Cheks q. every 6 Heme: Symptomatic anemia, r/o DVT s/p Carman filter -Presented with H/H of 6.2/20.0 -S/p 1 unit PRBC -H/H 6.4/21.2 -2 unit PRBC -Obtain H/H 2 hours post transfusion -Hold home warfarin -Avoid chemical anticoagulation in setting of severe anemia -q6hr H/H -Trend CBC -Transfuse hemoglobin less than 7 -SCDs to BLE while in bed #Advance care planning Disease education conducted, care plan discussed, diagnoses discussed, prognosis discussed, patient is full code, patient acknowledges understanding and agree with care plan, +30 minutes. History Interval history: NO acute complaints this AM. Hospitalist Physical - Physical exam Narrative exam: General appearance: Present: no acute distress, cachectic - EENT Eyes: Present: PERRL, EOM intact ENT: poor dentition - Neck Neck: Absent: masses or JVD, cervical LAD - Respiratory Respiratory effort: normal Respiratory: bilateral: diminished - Cardiovascular Rhythm: regular Heart Sounds: Present: S1 & S2. Absent: systolic murmur, diastolic murmur - Extremities Extremities: no ischemia, pulses intact, pulses symmetrical, normal temperature, normal color Peripheral Pulses: within normal limits - Abdominal General gastrointestinal: soft, non-tender, non-distended, normal bowel sounds - Integumentary Integumentary: Present: dry - Psychiatric Psychiatric: cooperative - Neurologic Neurologic: other (To hold conversation, intact cough/gag, pupils equal and reactive. Paraplegic from MS) - Constitutional Vitals: Temp Pulse Resp BP Pulse Ox 97.7 F 104 H 18 104/62 100 11/19/21 07:54 11/19/21 07:54 11/19/21 07:54 11/19/21 07:54 11/19/21 08:25 General appearance: Present: no acute distress, cachectic HEART Score - HEART Score Troponin: Troponin T 0.050 ng/mL (0.00-0.029) H 11/13/21 11:33 Results - Labs CBC & Chem 7: 11/16/21 04:00 11/16/21 04:00 Labs: Laboratory Last Values WBC 13.2 K/mm3 (4.5-11.0) H 11/16/21 04:00 RBC 3.37 M/mm3 (3.65-5.03) L 11/16/21 04:00 Hgb 8.3 gm/dl (11.8-15.2) L 11/16/21 04:00 Hct 26.6 % (35.5-45.6) L 11/16/21 04:00 MCV 79 fl (84-94) L 11/16/21 04:00 MCH 25 pg (28-32) L 11/16/21 04:00 MCHC 31 % (32-34) L 11/16/21 04:00 RDW 21.9 % (13.2-15.2) H 11/16/21 04:00 Plt Count 347 K/mm3 (140-440) 11/16/21 04:00 Add Manual Diff Complete 11/14/21 05:30 Total Counted 100 11/14/21 05:30 Seg Neutrophils % Bread Wrapping Machine Feeder 11/14/21 05:30 Seg Neuts % (Manual) 100.0 % (40.0-70.0) H 11/14/21 05:30 Band Neutrophils % 0 % 11/14/21 05:30 Lymphocytes % (Manual) 0 % (13.4-35.0) L 11/14/21 05:30 Reactive Lymphs % (Man) 0 % 11/14/21 05:30 Monocytes % (Manual) 0 % (0.0-7.3) 11/14/21 05:30 Eosinophils % (Manual) 0 % (0.0-4.3) 11/14/21 05:30 Basophils % (Manual) 0 % (0.0-1.8) 11/14/21 05:30 Metamyelocytes % 0 % 11/14/21 05:30 Myelocytes % 0 % 11/14/21 05:30 Promyelocytes % 0 % 11/14/21 05:30 Blast Cells % 0 % 11/14/21 05:30 Nucleated RBC % 1.0 % (0.0-0.9) H 11/14/21 05:30 Seg Neutrophils # Man 26.0 K/mm3 (1.8-7.7) H 11/14/21 05:30 Band Neutrophils # 0.0 K/mm3 11/14/21 05:30 Lymphocytes # (Manual) 0.0 K/mm3 (1.2-5.4) L 11/14/21 05:30 Abs React Lymphs (Man) 0.0 K/mm3 11/14/21 05:30 Monocytes # (Manual) 0.0 K/mm3 (0.0-0.8) 11/14/21 05:30 Eosinophils # (Manual) 0.0 K/mm3 (0.0-0.4) 11/14/21 05:30 Basophils # (Manual) 0.0 K/mm3 (0.0-0.1) 11/14/21 05:30 Metamyelocytes # 0.0 K/mm3 11/14/21 05:30 Myelocytes # 0.0 K/mm3 11/14/21 05:30 Promyelocytes # 0.0 K/mm3 11/14/21 05:30 Blast Cells # 0.0 K/mm3 11/14/21 05:30 WBC Morphology Not Reportable 11/14/21 05:30 Hypersegmented Neuts Not Reportable 11/14/21 05:30 Hyposegmented Neuts Not Reportable 11/14/21 05:30 Hypogranular Neuts Not Reportable 11/14/21 05:30 Smudge Cells Not Reportable 11/14/21 05:30 Toxic Granulation Not Reportable 11/14/21 05:30 Toxic Vacuolation Not Reportable 11/14/21 05:30 Dohle Bodies Not Reportable 11/14/21 05:30 Pelger-Huet Anomaly Not Reportable 11/14/21 05:30 Agata Rods Not Reportable 11/14/21 05:30 Platelet Estimate Consistent w auto 11/14/21 05:30 Clumped Platelets Not Reportable 11/14/21 05:30 Plt Clumps, EDTA Not Reportable 11/14/21 05:30 Large Platelets Not Reportable 11/14/21 05:30 Giant Platelets Not Reportable 11/14/21 05:30 Platelet Satelliting Not Reportable 11/14/21 05:30 Plt Morphology Comment Not Reportable 11/14/21 05:30 RBC Morphology Not Reportable 11/14/21 05:30 Dimorphic RBCs Not Reportable 11/14/21 05:30 Polychromasia Not Reportable 11/14/21 05:30 Hypochromasia 1+ 11/14/21 05:30 Poikilocytosis Not Reportable 11/14/21 05:30 Anisocytosis 1+ 11/14/21 05:30 Microcytosis Not Reportable 11/14/21 05:30 Macrocytosis Not Reportable 11/14/21 05:30 Spherocytes Not Reportable 11/14/21 05:30 Pappenheimer Bodies Not Reportable 11/14/21 05:30 Sickle Cells Not Reportable 11/14/21 05:30 Target Cells Not Reportable 11/14/21 05:30 Tear Drop Cells Not Reportable 11/14/21 05:30 Ovalocytes Few 11/14/21 05:30 Helmet Cells Not Reportable 11/14/21 05:30 [place] Bodies Not Reportable 11/14/21 05:30 Minier Rings Not Reportable 11/14/21 05:30 Ishan Cells Not Reportable 11/14/21 05:30 Bite Cells Not Reportable 11/14/21 05:30 Crenated Cell Not Reportable 11/14/21 05:30 Elliptocytes Not Reportable 11/14/21 05:30 Acanthocytes (Spur) Not Reportable 11/14/21 05:30 Rouleaux Not Reportable 11/14/21 05:30 Hemoglobin C Crystals Not Reportable 11/14/21 05:30 Schistocytes Not Reportable 11/14/21 05:30 Malaria parasites Not Reportable 11/14/21 05:30 Joshua Bodies Not Reportable 11/14/21 05:30 Hem Pathologist Commnt No 11/14/21 05:30 PT 16.9 Sec. (12.2-14.9) H 11/13/21 09:03 INR 1.20 (0.87-1.13) H 11/13/21 09:03 APTT 32.0 Sec. (24.2-36.6) 11/13/21 09:03 ABG pH 7.384 pH Units (7.350-7.450) 11/14/21 03:45 ABG pCO2 35.5 mm Hg 11/14/21 03:45 ABG pO2 112.8 mm Hg (80.0-90.0) H 11/14/21 03:45 ABG HCO3 20.7 mmol/L (20.0-26.0) 11/14/21 03:45 ABG O2 Saturation 98.1 % (95.0-99.0) 11/14/21 03:45 ABG O2 Content 9.1 (0.0-44) 11/14/21 03:45 ABG Base Excess -4.0 mmol/L (-2.0-3.0) L 11/14/21 03:45 ABG Hemoglobin 6.6 gm/dl (14.0-18.0) L 11/14/21 03:45 ABG Carboxyhemoglobin 1.7 % (0.0-5.0) 11/14/21 03:45 ABG Methemoglobin 0.6 % (0.0-1.5) 11/14/21 03:45 Oxyhemoglobin 95.8 % (95.0-99.0) 11/14/21 03:45 FiO2 40 % 11/14/21 03:45 Sodium 133 mmol/L (137-145) L D 11/16/21 04:00 Potassium 3.3 mmol/L (3.6-5.0) L 11/16/21 04:00 Chloride 104.6 mmol/L (98-107) 11/16/21 04:00 Carbon Dioxide 18 mmol/L (22-30) L 11/16/21 04:00 Anion Gap 14 mmol/L 11/16/21 04:00 BUN 12 mg/dL (9-20) 11/16/21 04:00 Creatinine 0.3 mg/dL (0.8-1.3) L 11/16/21 04:00 Estimated GFR > 60 ml/min 11/16/21 04:00 BUN/Creatinine Ratio 40 % 11/16/21 04:00 Glucose 194 mg/dL (75-100) H 11/16/21 04:00 POC Glucose 114 mg/dL (70-105) H 11/18/21 20:45 Calcium 7.4 mg/dL (8.4-10.2) L 11/16/21 04:00 Phosphorus 2.10 mg/dL (2.5-4.5) L 11/16/21 04:00 Magnesium 1.60 mg/dL (1.7-2.3) L 11/16/21 04:00 Iron 9 ug/dL (49-181) L 11/14/21 17:59 TIBC 155 mcg/dL (250-450) L 11/14/21 17:59 Total Bilirubin 0.30 mg/dL (0.1-1.2) 11/14/21 05:30 AST 14 units/L (5-40) 11/14/21 05:30 ALT 9 units/L (7-56) 11/14/21 05:30 Alkaline Phosphatase 80 units/L (35-129) 11/14/21 05:30 Troponin T 0.050 ng/mL (0.00-0.029) H 11/13/21 11:33 NT-Pro-B Natriuret Pep 1118 pg/mL (0-900) H 11/13/21 09:03 Total Protein 6.2 g/dL (6.3-8.2) L 11/14/21 05:30 Albumin 2.1 g/dL (3.9-5) L 11/14/21 05:30 Albumin/Globulin Ratio 0.5 % 11/14/21 05:30 Triglycerides 96 mg/dL (2-149) 11/13/21 11:33 Cholesterol 115 mg/dL (50-199) 11/13/21 11:33 LDL Cholesterol Direct 61 mg/dL (50-130) 11/13/21 11:33 HDL Cholesterol 28 mg/dL (40-59) L 11/13/21 11:33 Cholesterol/HDL Ratio 4.10 % 11/13/21 11:33 Vitamin B12 483.5 pg/mL (211-911) 11/14/21 17:59 TSH 1.680 mlU/mL (0.270-4.200) 11/13/21 09:03 Free T4 1.27 ng/dL (0.76-1.46) 11/13/21 09:03 Urine Color Yellow (Yellow) 11/13/21 11:12 Urine Turbidity Cloudy (Clear) 11/13/21 11:12 Urine pH 6.0 (5.0-7.0) 11/13/21 11:12 Ur Specific [place] 1.015 (1.003-1.030) 11/13/21 11:12 Urine Protein 100 mg/dl mg/dL (Negative) 11/13/21 11:12 Urine Glucose (UA) Negative mg/dL (Negative) 11/13/21 11:12 Urine Ketones 15 mg/dL (Negative) 11/13/21 11:12 Urine Blood Large (Negative) A 11/13/21 11:12 Urine Nitrite Negative (Negative) 11/13/21 11:12 Urine Bilirubin Negative (Negative) 11/13/21 11:12 Urine Urobilinogen 0.0 mg/dL (<2.0) 11/13/21 11:12 Ur Leukocyte Esterase Moderate (Negative) 11/13/21 11:12 Urine WBC (Auto) > 182.0 /HPF (0.0-6.0) H 11/13/21 11:12 Urine RBC (Auto) > 182.0 /HPF (0.0-6.0) 11/13/21 11:12 Urine Bacteria (Auto) 2+ /HPF (Negative) 11/13/21 11:12 Ur Yeast w Hyphae Few /HPF 11/13/21 11:12 Urine Yeast (Budding) Few /HPF 11/13/21 11:12 Vancomycin Trough 26.4 ug/mL (5.0-20.0) H 11/17/21 Unknown Blood Type A POSITIVE 11/13/21 09:08 Antibody Screen Negative 11/13/21 09:08 Crossmatch See Detail 11/13/21 09:08 Microbiology: Microbiology 11/14/21 09:25 Peripheral/Venous Blood Culture - Preliminary NO GROWTH AFTER 4 DAYS 11/14/21 09:25 Peripheral/Venous Blood Culture - Preliminary NO GROWTH AFTER 4 DAYS [place]/IV: Voiding Method Suprapubic catheter Active Medications - Current Medications Current Medications: Generic Name Dose Route Start Last Admin Trade Name Freq PRN Reason Stop Dose Admin Acetaminophen 650 mg 11/13/21 13:07 Acetaminophen 650 Mg Rect Supp AL Q6H PRN Pain MILD(1-3)/Fever >100.5/CHIU Albuterol 2.5 mg 11/17/21 09:00 Albuterol 2.5 Mg/3 Ml Nebu IH Q4HRT PRN Shortness Of Breath Artificial Tears 1 drops 11/15/21 10:00 11/18/21 10:03 Hypromellose 0.5% Ophth Soln 15 Ml OU 1 drops QDAY YE Administration Dextrose 50 ml 11/15/21 12:05 11/18/21 06:28 Dextrose 50% In Water (25gm) 50 Ml Syringe IV 50 ml Q30MIN PRN Administration Hypoglycemia Protocol Ferrous Sulfate 300 mg 11/15/21 10:00 11/18/21 10:03 Ferrous Sulfate 300 Mg (60mg Elemental Iron) / 5 Ml Oral Liqd PO 300 mg QDAY YE Administration Fish Oil 1,000 mg 11/14/21 22:00 11/18/21 22:21 [place]-3 Fatty Acids/Fish Oil 1 Gram Cap PO 1,000 mg BID YE Administration Vancomycin HCl 1,250 mg/ 275 mls @ 166.667 mls/hr 11/19/21 10:00 Sodium Chloride IV Q12H YE Metoclopramide HCl 10 mg 11/13/21 21:18 Metoclopramide 10 Mg/2 Ml Inj IV Q6H PRN Nausea And Vomiting Morphine Sulfate 2 mg 11/13/21 13:11 11/19/21 00:09 Morphine 2 Mg/1 Ml Inj IV 2 mg Q4H PRN Administration Pain, Moderate (4-6) Multivitamins/Minerals 1 each 11/15/21 10:00 11/18/21 10:03 Multivitamins,Ther W-Minerals Tab PO 1 each QDAY YE Administration Ondansetron HCl 4 mg 11/13/21 21:18 Ondansetron 4 Mg/2 Ml Inj IV Q3H PRN Nausea And Vomiting Pantoprazole Sodium 40 mg 11/18/21 09:00 11/18/21 10:03 Pantoprazole 40 Mg Tab PO 40 mg QDAC YE Administration Polyethylene Glycol 17 gm 11/18/21 08:30 Polyethylene Glycol 3350 17 Gm Powder PO BID PRN Laxative Effect Senna 8.6 mg 11/18/21 08:30 Sennosides 8.6 Mg Tab PO Q12H PRN Laxative Effect Sodium Chloride 10 ml 11/13/21 22:00 11/18/21 22:21 Sodium Chloride 0.9% 10 Ml Flush Syringe IV 10 ml BID YE Administration Sodium Chloride 10 ml 11/13/21 21:18 Sodium Chloride 0.9% 10 Ml Flush Syringe IV PRN PRN LINE FLUSH Nutrition/Malnutrition Assess - Dietary Evaluation Nutrition/Malnutrition Findings: Nutrition Notes Start: 11/14/21 1 6:07 Freq: Status: Active Protocol: Document 11/16/21 11:20 MERRY (Rec: 11/16/21 11:39 MERRY [id number]) Nutrition Notes Initial or Follow up Brief Note Current Diagnosis COPD,Sepsis,Hypertension, Respiratory Failure, Malnutrition Other Pertinent Diagnosis COPD, CHF, Metabolic Encephalopathy, Dysphagia, Anemia, Hypotension, ... Current Diet TF-Vital AF 1.2 Darvin @ 65 ml/hr (from D 11/15). Height 6 ft Weight 75.9 kg [place] Body Weight (kg) 80.90 BMI 22.6 Weight change and time frame Discrepancy of 7.861 Kg body weight gain reporterd in 1 day . Weight Status Appropriate Subjective/Other Information RD consult for write/manage TF . TF was prescribed and order yesterday on 11/15. Pt was temporarly on NPO for PEG tube placement today 11/16 , according to RN notes. HEALTH ADMINISTRATOR note on 11/16/21 09:14: Modified Barium Swallow study has been conducted. Patient presents with significantly reduced A-P bolus propulsion with premature spillage of all consistencies. Swallow reflex is delayed with some residuals in the pharynx, however, with a second swallow , residuals cleared. Laryngeal penetration was identified with thins. Although no aspiration was identified, the patient if not fed properly, is at significant risk for aspiration due to the factors stated above. He does not desire to be placed in an upright position and if fed rapidly or with a significant amount of food placed in the oral cavity without adequate clearance, the potential for aspiration is extremely high will will result in aspiration pneumonia. If the patient is fed under ideal conditions with small bolus volumes of food and liquids at a slow rate and allowed to effectively clear, the potential for aspiration is lessened. With the presence of lung diseases, it is vital that these precautions be strictly adhered to in the prevention of aspiration. Recommend a pureed diet with nectar thickened liquids. Patient should be fed upright at 90 degrees regardless of his resistance. Small bites and sips should be given, allowing the him to clear prior to additional boluses. NO STRAWS SHOULD BE USED. Patient must remain upright 30 minutes following the completion of a meal. A swallowing precaution sign will be placed above the patient's bed. THESE GUIDELINES MUST BE STRICTLY FOLLOWED OR THERE IS A POTENTIAL FOR THE PATIENT TO ASPIRATE. The patient's capacity to swallow will progressively digress based on his diagnoses; therefore, he will be followed to ensure continued safety.- END OF NOTE . Percent of energy/protein needs met: Prescribed TF-Vital AF 1.2 Darvin @ 65 ml/hr provides for energy/protein needs (1,885 Kcal/118 g) during LOS, 84% Kcal; 100% AA. #2 Nutrition Diagnosis Swallowing difficulty Diagnosis Progress(for reassessment Continues documentation) #1 Nutrition Diagnosis Malnutrition Diagnosis Progress(for reassessment Continues documentation) Is patient on ventilator? No Is Patient Ambulatory and/or Out of Bed No REE-([facility] [facility]-confined to bed) 1891.920 Kcal/Kg value to use for calculation 30 Approximate Energy Requirements Using 2277 kcal/Kg Calculation Used for Recommendations Kcal/kg Additional Notes Protein: 1.2-1.5 g/Kg IBW; 97- 122 g/day. Fluids: 1 ml/Kcal, or as per MD. Nutrition Intervention Nutrition Support: When pertinet (after PEG placement), resume TF-Vital AF 1.2 Darvin @ 65 ml/hr. Flush: 160 ml water Q 4 hr, or as per MD. Kcal 1,885 Protein (gm) 118 Carbohydrates (gm) 174 Fat (gm) 85 Fluid (mL) 1,274 Fiber (gm) 8 % RDI: 84% Kcal; 100% AA. Goal #1 Provide at least 75% of energy /protein needs through Enteral Feeding during LOS. Goal #2 Adjust the dietary intervention to better serve Pt's needs and clinical conditions during LOS. Follow-Up By: 11/23/21 Additional Comments When pertinent, continue monitoring TF tolerance and BM .
[2021-11-19] MEDS: FERROUS SULFATE 300 MG (60MG Elemental Iron) / 5 mL ORAL LIQD PO SCH (09:59)
[2021-11-19] MEDS: HYPROMELLOSE 0.5% OPHTH SOLN 15 ML OU SCH (09:59)
[2021-11-19] MEDS: OMEGA-3 FATTY ACIDS/FISH OIL 1 GRAM CAP PO SCH ×2 (09:59→21:27)
[2021-11-19] MEDS: MULTIVITAMINS,THER W-MINERALS TAB PO SCH (10:00)
[2021-11-19] MEDS ORDERED: VANCOMYCIN 1,250 MG in SODIUM CHLORIDE 0.9% 250ML 250 ML IV SCH (10:00)
[2021-11-19] MEDS: PANTOPRAZOLE 40 MG TAB PO SCH (10:00)
[2021-11-19] MEDS: oxyCODONE /ACETAMINOPHEN 5-325MG TAB PO PRN (12:51)
[2021-11-19] MEDS: VANCOMYCIN/NS 1 GM/250 ML 1 GM/250 ML BAG IV SCH (14:51)
[2021-11-19 22:05] LABS: Basophils % (Auto) 0.4 % (0.0-1.8); Eosinophils # (Auto) 0.2 K/mm3 (0.0-0.4); Eosinophils % (Auto) 1.8 % (0.0-4.3); Hematocrit 27.5 % (35.5-45.6); Hemoglobin 8.9 gm/dl (11.8-15.2); Lymphocytes # (Auto) 1.1 K/mm3 (1.2-5.4); Lymphocytes % (Auto) 11.5 % (13.4-35.0); Mean Corpuscular HGB Conc 32 % (32-34); Mean Corpuscular Volume 78 fl (84-94); Monocytes # (Auto) 0.9 K/mm3 (0.0-0.8); Monocytes % (Auto) 8.8 % (0.0-7.3); Platelet Count 519 K/mm3 (140-440); Red Blood Count 3.54 M/mm3 (3.65-5.03)
[2021-11-19 22:06] LABS: Red Cell Distribution Width 21.8 % (13.2-15.2)
[2021-11-19 22:20] LABS: Blood Urea Nitrogen 10 mg/dL (9-20); Calcium 8.3 mg/dL (8.4-10.2); Hemolysis Index 26
[2021-11-19 22:44] LABS: BUN/Creatinine Ratio 25
[2021-11-20] MEDS: POTASSIUM CHLORIDE 20 MEQ 20 MEQ/100 ML BAG IV SCH ×2 (01:34→02:35)
[2021-11-20] MEDS: FERROUS SULFATE 300 MG (60MG Elemental Iron) / 5 mL ORAL LIQD PO SCH (09:33)
[2021-11-20] MEDS: MULTIVITAMINS,THER W-MINERALS TAB PO SCH (09:33)
[2021-11-20] MEDS: OMEGA-3 FATTY ACIDS/FISH OIL 1 GRAM CAP PO SCH (09:34)
[2021-11-20] MEDS: PANTOPRAZOLE 40 MG TAB PO SCH (09:34)
[2021-11-20] MEDS: HYPROMELLOSE 0.5% OPHTH SOLN 15 ML OU SCH (09:35)
[2021-11-20] MEDS: oxyCODONE /ACETAMINOPHEN 5-325MG TAB PO PRN (09:38)
--- NOTE | 2021-11-20 13:53 | Discharge Summary ---
Providers - Providers Date of Admission: 11/13/21 13:11 Date of discharge: 11/20/21 Attending physician: AMOR QUIROGA MD 11/13/21 Consult to Case Management [CONS] Routine Services Needed at Discharge: Enamel Shader Other Notified:: case management 11/13/21 13:07 Consult to Dietitian/Nutrition [CONS] Routine Physician Instructions: Reason For Exam: Reason for Consult: Malnutrition Consult to Physician [CONS] Routine Comment: Consulting Provider: RAJ MACIAS Physician Instructions: Reason For Exam: ICU/ hypotension/severe anemia 11/14/21 03:06 Consult to Wound/ET Nurse [CONS] Urgent Reason For Exam: wound eval 11/14/21 10:35 Consult to Physician [CONS] Routine Comment: Consulting Provider: SCOTT PAIZ Physician Instructions: Reason For Exam: ?GIB 11/15/21 11:02 Consult to Dietitian/Nutrition [CONS] Routine Physician Instructions: Reason For Exam: Reason for Consult: Write/Manage Tube Feeding 11/16/21 08:08 Consult to Dietitian/Nutrition [CONS] Routine Physician Instructions: Reason For Exam: Reason for Consult: Write/Manage Tube Feeding Primary care physician: PATI PALACIOS Hospitalization Reason for admission: respiratory failure, septic shock Condition: Stable Hospital course: 66-year-old male with history of multiple medical problems who presented from intermediate facility with shortness of breath. He was found to be in severe respiratory distress and intubated in the emergency department. He was admitted to the ICU. He was found to have anemia and leukocytosis. He was started on empiric antibiotics and received 2 units of blood. He was started on pressors for hypotension. GI was consulted for probable rectal fecal impaction and patient was disimpacted. His respiratory status improved and he was extubated. He was treated for MRSA pneumonia for a total of 7 days. Modified barium swallow was performed for probable G-tube insertion. Patient refused NG tube placement and he was recommended for restricted diet. He was informed of the risks of aspiration and still declined. Once stable, patient was discharged back to nursing facility. Disposition: [facility] Final Discharge Diagnosis (Prints w/discharge instructions): Septic shock. Acute hypoxic respiratory failure. MRSA pneumonia. Symptomatic anemia. Hypokalemia. Paraplegia with suprapubic catheter. Multiple sclerosis. Dysphagia. Type 2 diabetes. History of DVT status post [place] filter. GERD. Chronic constipation. History of hypertension Time spent for discharge: 35 minutes Core Measure Documentation - Palliative Care Palliative Care/ Comfort Measures: Not Applicable - Core Measures Any of the following diagnoses?: history only Exam - Physical Exam Narrative exam: GENERAL: Thin male. In no acute distress. HEENT: Normocephalic. Atraumatic. NECK: Supple. CHEST/LUNGS: CTAB on room air HEART/CARDIOVASCULAR: RRR. No murmur, rubs or gallops appreciated. ABDOMEN: +BS. NT/ND. NEURO: Paraplegic. MUSCULOSKELETAL: No joint effusion EXTREMITIES: BLE with venous stasis changes and pitting edema. PSYCH: Cooperative. - Constitutional Vitals: Temp Pulse Resp BP Pulse Ox 98.2 F 114 H 19 97/55 98 11/20/21 08:11 11/20/21 08:11 11/20/21 08:11 11/20/21 08:11 11/20/21 08:11 Plan Care Plan Goals: Please follow-up with your primary care provider. We are currently holding warfarin due to blood loss and GI bleed. It can be restarted at the discretion of your PCP. Follow up with: PATI PALACIOS MD [Primary Care Provider] - 7 Days
[2021-11-20] MEDS ORDERED: POTASSIUM CHLORIDE ER 20 MEQ TAB PO SCH (15:00)
[2021-11-20] MEDS: DEXTROSE 50% IN WATER (25GM) 50 ML SYRINGE IV PRN (16:41)
[2021-11-20 20:32] VITALS: BP 92/56
== END 2021-11-20 17:00 | DRG 871 ==
LOC: ED 08:22 → CC1 13:11 → 4A 11-15 21:10
PROVIDERS: ADMIT Internal Medicine; ATTEND Student in an Organized Health Care Education/Training Program
PROC: 5A1935Z Respiratory Ventilation, Less than 24 Consecutive Hours (ICD-10-PCS; principal; 2021-11-13)
PROC: 0BH17EZ Insertion of Endotracheal Airway into Trachea, Via Natural or Artificial Opening (ICD-10-PCS; 2021-11-13)
PROC: 30233N1 Transfusion of Nonautologous Red Blood Cells into Peripheral Vein, Percutaneous Approach (ICD-10-PCS; 2021-11-13)
PROC: 4A033R1 Measurement of Arterial Saturation, Peripheral, Percutaneous Approach (ICD-10-PCS; 2021-11-13)
DX: A41.9 Sepsis, unspecified organism (principal); J96.01 Acute respiratory failure with hypoxia; G93.41 Metabolic encephalopathy; R65.21 Severe sepsis with septic shock; J15.212 Pneumonia due to Methicillin resistant Staphylococcus aureus; G82.20 Paraplegia, unspecified; J90 Pleural effusion, not elsewhere classified; E44.0 Moderate protein-calorie malnutrition; J44.0 Chronic obstructive pulmonary disease with (acute) lower respiratory infection; Z20.822 Contact with and (suspected) exposure to COVID-19; D64.9 Anemia, unspecified; Z68.20 Body mass index [BMI] 20.0-20.9, adult; G35 Multiple sclerosis; K21.9 Gastro-esophageal reflux disease without esophagitis; F03.90 Unspecified dementia, unspecified severity, without behavioral disturbance, psychotic disturbance, mood disturbance, and anxiety; I10 Essential (primary) hypertension; E11.9 Type 2 diabetes mellitus without complications; K59.00 Constipation, unspecified; Z79.01 Long term (current) use of anticoagulants; Z90.49 Acquired absence of other specified parts of digestive tract; Z88.5 Allergy status to narcotic agent; Z88.8 Allergy status to other drugs, medicaments and biological substances; R62.7 Adult failure to thrive
CPT/HCPCS: 36415; 71045; 74018; 74230; 80048; 80053; 80061; 80202; 81001; 82271; 82607; 82803; 82962; 83550; 83735; 83880; 84100; 84439; 84443; 84484; 85007; 85014; 85018; 85025; 85027; 85610; 85730; 86850; 86900; 86901; 86920; 87040; 87070; 87076; 87086; 87205; 93005; 94002; 94640; 94760; G0378; J2354; J3490; J7510; C9113; J0692; J1642; J1940; J2250; J2270; J2704; J2920; J3010; J3370; J3480; J7030; J7040; J7050; J7120; P9016; U0003